=== PATIENT | male | born 1935 | race Caucasian/White ===

== ENCOUNTER 2020-07-21 13:10 | Outpatient (REF) | payer MEDICARE, SELFPAY | END 2020-07-21 13:11 | disposition home or self-care (01) | LOC: HO.HMGCLDS 13:10 | PROVIDERS: Visit Provider Internal Medicine | DX: Z20.828 Contact with and (suspected) exposure to other viral communicable diseases (principal) | CPT/HCPCS: C9803; U0003 ==

== ENCOUNTER 2020-09-04 15:46 | Outpatient (REF) | payer MEDICARE, SELFPAY ==
--- NOTE | 2020-09-04 15:49 | MR_ITS ---
EXAMINATION: MR ANGIOGRAPHY BRAIN WITHOUT CONTRAST CLINICAL INFORMATION: Follow-up cerebral artery aneurysm. COMPARISON: MR angiogram of the head 01/21/2018. TECHNIQUE: A 3-dimensional noncontrast [id number] MR angiogram of the head was performed. MIP reconstructions were generated in multiple orientations at the acquisition workstation. Multiple three-dimensional surface rendered images and maximum intensity projection images were generated on a dedicated 3-D lab workstation. Arterial stenoses are measured in accordance with NASCET criteria or similar method if applicable. FINDINGS: Again there is an anteriorly projecting aneurysm measuring 3.4 mm from base to apex involving the distal M1 segment of the left middle cerebral artery. This finding has not substantially changed when compared to most recent prior examination from 01/21/2018. A much smaller presumed aneurysm involving the anterior margin of the distal M1 segment of the right middle cerebral artery is also unchanged measuring approximately 1.4 mm from base apex. Otherwise no new aneurysm is visualized elsewhere within the intracranial compartment. Intracranial internal carotid arteries are patent. The intradural vertebral artery segments and basilar artery are patent. No high-grade stenosis or proximal occlusion is visualized within the intracranial vessels. MR/MR angio head wo con IMPRESSION: Stable examination. An anteriorly projecting 3.4 mm aneurysm involving the distal M1 segment of the left middle cerebral artery remains unchanged. A much smaller contour abnormality involving the anterior margin of the right middle cerebral artery is also unchanged presumed representing a second tiny aneurysm measuring 1.4 mm.
== END 2020-09-04 15:47 | disposition home or self-care (01) ==
LOC: HO.MRI 15:46
PROVIDERS: Visit Provider Psychiatry & Neurology Neurology
DX: I67.1 Cerebral aneurysm, nonruptured (principal)
CPT/HCPCS: 70544

== ENCOUNTER 2021-10-24 12:15 | Inpatient (IN) | payer MEDICARE, SELFPAY ==
--- NOTE | 2021-10-24 | ECG_ITS ---
Test Reason : CHEST PAIN Blood Pressure : / mmHG Vent. Rate : 068 BPM Atrial Rate : 000 BPM P-R Int : 000 ms QRS Dur : 100 ms QT Int : 432 ms P-R-T Axes : 000 -27 145 degrees QTc Int : 459 ms Normal sinus rhythm Premature atrial complexes Minimal voltage criteria for LVH, may be normal variant ( [place] product ) Anteroseptal infarct (cited on or before 23-JAN-2017) T wave abnormality, consider lateral ischemia Abnormal ECG When compared with ECG of 23-JAN-2017 13:45, No significant changes seen Referred By: Generic ED Physician Electronically Signed By:CARMITA NAQVI
--- NOTE | ~2021-10-24 | CT_ITS ---
EXAMINATION: CT ABDOMEN AND PELVIS WITHOUT CONTRAST CLINICAL INFORMATION: Abdominal distention, nausea and vomiting COMPARISON: Renal ultrasound 08/08/2016, CT abdomen pelvis 07/05/2016 TECHNIQUE: Multidetector volumetric imaging was performed from the superior aspect of the liver through the pubic symphysis. Sagittal and coronal reformatted images were obtained on the technologist's workstation. This CT examination was performed using dose optimization techniques as appropriate, variously including the following: *Automated exposure control *Adjustment of mA and/or kV according to patient size (this includes techniques or standardized protocols for targeted exams where dose is matched to indication/reason for exam; i.e. extremities or head) *Use of iterative reconstruction technique DLP: 390 mGy-cm FINDINGS: LUNG BASES: Chronic emphysematous changes and probable fibrotic changes are seen at the lung bases. Some minimal traction bronchiectasis is present. No significant effusion or lung masses seen LIVER, GALLBLADDER, AND BILIARY TREE: The liver is normal in size, shape, and attenuation. No focal hepatic lesion or biliary ductal dilatation is present. The gallbladder is unremarkable with no evidence of radiopaque gallstones, gallbladder wall thickening, or obvious pericholecystic inflammatory changes. PANCREAS: Unremarkable. SPLEEN: Unremarkable. ADRENAL GLANDS: Unremarkable. KIDNEYS AND URETERS: The kidneys are normal in size, shape, and attenuation. Again seen are scattered calcifications throughout both kidneys which appear to be vascular in nature. Bilateral water density cysts are present, Bosniak class I. No hydronephrosis, hydroureter, or definite intrarenal collecting system calculi seen. Moderate bilateral perinephric stranding. BLADDER: Bladder is grossly abnormal and markedly trabeculated with multiple intramural diverticula. Mucosal masses cannot be excluded. GASTROINTESTINAL TRACT: A small hiatal hernia is present which has increased in size since 2016. Marked colonic diverticular changes are present without evidence of diverticulitis. The left upper quadrant, there are abnormal small bowel loops with dilatation and thickening which are most likely the cause of the portal venous gas. This could be due to enteritis or other inflammatory process. No small bowel obstruction is seen.. The appendix is unremarkable. ABDOMINAL WALL: No significant hernia is appreciated. LYMPH NODES: Normal. VASCULAR: Severe atherosclerotic changes present in the aorta and its branches. Suspect bilateral common iliac disease as well as bilateral renal artery stenoses and possible celiac and SMA stenoses. PELVIC VISCERA: Unremarkable. OSSEOUS STRUCTURES: Degenerative changes are present in the spine with scoliosis convex to the right. There is fusion from L3 through S1. Degenerative changes present in both hips, right greater than left CT/CT abdomen pelvis wo con IMPRESSION: 1. Abnormal small bowel in the left upper quadrant with equalization of other small bowel with associated portal venous gas. These findings may be related to an enteritis or other inflammatory process. 2. Markedly dilated bladder extending well above the umbilicus. Insertion of a Taveras catheter are probably help this patient's abdominal distention. The bladder is grossly abnormal with trabeculations and mucosal abnormalities cannot be excluded. 3. Severe atherosclerotic disease 4. Marked degenerative changes in the spine. Fleischner guidelines were followed.
--- NOTE | ~2021-10-24 | XR_ITS ---
EXAMINATION: XR CHEST CLINICAL INFORMATION: Chest pain COMPARISON: None TECHNIQUE: 2 views of the chest were obtained. FINDINGS: The lungs are well-expanded and clear of acute process. The heart size and pulmonary vascularity is normal. There is valvular stent and surgical jose carlos in the left upper chest from previous intervention. No gross bony abnormality. XR/XR chest 2V IMPRESSION: No acute cardiopulmonary process seen.
[2021-10-24 14:25] VITALS: BP 218/68; PULSE 68; RESP 16; TEMP 36.6; O2SAT 97; BMI 20.5
[2021-10-24 14:51] LABS: MANUAL DIFF FLAG NO
[2021-10-24 14:53] LABS: Basophils Absolute Auto 0.1 X10*3/uL (0.0-0.2); Basophils Percent Auto 0.4 % (0-2); Eosinophils Absolute Auto 0.1 X10*3/uL (0.0-0.4); Eosinophils Percent Auto 0.6 % (0-4); Hematocrit 41.2 % (42.0-52.0); Hemoglobin 12.9 g/dl (14.0-18.0); Imm Gran Abs Auto 0.09 X10*3/uL (0.00-0.03); Imm Gran Pct Auto 0.6 % (0.0-0.4); Lymphocytes Absolute Auto 1.8 X10*3/uL (1.2-4.9); Lymphocytes Percent Auto 11.1 % (20-40); Mean Corpuscular HGB Conc 31.3 g/dl (31.0-36.0); Mean Corpuscular Hemoglobin 29.3 pg (27.0-33.0); Mean Corpuscular Volume 93.6 fL (80.0-98.0); Mean Platelet Volume 9.8 fL (9.4-12.4); Monocytes Absolute Auto 0.9 X10*3/uL (0.1-1.2); Monocytes Percent Auto 5.8 % (2-11); Neutrophils Absolute Auto 13.2 x10*3/uL (2.0-8.3); Neutrophils Percent Auto 81.5 % (45-73); Platelet Count 266 X10*3/uL (160-400); Red Cell Distribution Width 14.3 % (11.0-16.0); White Blood Count 16.2 X10*3/uL (4.8-10.8)
[2021-10-24 15:21] LABS: Alanine Aminotransferase 17 U/L (0-40); Albumin Level 4.4 g/dL (3.5-5.0); Alkaline Phosphatase 74 U/L (39-117); Anion Gap 17 (12-20); Aspartate Amino Transferase 20 U/L (5-37); Bilirubin Direct 0.2 mg/dL (0.0-0.5); Bilirubin Total 0.5 mg/dL (0.0-1.0); Blood Urea Nitrogen 53 mg/dL (9-16); Calcium 10.5 mg/dL (8.4-10.2); Carbon Dioxide 23 mmol/L (22-29); Chloride 106 mmol/L (96-108); Creatinine Clr Calc Pharmacy 16.5; Estimated Glomerular Filt Rate 21; Glucose Random 139 mg/dL (60-115); Potassium 5.7 mmol/L (3.3-5.1); Sodium 140 mmol/L (135-145); Total Protein 7.9 g/dL (6.5-8.0)
[2021-10-24 16:59] LABS: B Type Natriuretic Peptide 634 pg/mL (<100); Troponin-I High Sensitivity 18.3 ng/L (<3.5-35.0)
--- NOTE | 2021-10-24 17:00 | ED.ABDPAIN ---
HPI - Abdominal Pain General Chief Complaint: Abdominal Pain Stated Complaint: N/V/D,weakness Time Seen by Provider: 10/24/21 16:22 Source: patient Mode of arrival: ambulatory History of Present Illness HPI narrative: 85-year-old male with a past medical history of aortic valve replacement, CVA, COPD, CKD, presenting to the ED complaining of upper abdominal pain and chest pain beginning last night with associated nausea and vomiting. Reports abdominal distension. Denies fever, chills, new or worsening cough, diarrhea, constipation, dysuria/hematuria, pedal edema. Last BM this morning MD elicited complaint: abdominal pain Onset (ago): day(s) Related Data Home Medications Medication Instructions Recorded Confirmed aspirin 81 mg tablet,delayed 81 mg PO DAILY 10/24/21 10/24/21 release atorvastatin 10 mg tablet 1 tab PO BEDTIME 10/24/21 10/24/21 calcitriol 0.25 mcg capsule 0.25 mcg PO Q2D 10/24/21 10/24/21 cholecalciferol (vitamin D3) 50 50 mcg PO DAILY 10/24/21 10/24/21 mcg (2,000 unit) tablet (Vitamin D3) cyanocobalamin (vitamin B-12) 1,500 mcg PO DAILY 10/24/21 10/24/21 1,500 mcg tablet,extended release ferrous sulfate 324 mg (65 mg 648 mg PO DAILY 10/24/21 10/24/21 iron) tablet,delayed release hydralazine 10 mg tablet 1 tab PO TID 10/24/21 10/24/21 metoprolol tartrate 25 mg tablet 1 tab PO BID 10/24/21 10/24/21 oxycodone 20 mg tablet 1 tab PO BID PRN 10/24/21 10/24/21 tamsulosin 0.4 mg capsule 1 cap PO DAILY 10/24/21 10/24/21 Allergies Allergy/AdvReac Type Severity Reaction Status Date / Time No Known Allergies Allergy Verified 10/24/21 14:24 [No Known Allergies*] Review of Systems Review of Systems Constitutional: No Fever, No Chills, No Fatigue, No Malaise ENT/Mouth: No Ear Pain, No Nasal Congestion, No sore throat, No Rhinorrhea, No Swallowing Difficulty Eyes: No Eye Pain, No Swelling, No Redness Cardiovascular: + Chest Pain, No SOB, No Dyspnea on Exertion, No Orthopnea, No Edema, No Palpitations Respiratory: No Cough, No Sputum, No Wheezing, No Dyspnea Gastrointestinal: + Nausea, + Vomiting, No Diarrhea, No Constipation, + Abdominal pain Genitourinary: No Dysuria, No Urinary Frequency, No Hematuria, No Urinary Incontinence, No Flank Pain, No Urinary Flow Changes Musculoskeletal: No joint pain, No Myalgias, No Joint Swelling Skin: No Skin Lesions, No rash Neuro: No Weakness, No Numbness, No Loss of Consciousness, No Headache Yes all other systems are reviewed and are negative FOR[facility]LY [facility], [facility] Past Medical History Attestation statement: The following information was validated with the patient. Medical History CVA (cerebral vascular accident) Surgical History H/O aortic valve replacement with porcine valve Social History Social History Advance Directives: No Advance Directives Information Provided: No Physical Exam ED Vital Signs: Vital Signs - 24 hr 10/24/21 14:25 Temperature 98 F Pulse Rate 68 Respiratory Rate 16 Blood Pressure 218/68 H Pulse Oximetry 97 BMI result Body Mass Index 20.5 Const General: cooperative Orientation/consciousness: patient oriented x3 Limitations: no limitations HENMT Head: Yes normal to inspection Ears: hearing grossly normal bilaterally General nose exam: Normal external nose present Face and sinus: Yes normal facial exam Eyes General: appearance normal, both eyes and all related structures EOM: EOMs intact bilaterally Neck Neck: Yes normal visual inspection and Yes no meningeal signs Resp Effort & Inspection: normal respiratory effort Auscultation: wheezes expiratory wheezes and lower bilaterally Cardio Rate: regular rate Heart sounds: S1 normal heart sound present and S2 normal heart sound present GI Inspection: Yes normal to inspection and Yes distended Palpation (GI): Soft to palpation, Tenderness to palpation present (GI) in the epigastrum, in the LUQ and in the RUQ, no guarding and not rigid Skin Rashes: no rashes Wounds: no wounds Neuro General: patient oriented x3 and no meningeal signs Gait exam (Neuro): Normal gait present Extrem General: Yes normal to inspection Course Course Course Narrative: -1700--noted leukocytosis of 16.2 likely reactive from nausea/emesis > empiric IV Zosyn ordered as well as lactic/blood cultures -potassium elevated to 5.7 > p.o. Kayexalate and albuterol ordered. Will repeat. -BUN/creatinine elevated acute on chronically (labs from 2018 creatinine 2.2 which appears to be around pts baseline- no recent priors) -initial troponin 18.3 >will obtain 3 hour repeat. BNP 634 (elevated in the past) XR chest 2V IMPRESSION: No acute cardiopulmonary process seen. -EKG showing AFib, patient with no reported history >[id number] Score recommend anticoagulation, however patient with history of guaiac-positive stool -1800--ED care transferred to [facility] pending remaining labs, lactic, repeat potassium, CT results, and anticipated admission MDM - Abdominal Pain MDM Narrative Medical decision making narrative: 85-year-old male with a past medical history of aortic valve replacement, CVA, COPD, presenting to the ED complaining of upper abdominal pain and chest pain beginning last night with associated nausea and vomiting. On exam hypertensive, appears in pain, abdomen distended with upper abdominal tenderness, no rebound or guarding, lungs with bibasilar expiratory wheeze. Concern for atypical ACS vs pancreatitis vs cholecystitis/lithiasis vs ?SBO. Concern for mild COPD exacerbation. concern for dissection/AAA. Plan: EKG, labs, UA, CXR, CT abdomen/pelvis, symptomatic treatment, re-evaluate Low concern for severe sepsis at this time Differential Diagnosis Differential diagnosis: Likely abdominal pain, acute appendicitis, constipation, diverticulitis, gastroenteritis, gastritis, pancreatitis, peptic ulcer disease and small bowel obstruction Medical Records Attestation: I reviewed the patient's medical records. Lab Data Attestation: I reviewed the patient's lab results. Result diagrams: 10/24/21 14:45 10/24/21 14:45 Labs: Lab Results 10/24/21 10/24/21 10/24/21 Range/Units 14:45 14:45 14:45 WBC 16.2 H (4.8-10.8) X10*3/uL RBC 4.40 L (4.60-5.80) X10*6/uL Hgb 12.9 L (14.0-18.0) g/dl Hct 41.2 L (42.0-52.0) % MCV 93.6 (80.0-98.0) fL MCH 29.3 (27.0-33.0) pg MCHC 31.3 (31.0-36.0) g/dl RDW 14.3 (11.0-16.0) % Plt Count 266 (160-400) X10*3/uL MPV 9.8 (9.4-12.4) fL Immature Gran % (Auto) 0.6 H (0.0-0.4) % Neut % (Auto) 81.5 H (45-73) % Lymph % (Auto) 11.1 L (20-40) % Mckean % (Auto) 5.8 (2-11) % Eos % (Auto) 0.6 (0-4) % Baso % (Auto) 0.4 (0-2) % Lymph # (Auto) 1.8 (1.2-4.9) X10*3/uL Mckean # (Auto) 0.9 (0.1-1.2) X10*3/uL Eos # (Auto) 0.1 (0.0-0.4) X10*3/uL Baso # (Auto) 0.1 (0.0-0.2) X10*3/uL Abs Immat Gran (auto) 0.09 H (0.00-0.03) X10*3/uL Absolute Neuts (auto) 13.2 H (2.0-8.3) x10*3/uL Absolute Nucleated RBC 0.000 (0.0-0.012) X10*3/uL Nucleated RBC % (auto) 0.0 (0.0-0.2) /100WBC Sodium 140 (135-145) mmol/L Potassium 5.7 H (3.3-5.1) mmol/L Chloride 106 (96-108) mmol/L Carbon Dioxide 23 (22-29) mmol/L Anion Gap 17 (12-20) BUN 53 H (9-16) mg/dL Creatinine 2.93 H (0.5-1.4) mg/dL Estim Creat Clear Calc 16.5 Estimated GFR 21 Random Glucose 139 H (60-115) mg/dL Calcium 10.5 H (8.4-10.2) mg/dL Magnesium 2.1 (1.6-2.6) mg/dL Total Bilirubin 0.5 (0.0-1.0) mg/dL Direct Bilirubin 0.2 (0.0-0.5) mg/dL AST 20 (5-37) U/L ALT 17 (0-40) U/L Alkaline Phosphatase 74 (39-117) U/L Troponin I High Sens 18.3 (<3.5-35.0) ng/L B-Natriuretic Peptide 634 H (<100) pg/mL Total Protein 7.9 (6.5-8.0) g/dL Albumin 4.4 (3.5-5.0) g/dL Lipase 35 (8-78) U/L ECG Data Attestation: I personally reviewed and interpreted this ECG as follows: ECG interpretation date: 10/24/21 ECG interpretation time: 14:28 Interpretation: EKG showing AFib at a rate of 68. QTC 459. T-wave abnormality in lateral leads. No STEMI Discharge Plan Discharge Clinical Impression: New onset a-fib, Abdominal pain, Acute hyperkalemia, Acute kidney injury superimposed on CKD Patient Disposition: Still a Patient Prescriptions: No Action hydralazine 10 mg tablet 1 tab PO TID 0RF atorvastatin 10 mg tablet 1 tab PO BEDTIME 0RF tamsulosin 0.4 mg capsule 1 cap PO DAILY 0RF metoprolol tartrate 25 mg tablet 1 tab PO BID 0RF oxycodone 20 mg tablet 1 tab PO BID PRN (Reason: Pain) 0RF aspirin [Aspir-81] 81 mg Tablet,Delayed Release (Dr/Ec) 81 mg PO DAILY 0RF Vitamin B-12 1,500 mcg Tablet Extended Release 1,500 mcg PO DAILY 0RF calcitriol 0.25 mcg Capsule 0.25 mcg PO Q2D 0RF ferrous sulfate 324 mg (65 mg iron) Tablet,Delayed Release (Dr/Ec) 648 mg PO DAILY 0RF cholecalciferol (vitamin D3) [Vitamin D3] 50 mcg (2,000 unit) Tablet 50 mcg PO DAILY 0RF
--- NOTE | 2021-10-24 17:05 | PHA.MEDREC ---
Pharmacy Consult ? Medication Reconciliation Pharmacy has completed the medication reconciliation.
[2021-10-24 17:07] LABS: Lipase 35 U/L (8-78); Magnesium 2.1 mg/dL (1.6-2.6)
[2021-10-24 18:21] VITALS: BP 197/77; PULSE 84; RESP 16; TEMP 37.3; O2SAT 94
[2021-10-24 18:21] LABS: COVID-19 Test Negative (Negative)
[2021-10-24 18:46] LABS: Lactic Acid 1.1 mmol/L (0.5-2.0)
[2021-10-24 18:55] LABS: Anion Gap 17 (12-20); Blood Urea Nitrogen 53 mg/dL (9-16); Calcium 10.1 mg/dL (8.4-10.2); Carbon Dioxide 21 mmol/L (22-29); Chloride 107 mmol/L (96-108); Creatinine Clr Calc Pharmacy 17.6; Estimated Glomerular Filt Rate 22; Glucose Random 114 mg/dL (60-115); Potassium 4.3 mmol/L (3.3-5.1); Sodium 141 mmol/L (135-145); Troponin-I High Sensitivity 24.6 ng/L (<3.5-35.0)
[2021-10-24 18:56] LABS: Appearance Urine CLOUDY; Color Urine YELLOW; Glucose Urine UA 100 MG/DL (NEG); Leukocyte Esterase Urine 3+ (NEG); Nitrite Urine POS (NEG); UACC Culture Trigger YES; Urine Blood 1+ (NEG); Urine Ketones NEG (NEG); Urine Protein 2+ MG/DL (NEG-TRACE)
[2021-10-24] MEDS: Sodium Polystyrene Sulfon/Sorb 15 GM/60 ML ORAL.SUSP 45 GM PO (19:02)
[2021-10-24] MEDS: ondansetron HCL 4 MG/2 ML VIAL IVPUSH (19:03)
[2021-10-24] MEDS: Piperacillin Sodium/Tazobactam 2.25 GM in 0.9 % Sodium Chloride 50 ML IV (19:03)
[2021-10-24] MEDS: 0.9 % Sodium Chloride 500 ML 999 ML IV (19:03)
[2021-10-24 19:10] LABS: Bacteria Urine TRACE /LPF; Renal Epithelial Cells Urine 1+ /LPF; Squamous Epithelial Cell Urine TRACE /LPF; WBC Urine TNTC /HPF (0-4)
[2021-10-24 19:11] LABS: Mucus Urine 3+ /LPF; WBC Clumps Urine NOTED
--- NOTE | 2021-10-24 22:26 | P.HPHOSP_ITS ---
History of Present Illness Date of Service: 10/24/21 Chief Complaint: abd pain this is an 85-year-old male with past medical history of CVA, aortic valve replacement, COPD, CKD who presents to the hospital with complaints of abdominal pain as well as midsternal chest pain. Patient reports that his symptoms star nae the night before, worsened over the day. He has had nausea and 1 episode of vomiting, no fever some chills. Patient reports midsternal chest pain is severe, nonradiating, constant, stabbing pain. He denies having any palpitations. No change in vision, he has history of CVA with chronic weakness on the right upper extremity, no new weakness numbness or tingling. He denies any cough, no shortness of breath. in regards to the abdominal pain, localized to the lower abdomen, nonradiating, 8/10, constant, not associated with any alleviating or exacerbating factors. Patient reports that he has had decreased urinary output for the past 24 hours. He denies any dysuria, urgency, or frequency. No lower extremity edema. On arrival to the ED patient hemodynamically stable with no significant abnormal vitals Labs are significant for WBC count of 16.2, hemoglobin of 12.9, initial pot assium of 5.7 that resolved 4.3 after repeat labs, BUN of 53, creatinine of 2.93 that improved to 2.75 after IV fluids, BNP of 634, UA that is positive for nitrites, leukocyte Estrace and WBC. Abdomen pelvic CT shows abnormal small bowel in the left upper quadrant with equalization of other small bowels with associated portal venous gas, this may be related to enteritis or other inflammatory process. The bladder is grossly abnormal with trabeculation and mucosal abnormalities cannot be excluded. Patient was also found to have urinary retention with Taveras catheter draining more than 700 cc of urine EKG showed Sinus rhythm with PACs and non-specific ST-Twave changes that were present on previous EKGs pt given IV abx, IV fluids and will be admitted for further management Review of Systems Review of Systems: Yes all other systems are reviewed and are negative [facility] Medical History (Updated 10/25/21 @ 06:30 by Cleve Mckeon MD) BPH (benign prostatic hyperplasia) CKD (chronic kidney disease) COPD (chronic obstructive pulmonary disease) CVA (cerebral vascular accident) Hypertension Surgical History (Updated 10/25/21 @ 06:22 by Cleve Mckeon MD) H/O aortic valve replacement with porcine valve S/P AVR (aortic valve replacement) Social History (Updated 10/25/21 @ 06:25 by Cleve Mckeon MD) Alcohol intake: never Tobacco use type: Cigarette Cigarette Packs Per Day: 1 Advance Directives: No Advance Directives Information Provided: No Meds Allergies Allergy/AdvReac Type Severity Reaction Status Date / Time No Known Allergies Allergy Verified 10/24/21 14:24 [No Known Allergies*] Active Medications: Current Medications Acetaminophen (Acetaminophen 325 Mg Tablet) 650 mg PO Q6H PRN PRN Reason: Pain, Mild (Pain Scale 1-3) Docusate Sodium (Docusate Sodium 100 Mg Capsule) 100 mg PO DAILY PRN PRN Reason: Constipation Enoxaparin Sodium (Enoxaparin Sodium 40 Mg/0.4 Ml Syringe) 40 mg SUBCUT Q24H TORY Lactated Ringer's (Lr) 1,000 mls @ 100 mls/hr IVCONT .Q10H TORY Ondansetron HCl (Ondansetron Hcl 4 Mg/2 Ml Vial) 4 mg IVPUSH Q8H PRN PRN Reason: Nausea and Vomiting Pharmacy Consult (Consult Rx Perform Med Rec) 1 each MISCELLANE ONCE PRN PRN Reason: Consult order Pharmacy Consult (Consult Rx Perform Med Rec) 1 each MISCELLANE ONCE PRN PRN Reason: Consult order Sodium Chloride (0.9 % Sodium Chloride Flush 3 Ml Syringe) 3 ml IVFLUSH QSHIFT [facility] Home Medications Medication Instructions Recorded Confirmed Last Taken Type aspirin 81 mg tablet,delayed 81 mg PO DAILY 10/24/21 10/24/21 10/24/21 History release atorvastatin 10 mg tablet 1 tab PO BEDTIME 10/24/21 10/24/21 10/23/21 History calcitriol 0.25 mcg capsule 0.25 mcg PO Q2D 10/24/21 10/24/21 Unknown History cholecalciferol (vitamin D3) 50 50 mcg PO DAILY 10/24/21 10/24/21 10/24/21 History mcg (2,000 unit) tablet (Vitamin D3) cyanocobalamin (vitamin B-12) 1,500 mcg PO DAILY 10/24/21 10/24/21 10/24/21 History 1,500 mcg tablet,extended release ferrous sulfate 324 mg (65 mg 648 mg PO DAILY 10/24/21 10/24/21 10/24/21 History iron) tablet,delayed release hydralazine 10 mg tablet 1 tab PO TID 10/24/21 10/24/21 10/24/21 History metoprolol tartrate 25 mg tablet 1 tab PO BID 10/24/21 10/24/21 10/24/21 History oxycodone 20 mg tablet 1 tab PO BID PRN 10/24/21 10/24/21 10/24/21 History tamsulosin 0.4 mg capsule 1 cap PO DAILY 10/24/21 10/24/21 10/24/21 History Physical Exam Vital Signs and Narrative: Vital Signs: Last Vital Signs Temp 99.2 F 10/24/21 18:21 Pulse 84 10/24/21 18:21 Resp 16 10/24/21 18:21 BP 197/77 H 10/24/21 18:21 Pulse Ox 94 10/24/21 18:21 BMI result Body Mass Index 20.5 Const: General: cooperative and no acute distress Orientation/consciousness: patient oriented x3 Eyes: General: appearance normal, both eyes and all related structures Resp: Effort & Inspection: normal respiratory effort Auscultation: clear to auscultation bilaterally Cardio: Rate: regular rate Rhythm: regular rhythm GI: Other: diffuse tenderness no rebound or guarding Palpation (GI): Soft to palpation Auscultation: normal bowel sounds Skin: General skin exam: no rashes or lesions noted Neuro: Other: has right-sided facial droop, right upper extremity 4/5 strength General: p atient oriented x3 Extrem: General: Yes normal to inspection and Yes no pedal edema Results Labs CBC and Chem 7: 10/24/21 14:45 10/24/21 17:56 Labs: Laboratory Results - last 24 hr 10/24/21 10/24/21 10/24/21 14:45 14:45 14:45 MCV 93.6 MCH 29.3 MCHC 31.3 RDW 14.3 Plt Count 266 MPV 9.8 Immature Gran % (Auto) 0.6 H Neut % (Auto) 81.5 H Lymph % (Auto) 11.1 L Overton % (Auto) 5.8 Eos % (Auto) 0.6 Baso % (Auto) 0.4 Lymph # (Auto) 1.8 Overton # (Auto) 0.9 Eos # (Auto) 0.1 Baso # (Auto) 0.1 Abs Immat Gran (auto) 0.09 H Absolute Neuts (auto) 13.2 H Absolute Nucleated RBC 0.000 Nucleated RBC % (auto) 0.0 Anion Gap 17 Creatinine 2.93 H Estim Creat Clear Calc 16.5 Estimated GFR 21 Random Glucose 139 H Lactic Acid Calcium 10.5 H Magnesium 2.1 Total Bilirubin 0.5 Direct Bilirubin 0.2 AST 20 ALT 17 Alkaline Phosphatase 74 B-Natriuretic Peptide 634 H Total Protein 7.9 Albumin 4.4 Lipase 35 Urine Color Urine Appearance Urine pH Ur Specific Busy Urine Protein Urine Glucose (UA) Urine Ketones Urine Blood Urine Nitrite Ur Leukocyte Esterase Urine RBC Urine WBC Urine WBC Clumps Ur Squamous Epith Cells Ur Renal Epithelial Cell Urine Bacteria Urine Mucus COVID-19 (KARINA) COVID-19 [employer] 10/24/21 10/24/21 10/24/21 17:56 17:56 17:56 MCV MCH MCHC RDW Plt Count MPV Immature Gran % (Auto) Neut % (Auto) Lymph % (Auto) Overton % (Auto) Eos % (Auto) Baso % (Auto) Lymph # (Auto) Overton # (Auto) Eos # (Auto) Baso # (Auto) Abs Immat Gran (auto) Absolute Neuts (auto) Absolute Nucleated RBC Nucleated RBC % (auto) Anion Gap 17 Creatinine 2.75 H Estim Creat Clear Calc 17.6 Estimated GFR 22 Random Glucose 114 Lactic Acid 1.1 Calcium 10.1 Magnesium Total Bilirubin Direct Bilirubin AST ALT Alkaline Phosphatase B-Natriuretic Peptide Total Protein Albumin Lipase Urine Color Urine Appearance Urine pH Ur Specific Busy Urine Protein Urine Glucose (UA) Urine Ketones Urine Blood Urine Nitrite Ur Leukocyte Esterase Urine RBC Urine WBC Urine WBC Clumps Ur Squamous Epith Cells Ur Renal Epithelial Cell Urine Bacteria Urine Mucus COVID-19 (KARINA) Negative COVID-19 [employer] See Note 10/24/21 18:42 MCV MCH MCHC RDW Plt Count MPV Immature Gran % (Auto) Neut % (Auto) Lymph % (Auto) Overton % (Auto) Eos % (Auto) Baso % (Auto) Lymph # (Auto) Overton # (Auto) Eos # (Auto) Baso # (Auto) Abs Immat Gran (auto) Absolute Neuts (auto) Absolute Nucleated RBC Nucleated RBC % (auto) Anion Gap Creatinine Estim Creat Clear Calc Estimated GFR Random Glucose Lactic Acid Calcium Magnesium Total Bilirubin Direct Bilirubin AST ALT Alkaline Phosphatase B-Natriuretic Peptide Total Protein Albumin Lipase Urine Color YELLOW Urine Appearance CLOUDY Urine pH 6.0 Ur Specific Busy 1.020 Urine Protein 2+ H Urine Glucose (UA) 100 H Urine Ketones NEG Urine Blood 1+ H Urine Nitrite POS H Ur Leukocyte Esterase 3+ H Urine RBC 1-4 Urine WBC TNTC H Urine WBC Clumps NOTED Ur Squamous Epith Cells TRACE Ur Renal Epithelial Cell 1+ Urine Bacteria TRACE Urine Mucus 3+ COVID-19 (KARINA) COVID-19 Clin Com Imaging Radiologist's Impressions: Impressions Chest X-Ray 10/24/21 14:58 IMPRESSION: No acute cardiopulmonary process seen. Abdomen/Pelvis CT 10/24/21 17:29 IMPRESSION: 1. Abnormal small bowel in the left upper quadrant with equalization of other small bowel with associated portal venous gas. These findings may be related to an enteritis or other inflammatory process. 2. Markedly dilated bladder extending well above the umbilicus. Insertion of a Taveras catheter are probably help this patient's abdominal distention. The bladder is grossly abnormal with trabeculations and mucosal abnormalities cannot be excluded. 3. Severe atherosclerotic disease 4. Marked degenerative changes in the spine. Fleischner guidelines were followed. Assessment and Plan (1) Enteritis: Status: Acute (2) Acute kidney injury superimposed on CKD: Status: Acute (3) Abnormal CT scan, bladder: Status: Acute (4) Chest pain: Status: Acute (5) UTI (urinary tract infection): Status: Acute (6) Urinary retention: Status: Acute Plan 85-year-old male with past medical history of CVA, COPD, BPH presents the hospital with abdominal pain as well as chest pain. Found to have urinary retention, UTI, as well as enteritis # abdominal pain - acute abdominal pain secondary to enteritis - CT abdomen revealing inflammatory changes as above - will place patient on IV antibiotics, as well as p.o. Flagyl - clear liquid diet # UTI - has leukocytosis, positive UA - complicated by urinary retention - will treat with IV antibiotic - follow cultures # chest pain - noncardiac - troponin negative x2 - EKG reviewed by local announcer shows sinus rhythm with PACs, no evidence of AFib - at this time will monitor # KARLA on CKD - no previous creatinine for comparison but has elevated BUN and creatinine with improvement after fluid resuscitation - will continue fluids - follow BMP - will hold off on nephrotoxic meds # urinary retention - most likely multifactorial secondary to BPH, UTI, as well as abnormality seen on abdominal CT - patient currently has Taveras catheter in, will continue - urology consult # abnormal CT of the bladder - concerning for malignancy - urology consult # COPD - not in exacerbation - continue home inhalers # history of CVA - no new changes - continue aspirin and statin # hypertension - stable - continue home medications DVT ppx: lovenox Quality Stroke Does the patient have a stroke diagnosis?: No VTE Prior VTE?: No VTE Risk Level:: Medical - moderate - high VTE Device Contraindication: Treatment Not Indicated VTE Drug Contraindication: N/A - Med Ordered
[2021-10-24] MEDS: cefTRIAXone sodium 1 GM in 0.9 % Sodium Chloride 50 ML IV (23:15)
[2021-10-24] MEDS: Enoxaparin Sodium 40 MG/0.4 ML SYRINGE SUBCUT (23:15)
[2021-10-25 05:14] VITALS: BP 154/61; PULSE 95; RESP 16; TEMP 36.6; O2SAT 94
[2021-10-25] MEDS: Lactated Ringers 1,000 ML 100 ML IVCONT (06:18)
[2021-10-25 06:46] LABS: Basophils Absolute Auto 0.1 X10*3/uL (0.0-0.2); Basophils Percent Auto 0.3 % (0-2); Eosinophils Percent Auto 0.1 % (0-4); Hematocrit 39.4 % (42.0-52.0); Hemoglobin 12.5 g/dl (14.0-18.0); Imm Gran Abs Auto 0.08 X10*3/uL (0.00-0.03); Imm Gran Pct Auto 0.4 % (0.0-0.4); Lymphocytes Absolute Auto 2.4 X10*3/uL (1.2-4.9); Lymphocytes Percent Auto 12.2 % (20-40); MANUAL DIFF FLAG SCAN; Mean Corpuscular HGB Conc 31.7 g/dl (31.0-36.0); Mean Corpuscular Hemoglobin 29.6 pg (27.0-33.0); Mean Corpuscular Volume 93.4 fL (80.0-98.0); Mean Platelet Volume 10.2 fL (9.4-12.4); Monocytes Absolute Auto 2.4 X10*3/uL (0.1-1.2); Monocytes Percent Auto 12.1 % (2-11); Neutrophils Absolute Auto 14.7 x10*3/uL (2.0-8.3); Neutrophils Percent Auto 74.9 % (45-73); Platelet Count 228 X10*3/uL (160-400); Red Blood Count 4.22 X10*6/uL (4.60-5.80); Red Cell Distribution Width 14.4 % (11.0-16.0); SCAN SMEAR FLAG 1; White Blood Count 19.7 X10*3/uL (4.8-10.8)
[2021-10-25 07:09] LABS: SLIDE REVIEW VERIFIED
[2021-10-25 07:11] LABS: Anion Gap 16 (12-20); Blood Urea Nitrogen 51 mg/dL (9-16); Calcium 8.7 mg/dL (8.4-10.2); Carbon Dioxide 19 mmol/L (22-29); Chloride 112 mmol/L (96-108); Estimated Glomerular Filt Rate 23; Glucose Random 101 mg/dL (60-115); Potassium 3.2 mmol/L (3.3-5.1); Sodium 143 mmol/L (135-145)
--- NOTE | 2021-10-25 07:30 | CA_ITS ---
Transthoracic Echocardiogram Patient (Last, First, Middle): Adam Park F Gender: Male Date of : 1935 Age: 85 Procedure Date: 10/25/2021 Procedure Type: Transthoracic Echocardiogram Location: ER Height: 172.72 cm Weight: 61.24 kg BSA: 1.73 m2 Heart Rate: bpm BP: 154 / 61 mmHg Child And Adolescent Psychiatrist: KYARA Referring MD: Cleve Mckeon MD Symptoms: New onset A fib Study Quality: Fair ECG Rhythm: Sinus Conclusions: - The left ventricular systolic function is normal. The calculated ejection fraction is 63% by biplane method. - A bioprosthetic aortic valve is present. The prosthetic aortic valve appears to be functioning normally. Findings Left Ventricle Normal left ventricular cavity size. There is mildly increased left ventricular wall thickness. The left ventricular systolic function is normal. The calculated ejection fraction is 63% by biplane method. Evidence suggests grade I (mild) diastolic dysfunction. (frequent ectopy). Wall Motion Rest Echo Findings The basal inferior segment is hypokinetic. Right Ventricle Normal right ventricular cavity size and systolic function. Atria The left atrium is moderately dilated. The right atrium was not well visualized. Aortic Valve A bioprosthetic aortic valve is present. The prosthetic aortic valve appears to be functioning normally. No significant regurgitation. Mitral Valve There is mild mitral annular calcification. There is trace mitral valve regurgitation. There is no mitral valve stenosis. Pulmonic Valve The pulmonic valve was not well visualized. Tricuspid Valve Normal tricuspid valve structure. There is trace tricuspid valve regurgitation. The pulmonary artery systolic pressure is normal. Great Vessels The asc aorta is normal in size. Venous The inferior vena cava is normal in size and collapses greater than 50% with inspiration. Pericardium/Pleural There is no evidence of pericardial effusion. Prior Study Comparison Changes noted compared to prior study dated: 01/23/2017. Improved LVEF. Measurements 2D Linear Measurements IVSd: 1.08 0.6-0.9/0.6-1.0 cm LVIDd: 3.76 3.9-5.3/4.2-5.9 cm LVIDd Index: 2.17 2.4-3.2/2.2-3.1 cm/m2 LVIDs: 3.24 2.0-3.6 cm LVPWd: 1.07 0.7-1.1 cm Ao Root: 2.90 2.1-3.5 cm LA Diam: 4.90 2.7-3.8/3.0-4.0 cm LAIDs Index: 2.83 1.5-2.3 cm/m2 LV Mass: 159.40 67-162/88-224 g LV Mass Index: 92.14 43-95/49-115 g/m2 LVOT Diam: 2.10 3.0+(-)1.3 cm 2D Systolic Function EF 4C: 61.00 >55% EF 2C: 64.30 >55% EF BiP: 62.70 >55% Mitral Valve MV Pk E: 1.17 MV PK A: 1.12 MV Decel Time: 268.00 E/A: 1.00 PHT: 78.00 MVA PHT: 2.82 Decel [place]: 4.38 Aortic Valve AoV Pk Adrien: 1.90 AoV Mn Adrien: 1.18 AoV VTI: 0.38 AoV Pk Grad: 14.00 Aov Mn Grad: 6.00 EMPERATRIZ Cont.VTI: 1.61 LVOT LVOT Pk Adrien: 0.75 LVOT Mn Adrien: 0.49 LVOT VTI: 0.18 LVOT Pk Grad: 2.00 LVOT Mn Grad: 1.00 LVOT Diam: 2.10 LVOT Area: 3.46 Diastolic Function MV Pk E: 1.17 MV Pk A: 1.12 E/A: 1.00 Right Ventricle TAPSE (mm): 19.80 TVS' Adrien: 14.30 Tricuspid Valve TR Pk Adrien: 2.51 TR Pk Grad: 25.00 RA Press: 8.00 RVSP: 33.00 Great Vessels Aorta Ao Root-2D: 2.90 2.0-3.7 cm Ao Asc: 3.40 2.1-3.4 cm Updated in Other Vendor System with Status of Final Danial Carmen MD electronically signed on 10/25/2021 4:55:24 PM with status of Final
[2021-10-25] MEDS: metroNIDAZOLE 500 MG TABLET PO ×3 (07:32→23:35)
[2021-10-25 08:29] VITALS: BP 166/80; PULSE 90; RESP 21; O2SAT 95
[2021-10-25] MEDS: Cyanocobalamin (Vitamin B-12) 500 MCG TABLET 1500 MCG PO (08:31)
[2021-10-25] MEDS: Metoprolol Tartrate 25 MG TABLET PO (08:31)
[2021-10-25] MEDS: hydrALAZINE HCl 10 MG TABLET PO ×3 (08:32→21:25)
[2021-10-25] MEDS: Cholecalciferol (Vitamin D3) 25 MCG TABLET 50 MCG PO (08:32)
[2021-10-25] MEDS: Ferrous Sulfate 324 MG TABLET.DR PO ×2 (08:32→21:26)
[2021-10-25] MEDS: Aspirin Enteric Coated 81 MG TABLET.DR PO (08:32)
[2021-10-25] MEDS: Potassium Chloride Packet 20 MEQ PACKET PO (08:33)
[2021-10-25 09:09] LABS: Lactic Acid 2.6 mmol/L (0.5-2.0)
[2021-10-25 09:17] VITALS: BP 167/55; PULSE 71; RESP 12; TEMP 37; O2SAT 98
[2021-10-25 10:43] LABS: Reflex Lactate? Lactic Acid Added
--- NOTE | 2021-10-25 11:02 | P.CONCA_ITS ---
History of Present Illness History of Present Illness Date of Service: 10/25/21 Chief complaint: Uti,Lizandro Narrative: This is a cardiology consultation regarding chest pain. Patient states he used to go to [facility], Dr. Rowe. However, he states that he has not seen him recently. Otherwise, patient has a history of transcatheter aortic valve replacement was placed in 2017. At that time, he also had a cardiac catheterization that showed nonobstructive disease in circumflex and right coronary artery but was otherwise unremarkable. In any case, he states that he was actually doing quite okay but started having abdominal pain as well as chest pain and that led to the hospitalization. Then he started having lot of diarrhea as well. It seems that he also had some nausea and an episode of vomiting. Hence we been asked to assess the chest pain itself. Based on presentation, possibly more GI in nature. Otherwise currently his main issue is diarrhea than anything else. Additionally, he also has a lot of vascular issues including carotid disease status post bilateral carotid endarterectomies, stroke, hypertension, hyperlipidemia, chronic kidney disease and COPD. Review of Systems Review of Systems: Yes all other systems are reviewed and are negative Cardiovascular: Cardiovascular: Reports as per HPI, Reports no additional cardiovascular complaints, Denies acrocyanosis, Denies cool extremities, Reports chest pain, Denies diaphoresis, Denies syncope, Denies claudication, Denies leg edema, Denies lightheadedness, Denies palpitations and Denies dyspnea Respiratory: Respiratory: Denies dyspnea Neurologic: Denies syncope Endocrine: Endocrine: Denies palpitations PMFSH Past Medical History Medical History (Updated 10/25/21 @ 11:13 by Danial Carmen MD) BPH (benign prostatic hyperplasia) CKD (chronic kidney disease) COPD (chronic obstructive pulmonary disease) CVA (cerebral vascular accident) Hypertension Family History Family History (Updated 10/25/21 @ 11:08 by Danial Carmen MD) Mother CHF (congestive heart failure) Surgical History Surgical History (Updated 10/25/21 @ 11:10 by Danial Carmen MD) H/O aortic valve replacement with porcine valve S/P AVR (aortic valve replacement) Social History Social History (Updated 10/25/21 @ 06:25 by Cleve Mckeon MD) Alcohol intake: never Tobacco use type: Cigarette Cigarette Packs Per Day: 1 Advance Directives: No Advance Directives Information Provided: No Meds Allergies Allergy/AdvReac Type Severity Reaction Status Date / Time No Known Allergies Allergy Verified 10/24/21 14:24 [No Known Allergies*] Active Medications: Current Medications Acetaminophen (Acetaminophen 325 Mg Tablet) 650 mg PO Q6H PRN PRN Reason: Pain, Mild (Pain Scale 1-3) Aspirin (Aspirin Enteric Coated 81 Mg Tablet.) 81 mg PO DAILY [facility] Last Admin: 10/25/21 08:32 Dose: 81 mg Documented by: Atorvastatin Calcium (Atorvastatin Calcium 10 Mg Tablet) 10 mg PO BEDTIME [facility] Calcitriol (Calcitriol 0.25 Mcg Capsule) 0.25 mcg PO Q2D [facility] Cyanocobalamin (Cyanocobalamin (Vitamin B-12) 500 Mcg Tablet) 1,500 mcg PO DAILY [facility] Last Admin: 10/25/21 08:31 Dose: 1,500 mcg Documented by: Docusate Sodium (Docusate Sodium 100 Mg Capsule) 100 mg PO DAILY PRN PRN Reason: Constipation Enoxaparin Sodium (Enoxaparin Sodium 40 Mg/0.4 Ml Syringe) 40 mg SUBCUT Q24H [facility] Last Admin: 10/24/21 23:15 Dose: 40 mg Documented by: Ferrous Sulfate (Ferrous Sulfate 324 Mg Tablet.) 324 mg PO BID [facility] Last Admin: 10/25/21 08:32 Dose: 324 mg Documented by: Hydralazine HCl (Hydralazine Hcl 10 Mg Tablet) 10 mg PO TID [facility]; Protocol Last Admin: 10/25/21 08:32 Dose: 10 mg Documented by: Lactated Ringer's (Lr) 1,000 mls @ 125 mls/hr IVCONT .Q8H [facility] Last Infusion: 10/25/21 10:05 Dose: 125 mls/hr Documented by: Ceftriaxone Sodium 1 gm/ (Sodium Chloride) 50 mls @ 100 mls/hr IV Q24H [facility] Last Admin: 10/24/21 23:15 Dose: 100 mls/hr Documented by: Metoprolol Tartrate (Metoprolol Tartrate 25 Mg Tablet) 25 mg PO BID [facility]; Protocol Last Admin: 10/25/21 08:31 Dose: 25 mg Documented by: Metronidazole (Metronidazole 500 Mg Tablet) 500 mg PO Q8H [facility] Last Admin: 10/25/21 07:32 Dose: 500 mg Documented by: Ondansetron HCl (Ondansetron Hcl 4 Mg/2 Ml Vial) 4 mg IVPUSH Q8H PRN PRN Reason: Nausea and Vomiting Oxycodone HCl (Oxycodone Hcl Immed Release 5 Mg Tablet) 20 mg PO BID PRN PRN Reason: Pain, Moderate (Pain Scale 4-6 Pharmacy Consult (Consult Rx Perform Med Rec) 1 each MISCELLANE ONCE PRN PRN Reason: Consult order Pharmacy Consult (Consult Rx Perform Med Rec) 1 each MISCELLANE ONCE PRN PRN Reason: Consult order Sodium Chloride (0.9 % Sodium Chloride Flush 3 Ml Syringe) 3 ml IVFLUSH QSHIFT [facility] Last Admin: 10/25/21 08:33 Dose: Not Given Documented by: Vitamin D (Cholecalciferol (Vitamin D3) 25 Mcg Tablet) 50 mcg PO DAILY [facility] Last Admin: 10/25/21 08:32 Dose: 50 mcg Documented by: Home Medications Medication Instructions Recorded Confirmed Last Taken Type aspirin 81 mg tablet,delayed 81 mg PO DAILY 10/24/21 10/24/21 10/24/21 History release atorvastatin 10 mg tablet 1 tab PO BEDTIME 10/24/21 10/24/21 10/23/21 History calcitriol 0.25 mcg capsule 0.25 mcg PO Q2D 10/24/21 10/24/21 Unknown History cholecalciferol (vitamin D3) 50 50 mcg PO DAILY 10/24/21 10/24/21 10/24/21 History mcg (2,000 unit) tablet (Vitamin D3) cyanocobalamin (vitamin B-12) 1,500 mcg PO DAILY 10/24/21 10/24/21 10/24/21 History 1,500 mcg tablet,extended release ferrous sulfate 324 mg (65 mg 648 mg PO DAILY 10/24/21 10/24/21 10/24/21 History iron) tablet,delayed release hydralazine 10 mg tablet 1 tab PO TID 10/24/21 10/24/21 10/24/21 History metoprolol tartrate 25 mg tablet 1 tab PO BID 10/24/21 10/24/21 10/24/21 History oxycodone 20 mg tablet 1 tab PO BID PRN 10/24/21 10/24/21 10/24/21 History tamsulosin 0.4 mg capsule 1 cap PO DAILY 10/24/21 10/24/21 10/24/21 History Physical Exam Vital Signs: Vital Signs: Last Vital Signs Temp 98.6 F 10/25/21 09:17 Pulse 71 10/25/21 09:17 Resp 12 10/25/21 09:17 BP 167/55 H 10/25/21 09:17 Pulse Ox 98 10/25/21 09:17 BMI result Body Mass Index 20.5 Const: General: comfortable HENMT: Other: Unremarkable Neck: Neck: Yes normal visual inspection Chest: Chest palpation & inspection: normal inspection of the chest Resp: Auscultation: clear to auscultation bilaterally Cardio: Palpation: normal PMI Heart sounds: S1 normal heart sound present, S2 normal heart sound present, no gallops, Murmur heart sound present (2/6 YANG aortic area) and no rubs GI: Palpation (GI): Soft to palpation Back/Spine/Pelvis: Other: unremarkable Skin: Lesions: other Neuro: General: other Extrem: General: Yes other Psych: Mental Status: other Objective Labs and Meds Result diagrams: 10/25/21 06:27 10/25/21 06:27 Lab results: Laboratory Results - last 24 hr 10/24/21 10/24/21 10/24/21 14:45 14:45 14:45 WBC 16.2 H RBC 4.40 L Hgb 12.9 L Hct 41.2 L MCV 93.6 MCH 29.3 MCHC 31.3 RDW 14.3 Plt Count 266 MPV 9.8 Immature Gran % (Auto) 0.6 H Neut % (Auto) 81.5 H Lymph % (Auto) 11.1 L [place] % (Auto) 5.8 Eos % (Auto) 0.6 Baso % (Auto) 0.4 Lymph # (Auto) 1.8 [place] # (Auto) 0.9 Eos # (Auto) 0.1 Baso # (Auto) 0.1 Abs Immat Gran (auto) 0.09 H Absolute Neuts (auto) 13.2 H Absolute Nucleated RBC 0.000 Nucleated RBC % (auto) 0.0 Smear Tech's Comments Sodium 140 Potassium 5.7 H Chloride 106 Carbon Dioxide 23 Anion Gap 17 BUN 53 H Creatinine 2.93 H Estim Creat Clear Calc 16.5 Estimated GFR 21 Random Glucose 139 H Lactic Acid Calcium 10.5 H Magnesium 2.1 Total Bilirubin 0.5 Direct Bilirubin 0.2 AST 20 ALT 17 Alkaline Phosphatase 74 Troponin I High Sens 18.3 B-Natriuretic Peptide 634 H Total Protein 7.9 Albumin 4.4 Lipase 35 Urine Color Urine Appearance Urine pH Ur Specific [place] Urine Protein Urine Glucose (UA) Urine Ketones Urine Blood Urine Nitrite Ur Leukocyte Esterase Urine RBC Urine WBC Urine WBC Clumps Ur Squamous Epith Cells Ur Renal Epithelial Cell Urine Bacteria Urine Mucus COVID-19 (KARINA) COVID-19 Clin Com 10/24/21 10/24/21 10/24/21 17:56 17:56 17:56 WBC RBC Hgb Hct MCV MCH MCHC RDW Plt Count MPV Immature Gran % (Auto) Neut % (Auto) Lymph % (Auto) [place] % (Auto) Eos % (Auto) Baso % (Auto) Lymph # (Auto) [place] # (Auto) Eos # (Auto) Baso # (Auto) Abs Immat Gran (auto) Absolute Neuts (auto) Absolute Nucleated RBC Nucleated RBC % (auto) Smear Tech's Comments Sodium Potassium Chloride Carbon Dioxide Anion Gap BUN Creatinine Estim Creat Clear Calc Estimated GFR Random Glucose Lactic Acid 1.1 Calcium Magnesium Total Bilirubin Direct Bilirubin AST ALT Alkaline Phosphatase Troponin I High Sens 24.6 B-Natriuretic Peptide Total Protein Albumin Lipase Urine Color Urine Appearance Urine pH Ur Specific [place] Urine Protein Urine Glucose (UA) Urine Ketones Urine Blood Urine Nitrite Ur Leukocyte Esterase Urine RBC Urine WBC Urine WBC Clumps Ur Squamous Epith Cells Ur Renal Epithelial Cell Urine Bacteria Urine Mucus COVID-19 (KARINA) Negative COVID-19 Clin Com See Note 10/24/21 10/24/21 10/25/21 17:56 18:42 06:27 WBC 19.7 H RBC 4.22 L Hgb 12.5 L Hct 39.4 L MCV 93.4 MCH 29.6 MCHC 31.7 RDW 14.4 Plt Count 228 MPV 10.2 Immature Gran % (Auto) 0.4 Neut % (Auto) 74.9 H Lymph % (Auto) 12.2 L [place] % (Auto) 12.1 H Eos % (Auto) 0.1 Baso % (Auto) 0.3 Lymph # (Auto) 2.4 [place] # (Auto) 2.4 H Eos # (Auto) 0.0 Baso # (Auto) 0.1 Abs Immat Gran (auto) 0.08 H Absolute Neuts (auto) 14.7 H Absolute Nucleated RBC 0.000 Nucleated RBC % (auto) 0.0 Smear Tech's Comments VERIFIED Sodium 141 Potassium 4.3 D Chloride 107 Carbon Dioxide 21 L Anion Gap 17 BUN 53 H Creatinine 2.75 H Estim Creat Clear Calc 17.6 Estimated GFR 22 Random Glucose 114 Lactic Acid Calcium 10.1 Magnesium Total Bilirubin Direct Bilirubin AST ALT Alkaline Phosphatase Troponin I High Sens B-Natriuretic Peptide Total Protein Albumin Lipase Urine Color YELLOW Urine Appearance CLOUDY Urine pH 6.0 Ur Specific [place] 1.020 Urine Protein 2+ H Urine Glucose (UA) 100 H Urine Ketones NEG Urine Blood 1+ H Urine Nitrite POS H Ur Leukocyte Esterase 3+ H Urine RBC 1-4 Urine WBC TNTC H Urine WBC Clumps NOTED Ur Squamous Epith Cells TRACE Ur Renal Epithelial Cell 1+ Urine Bacteria TRACE Urine Mucus 3+ COVID-19 (KARINA) COVID-19 [employer]play 10/25/21 10/25/21 06:27 08:29 WBC RBC Hgb Hct MCV MCH MCHC RDW Plt Count MPV Immature Gran % (Auto) Neut % (Auto) Lymph % (Auto) [place] % (Auto) Eos % (Auto) Baso % (Auto) Lymph # (Auto) [place] # (Auto) Eos # (Auto) Baso # (Auto) Abs Immat Gran (auto) Absolute Neuts (auto) Absolute Nucleated RBC Nucleated RBC % (auto) Smear Tech's Comments Sodium 143 Potassium 3.2 L D Chloride 112 H Carbon Dioxide 19 L Anion Gap 16 BUN 51 H Creatinine 2.69 H Estim Creat Clear Calc 18.0 Estimated GFR 23 Random Glucose 101 Lactic Acid 2.6 H* Calcium 8.7 D Magnesium Total Bilirubin Direct Bilirubin AST ALT Alkaline Phosphatase Troponin I High Sens B-Natriuretic Peptide Total Protein Albumin Lipase Urine Color Urine Appearance Urine pH Ur Specific [place] Urine Protein Urine Glucose (UA) Urine Ketones Urine Blood Urine Nitrite Ur Leukocyte Esterase Urine RBC Urine WBC Urine WBC Clumps Ur Squamous Epith Cells Ur Renal Epithelial Cell Urine Bacteria Urine Mucus COVID-19 (KARINA) COVID-19 Clin Com ECG Interpretation: EKG shows sinus rhythm with premature atrial complexes; possible old anteroseptal infarct; lateral T inversions. Imaging Radiologist's impression: Impressions Chest X-Ray 10/24/21 14:58 IMPRESSION: No acute cardiopulmonary process seen. Abdomen/Pelvis CT 10/24/21 17:29 IMPRESSION: 1. Abnormal small bowel in the left upper quadrant with equalization of other small bowel with associated portal venous gas. These findings may be related to an enteritis or other inflammatory process. 2. Markedly dilated bladder extending well above the umbilicus. Insertion of a Taveras catheter are probably help this patient's abdominal distention. The bladder is grossly abnormal with trabeculations and mucosal abnormalities cannot be excluded. 3. Severe atherosclerotic disease 4. Marked degenerative changes in the spine. Fleischner guidelines were followed. Assessment and Plan (1) Chest pain: Status: Acute (2) Status post transcatheter aortic valve replacement (TAVR) using bioprosthesis: Status: Acute (3) Atherosclerotic cardiovascular disease: Status: Acute (4) NICM (nonischemic cardiomyopathy): Status: Acute Plan High sensitivity troponins are within range-18.3 and 24.6. EKG has some T inversions but no clear-cut ischemic changes. Cardiac catheterization from 2 017- circumflex and RCA-ostial 50% stenosis but otherwise unremarkable. Subsequently, he underwent#26 Shorty Fung transcatheter aortic valve replacement. Last echocardiogram from [facility] from 2017 shows LVEF of 20 25% with severe hypokinesis globally. Severely dilated left atrium. TAVR itself was functioning normally. Overall, he has lot of cardiac and vascular issues but the current admission seems to be more other GI in nature. Chest pain is also likely from this. Doubt any clear cardiac etiology for the chest pain. Echocardiogram has been requested and we will follow up on this. Will follow with you. Procedures Date of Service Date of Service: 10/25/21
[2021-10-25 12:14] VITALS: BP 176/55; PULSE 63; RESP 18; TEMP 37; O2SAT 99
--- NOTE | 2021-10-25 12:17 | MHC.CM.PN ---
Addendum entered by Kati Castelan 10/26/21 13:10: CM RECEIVED A RETURN CALL FROM PTS SON, EMILY. EMILY REPORTS THE PT LIVES WITH HIM, HIS AND THEIR CHILD HE REPORTS THE PT IS INDEPENDENT AT BASELINE AND USES A CANE 90% OF THE TIME PT ALSO HAS A WALKER AND W/C AT HOME BUT DOES NOT USE THEM PTS PCP IS CHAD ARCOS HE HAS A HCP ON FILE IMM DELIVERED, COPY SENT TO [facility], ORIGINAL AT BEDSIDE PER DISCUSSION CURRENT DC PLAN IS DC OVER THE WEEKEND FAMILY TO TRANSPORT Original Note: CM HAS ATTEMPTED TO SEE PT TWICE, PT SLEEPING. CM ATTEMPTED TO CONTACT PTS SON, EMILY ([phone]), A VM MESSAGE WAS LEFT REQUESTING A RETURN CALL AND INFORMING HIM OF PTS MEDICARE RIGHTS.
[2021-10-25 12:29] LABS: Leukocytes Stool Qualitative FEW: < 2/OIF (NEGATIVE)
--- NOTE | 2021-10-25 12:35 | PM.CNGS ---
History of Present Illness Consult details Consult date: 10/25/21 Narrative: 85-year-old male referred for abdominal pain and an abdominal CT scan. He went to the ER last night because of he describes diffuse abdominal pain which started around 07:00 o'clock in the morning yesterday. He denied any nausea or vomiting. He says that her night, his pain had actually resolved while he had been waiting in the ER. He does state that he has had significant diarrhea overnight until this morning He denies blood with his stools . Currently he actually says that he does not have any pain anymore and he says he feels much better. He does have a CAT scan showing what appears to be an inflamed segment of bowel, with small amounts of portal venous gas. There was no evidence of any free air. Review of Systems Constitutional: Constitutional: Denies chills and Denies fever(s) Cardiovascular: Cardiovascular: Denies chest pain, Denies dyspnea and Denies dyspnea on exertion Respiratory: Respiratory: Denies cough, Denies dyspnea and Denies dyspnea on exertion Gastrointestinal: Gastrointestinal: Denies hematochezia and Denies change in bowel habits Genitourinary: Genitourinary: Denies hematuria and Denies difficulty urinating Musculoskeletal: Musculoskeletal: Denies back pain and Denies limited range of motion Neurologic: Denies focal weakness and Denies convulsions Psychiatric: Psychiatric: Denies depression and Denies mood swings PMFSH Past Medical History Medical History Abnormal CT of the abdomen BPH (benign prostatic hyperplasia) CKD (chronic kidney disease) COPD (chronic obstructive pulmonary disease) CVA (cerebral vascular accident) Hypertension Family History Family History Mother CHF (congestive heart failure) Surgical History Surgical History H/O aortic valve replacement with porcine valve S/P AVR (aortic valve replacement) Social History Social History Household Members: Family Housing: House Alcohol intake: never Patient Tobacco Use Status: Current everyday Tobacco user Tobacco use type: Cigarette Cigarette Packs Per Day: 1 Cigarettes Per Day: 20.0 Advance Directives Date on File: 10/25/21 Current occupational status: retired [employer] Allergies Allergy/AdvReac Type Severity Reaction Status Date / Time No Known Allergies Allergy Verified 10/24/21 14:24 [No Known Allergies*] Active Medications: Current Medications Acetaminophen (Acetaminophen 325 Mg Tablet) 650 mg PO Q6H PRN PRN Reason: Pain, Mild (Pain Scale 1-3) Aspirin (Aspirin Enteric Coated 81 Mg Tablet.) 81 mg PO DAILY [facility] Last Admin: 10/25/21 08:32 Dose: 81 mg Documented by: Atorvastatin Calcium (Atorvastatin Calcium 10 Mg Tablet) 10 mg PO BEDTIME TORY Calcitriol (Calcitriol 0.25 Mcg Capsule) 0.25 mcg PO Q2D [facility] Cyanocobalamin (Cyanocobalamin (Vitamin B-12) 500 Mcg Tablet) 1,500 mcg PO DAILY [facility] Last Admin: 10/25/21 08:31 Dose: 1,500 mcg Documented by: Docusate Sodium (Docusate Sodium 100 Mg Capsule) 100 mg PO DAILY PRN PRN Reason: Constipation Enoxaparin Sodium (Enoxaparin Sodium 40 Mg/0.4 Ml Syringe) 40 mg SUBCUT Q24H [facility] Last Admin: 10/24/21 23:15 Dose: 40 mg Documented by: Ferrous Sulfate (Ferrous Sulfate 324 Mg Tablet.) 324 mg PO BID [facility] Last Admin: 10/25/21 08:32 Dose: 324 mg Documented by: Hydralazine HCl (Hydralazine Hcl 10 Mg Tablet) 10 mg PO TID [facility]; Protocol Last Admin: 10/25/21 08:32 Dose: 10 mg Documented by: Lactated Ringer's (Lr) 1,000 mls @ 125 mls/hr IVCONT .Q8H [facility] Last Infusion: 10/25/21 10:05 Dose: 125 mls/hr Documented by: Ceftriaxone Sodium 1 gm/ (Sodium Chloride) 50 mls @ 100 mls/hr IV Q24H [facility] Last Admin: 10/24/21 23:15 Dose: 100 mls/hr Documented by: Metoprolol Tartrate (Metoprolol Tartrate 25 Mg Tablet) 25 mg PO BID [facility]; Protocol Last Admin: 10/25/21 08:31 Dose: 25 mg Documented by: Metronidazole (Metronidazole 500 Mg Tablet) 500 mg PO Q8H [facility] Last Admin: 10/25/21 07:32 Dose: 500 mg Documented by: Ondansetron HCl (Ondansetron Hcl 4 Mg/2 Ml Vial) 4 mg IVPUSH Q8H PRN PRN Reason: Nausea and Vomiting Oxycodone HCl (Oxycodone Hcl Immed Release 5 Mg Tablet) 20 mg PO BID PRN PRN Reason: Pain, Moderate (Pain Scale 4-6 Pharmacy Consult (Consult Rx Perform Med Rec) 1 each MISCELLANE ONCE PRN PRN Reason: Consult order Pharmacy Consult (Consult Rx Perform Med Rec) 1 each MISCELLANE ONCE PRN PRN Reason: Consult order Sodium Chloride (0.9 % Sodium Chloride Flush 3 Ml Syringe) 3 ml IVFLUSH QSHIFT [facility] Last Admin: 10/25/21 08:33 Dose: Not Given Documented by: Vitamin D (Cholecalciferol (Vitamin D3) 25 Mcg Tablet) 50 mcg PO DAILY [facility] Last Admin: 10/25/21 08:32 Dose: 50 mcg Documented by: Home Medications Medication Instructions Recorded Confirmed Last Taken Type aspirin 81 mg tablet,delayed 81 mg PO DAILY 10/24/21 10/24/21 10/24/21 History release atorvastatin 10 mg tablet 1 tab PO BEDTIME 10/24/21 10/24/21 10/23/21 History calcitriol 0.25 mcg capsule 0.25 mcg PO Q2D 10/24/21 10/24/21 Unknown History cholecalciferol (vitamin D3) 50 50 mcg PO DAILY 10/24/21 10/24/21 10/24/21 History mcg (2,000 unit) tablet (Vitamin D3) cyanocobalamin (vitamin B-12) 1,500 mcg PO DAILY 10/24/21 10/24/21 10/24/21 History 1,500 mcg tablet,extended release ferrous sulfate 324 mg (65 mg 648 mg PO DAILY 10/24/21 10/24/21 10/24/21 History iron) tablet,delayed release hydralazine 10 mg tablet 1 tab PO TID 10/24/21 10/24/21 10/24/21 History metoprolol tartrate 25 mg tablet 1 tab PO BID 10/24/21 10/24/21 10/24/21 History oxycodone 20 mg tablet 1 tab PO BID PRN 10/24/21 10/24/21 10/24/21 History Physical Exam Vital Signs: Vital Signs: Last Vital Signs Temp 98.6 F 10/25/21 12:14 Pulse 63 10/25/21 12:14 Resp 18 10/25/21 12:14 BP 176/55 H 10/25/21 12:14 Pulse Ox 99 10/25/21 12:14 BMI result Body Mass Index 20.5 Const: Other: Looks comfortable General: comfortable and no acute distress Orientation/consciousness: patient oriented x3 Neck: Neck: Yes no lymphadenopathy Resp: Auscultation: clear to auscultation bilaterally Cardio: Rhythm: regular rhythm GI: Inspection: No distended Palpation (GI): Soft to palpation, nontender, no guarding and not rigid Neuro: General: patient oriented x3 Results Labs Result diagrams: 10/28/21 05:49 10/28/21 05:49 Labs: Abnormal lab results 10/24/21 10/24/21 10/24/21 Range/Units 14:45 14:45 14:45 WBC 16.2 H (4.8-10.8) X10*3/uL RBC 4.40 L (4.60-5.80) X10*6/uL Hgb 12.9 L (14.0-18.0) g/dl Hct 41.2 L (42.0-52.0) % Immature Gran % (Auto) 0.6 H (0.0-0.4) % Neut % (Auto) 81.5 H (45-73) % Lymph % (Auto) 11.1 L (20-40) % Ray % (Auto) (2-11) % Ray # (Auto) (0.1-1.2) X10*3/uL Abs Immat Gran (auto) 0.09 H (0.00-0.03) X10*3/uL Absolute Neuts (auto) 13.2 H (2.0-8.3) x10*3/uL Potassium 5.7 H (3.3-5.1) mmol/L Chloride (96-108) mmol/L Carbon Dioxide (22-29) mmol/L BUN 53 H (9-16) mg/dL Creatinine 2.93 H (0.5-1.4) mg/dL Random Glucose 139 H (60-115) mg/dL Lactic Acid (0.5-2.0) mmol/L Calcium 10.5 H (8.4-10.2) mg/dL B-Natriuretic Peptide 634 H (<100) pg/mL Urine Protein (NEG-TRACE) MG/DL Urine Glucose (UA) (NEG) MG/DL Urine Blood (NEG) Urine Nitrite (NEG) Ur Leukocyte Esterase (NEG) Urine WBC (0-4) /HPF 10/24/21 10/24/21 10/25/21 Range/Units 17:56 18:42 06:27 WBC 19.7 H (4.8-10.8) X10*3/uL RBC 4.22 L (4.60-5.80) X10*6/uL Hgb 12.5 L (14.0-18.0) g/dl Hct 39.4 L (42.0-52.0) % Immature Gran % (Auto) (0.0-0.4) % Neut % (Auto) 74.9 H (45-73) % Lymph % (Auto) 12.2 L (20-40) % Ray % (Auto) 12.1 H (2-11) % Ray # (Auto) 2.4 H (0.1-1.2) X10*3/uL Abs Immat Gran (auto) 0.08 H (0.00-0.03) X10*3/uL Absolute Neuts (auto) 14.7 H (2.0-8.3) x10*3/uL Potassium (3.3-5.1) mmol/L Chloride (96-108) mmol/L Carbon Dioxide 21 L (22-29) mmol/L BUN 53 H (9-16) mg/dL Creatinine 2.75 H (0.5-1.4) mg/dL Random Glucose (60-115) mg/dL Lactic Acid (0.5-2.0) mmol/L Calcium (8.4-10.2) mg/dL B-Natriuretic Peptide (<100) pg/mL Urine Protein 2+ H (NEG-TRACE) MG/DL Urine Glucose (UA) 100 H (NEG) MG/DL Urine Blood 1+ H (NEG) Urine Nitrite POS H (NEG) Ur Leukocyte Esterase 3+ H (NEG) Urine WBC TNTC H (0-4) /HPF 10/25/21 10/25/21 Range/Units 06:27 08:29 WBC (4.8-10.8) X10*3/uL RBC (4.60-5.80) X10*6/uL Hgb (14.0-18.0) g/dl Hct (42.0-52.0) % Immature Gran % (Auto) (0.0-0.4) % Neut % (Auto) (45-73) % Lymph % (Auto) (20-40) % Ray % (Auto) (2-11) % Ray # (Auto) (0.1-1.2) X10*3/uL Abs Immat Gran (auto) (0.00-0.03) X10*3/uL Absolute Neuts (auto) (2.0-8.3) x10*3/uL Potassium 3.2 L D (3.3-5.1) mmol/L Chloride 112 H (96-108) mmol/L Carbon Dioxide 19 L (22-29) mmol/L BUN 51 H (9-16) mg/dL Creatinine 2.69 H (0.5-1.4) mg/dL Random Glucose (60-115) mg/dL Lactic Acid 2.6 H* (0.5-2.0) mmol/L Calcium (8.4-10.2) mg/dL B-Natriuretic Peptide (<100) pg/mL Urine Protein (NEG-TRACE) MG/DL Urine Glucose (UA) (NEG) MG/DL Urine Blood (NEG) Urine Nitrite (NEG) Ur Leukocyte Esterase (NEG) Urine WBC (0-4) /HPF Short CBC 10/24/21 10/25/21 Range/Units 14:45 06:27 WBC 16.2 H 19.7 H (4.8-10.8) X10*3/uL Hgb 12.9 L 12.5 L (14.0-18.0) g/dl Hct 41.2 L 39.4 L (42.0-52.0) % Plt Count 266 228 (160-400) X10*3/uL BMP 10/24/21 10/24/21 10/25/21 14:45 17:56 06:27 Sodium 140 141 143 Potassium 5.7 H 4.3 D 3.2 L D Chloride 106 107 112 H Carbon Dioxide 23 21 L 19 L BUN 53 H 53 H 51 H Creatinine 2.93 H 2.75 H 2.69 H Calcium 10.5 H 10.1 8.7 D Liver Function 10/24/21 Range/Units 14:45 Total Bilirubin 0.5 (0.0-1.0) mg/dL Direct Bilirubin 0.2 (0.0-0.5) mg/dL AST 20 (5-37) U/L ALT 17 (0-40) U/L Alkaline Phosphatase 74 (39-117) U/L Albumin 4.4 (3.5-5.0) g/dL Urine 10/24/21 Range/Units 18:42 Urine Color YELLOW Urine Appearance CLOUDY Urine pH 6.0 (5.0-8.0) Ur Specific [place] 1.020 (1.005-1.025) Urine Protein 2+ H (NEG-TRACE) MG/DL Urine Glucose (UA) 100 H (NEG) MG/DL All other labs normal. Assessment and Plan (1) Abnormal CT of the abdomen: Status: Acute He had a CAT scan showing some portal venous gas. This is often associated with ischemic bowel but his exam is very benign. He does not have any pain or tenderness at this time. He does not have any distention or any abdominal complaints except for diarrhea. There is note of what appears to be as short segment of enteritis in the small bowel. The portal venous gas may be related this as the etiology. In view of his very benign exam, it is unlikely that he has significant ischemia of his GI tract. He does have a significant UTI which may explain his leukocytosis. This currently being treated with antibiotics. I urology consult had also been requested by the hospitalist service. I will follow along closely while he is in the hospital. He should keep the kept on clear liquids only for now. Procedures Date of Service Date of Service: 11/22/21
[2021-10-25 12:48] LABS: CDiff Gene PCR POSITIVE (Negative)
--- NOTE | 2021-10-25 14:00 | HO.PM.IMPN ---
Subjective Subjective Date of Service: 10/25/21 Interval History: karla , uti, enteritis Review of Systems still has diarrahe , left upper abd discomfort denies any chest pain or sob or fever or chills or cough Physical Exam Vital Signs: Vital Signs: Last Vital Signs Temp 98.6 F 10/25/21 12:14 Pulse 63 10/25/21 12:14 Resp 18 10/25/21 12:14 BP 176/55 H 10/25/21 12:14 Pulse Ox 99 10/25/21 12:14 BMI result Body Mass Index 20.5 Appearance: Alert.? Oriented X3.? Eyes: Pupils equal, round and reactive to light.? Sclera nonicteric.? ENT: Pharynx normal.? Moist mucous membranes. cvs: rrr, [id number] , no murmur res: clear to auscultation ,no rhonchii or wheezing abd: no rebound or guarding ,left upper abd pain , bs present. ext pulses present , no cyanosis . neuro: axo3 , nonfocal. Objective Data Active Medications Acetaminophen (Acetaminophen 325 Mg Tablet) 650 mg PO Q6H PRN PRN Reason: Pain, Mild (Pain Scale 1-3) Aspirin (Aspirin Enteric Coated 81 Mg Tablet.) 81 mg PO DAILY [facility] Last Admin: 10/25/21 08:32 Dose: 81 mg Documented by: KAL Atorvastatin Calcium (Atorvastatin Calcium 10 Mg Tablet) 10 mg PO BEDTIME [facility] Calcitriol (Calcitriol 0.25 Mcg Capsule) 0.25 mcg PO Q2D [facility] Cyanocobalamin (Cyanocobalamin (Vitamin B-12) 500 Mcg Tablet) 1,500 mcg PO DAILY [facility] Last Admin: 10/25/21 08:31 Dose: 1,500 mcg Documented by: KAL Docusate Sodium (Docusate Sodium 100 Mg Capsule) 100 mg PO DAILY PRN PRN Reason: Constipation Enoxaparin Sodium (Enoxaparin Sodium 40 Mg/0.4 Ml Syringe) 40 mg SUBCUT Q24H [facility] Last Admin: 10/24/21 23:15 Dose: 40 mg Documented by: THANIA Ferrous Sulfate (Ferrous Sulfate 324 Mg Tablet.) 324 mg PO BID [facility] Last Admin: 10/25/21 08:32 Dose: 324 mg Documented by: KAL Hydralazine HCl (Hydralazine Hcl 10 Mg Tablet) 10 mg PO TID [facility]; Protocol Last Admin: 10/25/21 08:32 Dose: 10 mg Documented by: KAL Lactated Ringer's (Lr) 1,000 mls @ 125 mls/hr IVCONT .Q8H [facility] Last Infusion: 10/25/21 10:05 Dose: 125 mls/hr Documented by: KAL Ceftriaxone Sodium 1 gm/ (Sodium Chloride) 50 mls @ 100 mls/hr IV Q24H [facility] Last Admin: 10/24/21 23:15 Dose: 100 mls/hr Documented by: THANIA Metoprolol Tartrate (Metoprolol Tartrate 25 Mg Tablet) 25 mg PO BID [facility]; Protocol Last Admin: 10/25/21 08:31 Dose: 25 mg Documented by: KAL Metronidazole (Metronidazole 500 Mg Tablet) 500 mg PO Q8H [facility] Last Admin: 10/25/21 07:32 Dose: 500 mg Documented by: KAL Ondansetron HCl (Ondansetron Hcl 4 Mg/2 Ml Vial) 4 mg IVPUSH Q8H PRN PRN Reason: Nausea and Vomiting Oxycodone HCl (Oxycodone Hcl Immed Release 5 Mg Tablet) 20 mg PO BID PRN PRN Reason: Pain, Moderate (Pain Scale 4-6 Pharmacy Consult (Consult Rx Perform Med Rec) 1 each MISCELLANE ONCE PRN PRN Reason: Consult order Pharmacy Consult (Consult Rx Perform Med Rec) 1 each MISCELLANE ONCE PRN PRN Reason: Consult order Sodium Chloride (0.9 % Sodium Chloride Flush 3 Ml Syringe) 3 ml IVFLUSH QSHIFT [facility] Last Admin: 10/25/21 08:33 Dose: Not Given Documented by: KAL Non-Admin Reason: IV Running Vitamin D (Cholecalciferol (Vitamin D3) 25 Mcg Tablet) 50 mcg PO DAILY [facility] Last Admin: 10/25/21 08:32 Dose: 50 mcg Documented by: KAL Labs CBC & Chem 7: 10/25/21 06:27 10/25/21 06:27 Labs: Laboratory Results - last 24 hr 10/24/21 10/24/21 10/24/21 14:45 14:45 14:45 MCV 93.6 MCH 29.3 MCHC 31.3 RDW 14.3 Plt Count 266 MPV 9.8 Immature Gran % (Auto) 0.6 H Neut % (Auto) 81.5 H Lymph % (Auto) 11.1 L [place] % (Auto) 5.8 Eos % (Auto) 0.6 Baso % (Auto) 0.4 Lymph # (Auto) 1.8 [place] # (Auto) 0.9 Eos # (Auto) 0.1 Baso # (Auto) 0.1 Abs Immat Gran (auto) 0.09 H Absolute Neuts (auto) 13.2 H Absolute Nucleated RBC 0.000 Nucleated RBC % (auto) 0.0 Smear Tech's Comments Anion Gap 17 Estim Creat Clear Calc 16.5 Estimated GFR 21 Random Glucose 139 H Lactic Acid Calcium 10.5 H Magnesium 2.1 Total Bilirubin 0.5 Direct Bilirubin 0.2 AST 20 ALT 17 Alkaline Phosphatase 74 B-Natriuretic Peptide 634 H Total Protein 7.9 Albumin 4.4 Lipase 35 Urine Color Urine Appearance Urine pH Ur Specific [place] Urine Protein Urine Glucose (UA) Urine Ketones Urine Blood Urine Nitrite Ur Leukocyte Esterase Urine RBC Urine WBC Urine WBC Clumps Ur Squamous Epith Cells Ur Renal Epithelial Cell Urine Bacteria Urine Mucus Stool Leukocytes, Qual C. difficile Tox B Gene COVID-19 (KARINA) [email or web address] 10/24/21 10/24/21 10/24/21 17:56 17:56 17:56 MCV MCH MCHC RDW Plt Count MPV Immature Gran % (Auto) Neut % (Auto) Lymph % (Auto) [place] % (Auto) Eos % (Auto) Baso % (Auto) Lymph # (Auto) [place] # (Auto) Eos # (Auto) Baso # (Auto) Abs Immat Gran (auto) Absolute Neuts (auto) Absolute Nucleated RBC Nucleated RBC % (auto) Smear Tech's Comments Anion Gap 17 Estim Creat Clear Calc 17.6 Estimated GFR 22 Random Glucose 114 Lactic Acid 1.1 Calcium 10.1 Magnesium Total Bilirubin Direct Bilirubin AST ALT Alkaline Phosphatase B-Natriuretic Peptide Total Protein Albumin Lipase Urine Color Urine Appearance Urine pH Ur Specific [place] Urine Protein Urine Glucose (UA) Urine Ketones Urine Blood Urine Nitrite Ur Leukocyte Esterase Urine RBC Urine WBC Urine WBC Clumps Ur Squamous Epith Cells Ur Renal Epithelial Cell Urine Bacteria Urine Mucus Stool Leukocytes, Qual C. difficile Tox B Gene COVID-19 (KARINA) Negative COVIDCignifi Com See Note 10/24/21 10/25/21 10/25/21 18:42 06:27 06:27 MCV 93.4 MCH 29.6 MCHC 31.7 RDW 14.4 Plt Count 228 MPV 10.2 Immature Gran % (Auto) 0.4 Neut % (Auto) 74.9 H Lymph % (Auto) 12.2 L [place] % (Auto) 12.1 H Eos % (Auto) 0.1 Baso % (Auto) 0.3 Lymph # (Auto) 2.4 [place] # (Auto) 2.4 H Eos # (Auto) 0.0 Baso # (Auto) 0.1 Abs Immat Gran (auto) 0.08 H Absolute Neuts (auto) 14.7 H Absolute Nucleated RBC 0.000 Nucleated RBC % (auto) 0.0 Smear Tech's Comments VERIFIED Anion Gap 16 Estim Creat Clear Calc 18.0 Estimated GFR 23 Random Glucose 101 Lactic Acid Calcium 8.7 D Magnesium Total Bilirubin Direct Bilirubin AST ALT Alkaline Phosphatase B-Natriuretic Peptide Total Protein Albumin Lipase Urine Color YELLOW Urine Appearance CLOUDY Urine pH 6.0 Ur Specific [place] 1.020 Urine Protein 2+ H Urine Glucose (UA) 100 H Urine Ketones NEG Urine Blood 1+ H Urine Nitrite POS H Ur Leukocyte Esterase 3+ H Urine RBC 1-4 Urine WBC TNTC H Urine WBC Clumps NOTED Ur Squamous Epith Cells TRACE Ur Renal Epithelial Cell 1+ Urine Bacteria TRACE Urine Mucus 3+ Stool Leukocytes, Qual C. difficile Tox B Gene COVID-19 (KARINA) COVID-19 Clin Com 10/25/21 10/25/21 10/25/21 08:29 10:50 10:50 MCV MCH MCHC RDW Plt Count MPV Immature Gran % (Auto) Neut % (Auto) Lymph % (Auto) [place] % (Auto) Eos % (Auto) Baso % (Auto) Lymph # (Auto) [place] # (Auto) Eos # (Auto) Baso # (Auto) Abs Immat Gran (auto) Absolute Neuts (auto) Absolute Nucleated RBC Nucleated RBC % (auto) Smear Tech's Comments Anion Gap Estim Creat Clear Calc Estimated GFR Random Glucose Lactic Acid 2.6 H* Calcium Magnesium Total Bilirubin Direct Bilirubin AST ALT Alkaline Phosphatase B-Natriuretic Peptide Total Protein Albumin Lipase Urine Color Urine Appearance Urine pH Ur Specific [place] Urine Protein Urine Glucose (UA) Urine Ketones Urine Blood Urine Nitrite Ur Leukocyte Esterase Urine RBC Urine WBC Urine WBC Clumps Ur Squamous Epith Cells Ur Renal Epithelial Cell Urine Bacteria Urine Mucus Stool Leukocytes, Qual FEW: < 2/OIF C. difficile Tox B Gene POSITIVE A* COVID-19 (KARINA) COVID-19 Clin Com Microbiology Microbiology Results: Microbiology 10/24/21 Unknown Urine Culture - Preliminary Urine clean catch - Urine pacheco top Gram negative eloise Assessment and Plan (1) Abnormal CT of the abdomen: Status: Acute (2) UTI (urinary tract infection): Status: Acute (3) Urinary retention: Status: Acute (4) Enteritis: Status: Acute Plan 85-year-old male with past medical history of CVA, COPD, BPH presents the hospital with abdominal pain as well as chest pain.? Found to have urinary retention, UTI, as well as enteritis 1.? abdominal pain:-? acute abdominal pain secondary to enteritis( see ct abd). abd ct -? portal edis gas -seen by surgery: Patient abdomen is benign, portal gas thought to be secondary to possibly enteritis. clear liquid diet, stool studies , continue IV antibiotics, as well as p.o. Flagyl 2.possible sepsis sec UTI/enteritis -? has leukocytosis, positive UA lactic acidsois resolved -? complicated by urinary retention -? will treat with IV antibiotic -? follow cultures 3.chest pain-? troponin negative x2 -? EKG reviewed by seismographer shows sinus rhythm with PACs, no evidence of AFib possible noncardiac, cardiology saw the patient thought to be noncardiac chest pain. Possible GI related pain. Echo pending. 4.? KARLA on CKD-? no previous creatinine for comparison but has elevated BUN and creatinine with improvement after fluid resuscitation Worsening of renal failure possibly out related to bladder obstruction and distended-please see CT abdomen. KARLA possibly related to obstruction rather than sepsis. -? will continue fluids -? follow BMP Patient may need Taveras, avoid nephrotoxic medications, urology consult. 5.? urinary retention -? most likely multifactorial secondary to BPH, UTI, as well as abnormality seen on abdominal CT -? patient currently has Taveras catheter in, will continue -? urology consult 6.? COPD - ? not in exacerbation -? continue home inhalers 7.? history of CVA -? no new changes -? continue aspirin and statin 8.? hypertension -? stable -? continue home medications DVT ppx: lovenox Quality Stroke Does the patient have a stroke diagnosis?: No VTE Prior VTE?: No VTE Risk Level:: Medical - moderate - high VTE Device Contraindication: Treatment Not Indicated VTE Drug Contraindication: N/A - Med Ordered
[2021-10-25 14:27] LABS: ~Lactic Acid-LAB USE ONLY 1.1 mmol/L (0.5-2.0)
[2021-10-25 14:33] LABS: CDIFF Internal ctrl Dots and bkg OK (V); CDiff Toxin Negative (Negative)
[2021-10-25] MEDS: Lactated Ringers 1,000 ML 125 ML IVCONT (15:59)
[2021-10-25 16:01] VITALS: BP 174/68; PULSE 67; RESP 16; TEMP 36.7; O2SAT 99
--- NOTE | 2021-10-25 17:56 | PM.EVENT ---
Event Note Date of Service: 10/25/21 Event Note: seen on ffup abd remains benign, nontender he denies abdominal pain continues to have diarrhea stools positive for C diff treat C diff infection in view of continued benign abdominal exam findings, no surgical intervention planned at this time pt has DNR/DNI in effect
--- NOTE | 2021-10-25 17:56 | PM.UROCN ---
History of Present Illness Consult details Consult date: 10/25/21 Narrative: Adam is a pleasant 85-year-old male Admitted to hospital with chest pain and abdominal pain Found to have urinary tract infection Bladder with urinary retention over 600 cc Acute on chronic renal insufficiency Elevated white count Taveras catheter placed Imaging shows severe trabeculation of bladder describes frequent, small volume voiding prior to admission Recommendation for catheter to remain for 5 days with voiding trial switch tamsulosin to doxazosin 8 mg p.o. q.h.s. and add finasteride 5 mg Review of Systems Constitutional: Constitutional: Reports as per HPI and Reports no additional constitutional complaints Cardiovascular: Cardiovascular: Reports as per HPI and Reports no additional cardiovascular complaints Respiratory: Respiratory: Reports as per HPI and Reports no additional respiratory complaints Gastrointestinal: Gastrointestinal: Reports as per HPI and Reports no additional gastrointestinal complaints Genitourinary: Genitourinary: Reports as per HPI Musculoskeletal: Musculoskeletal: Reports no additional musculoskeletal complaints and Reports as per HPI Neurologic: Reports system reviewed and no additional complaints, except as documented and Reports as per HPI [facility] Past Medical History Medical History (Updated 10/25/21 @ 17:59 by Paulie Maciel MD) Abnormal CT of the abdomen BPH (benign prostatic hyperplasia) CKD (chronic kidney disease) COPD (chronic obstructive pulmonary disease) CVA (cerebral vascular accident) Hypertension Family History Family History Mother CHF (congestive heart failure) Surgical History Surgical History H/O aortic valve replacement with porcine valve S/P AVR (aortic valve replacement) Social History Social History Alcohol intake: never Tobacco use type: Cigarette Cigarette Packs Per Day: 1 Advance Directives: Yes Advance Directives Information Provided: No Advance Directives on File: Yes Advance Directives Date on File: 10/25/21 Meds Allergies Allergy/AdvReac Type Severity Reaction Status Date / Time No Known Allergies Allergy Verified 10/24/21 14:24 [No Known Allergies*] Active Medications: Current Medications Acetaminophen (Acetaminophen 325 Mg Tablet) 650 mg PO Q6H PRN PRN Reason: Pain, Mild (Pain Scale 1-3) Aspirin (Aspirin Enteric Coated 81 Mg Tablet.Dr) 81 mg PO DAILY [facility] Last Admin: 10/25/21 08:32 Dose: 81 mg Documented by: Atorvastatin Calcium (Atorvastatin Calcium 10 Mg Tablet) 10 mg PO BEDTIME [facility] Calcitriol (Calcitriol 0.25 Mcg Capsule) 0.25 mcg PO Q2D [facility] Cyanocobalamin (Cyanocobalamin (Vitamin B-12) 500 Mcg Tablet) 1,500 mcg PO DAILY [facility] Last Admin: 10/25/21 08:31 Dose: 1,500 mcg Documented by: Docusate Sodium (Docusate Sodium 100 Mg Capsule) 100 mg PO DAILY PRN PRN Reason: Constipation Enoxaparin Sodium (Enoxaparin Sodium 40 Mg/0.4 Ml Syringe) 40 mg SUBCUT Q24H [facility] Last Admin: 10/24/21 23:15 Dose: 40 mg Documented by: Ferrous Sulfate (Ferrous Sulfate 324 Mg Tablet.Dr) 324 mg PO BID [facility] Last Admin: 10/25/21 08:32 Dose: 324 mg Documented by: Hydralazine HCl (Hydralazine Hcl 10 Mg Tablet) 10 mg PO TID [facility]; Protocol Last Admin: 10/25/21 16:28 Dose: 10 mg Documented by: Lactated Ringer's (Lr) 1,000 mls @ 100 mls/hr IVCONT .Q10H [facility] Last Admin: 10/25/21 15:59 Dose: 125 mls/hr Documented by: Ceftriaxone Sodium 1 gm/ (Sodium Chloride) 50 mls @ 100 mls/hr IV Q24H [facility] Last Infusion: 10/25/21 16:10 Dose: Infused Documented by: Metoprolol Tartrate (Metoprolol Tartrate 50 Mg Tablet) 50 mg PO BID [facility]; Protocol Metronidazole (Metronidazole 500 Mg Tablet) 500 mg PO Q8H [facility] Last Admin: 10/25/21 16:28 Dose: 500 mg Documented by: Ondansetron HCl (Ondansetron Hcl 4 Mg/2 Ml Vial) 4 mg IVPUSH Q8H PRN PRN Reason: Nausea and Vomiting Oxycodone HCl (Oxycodone Hcl Immed Release 5 Mg Tablet) 20 mg PO BID PRN PRN Reason: Pain, Moderate (Pain Scale 4-6 Pharmacy Consult (Consult Rx Perform Med Rec) 1 each MISCELLANE ONCE PRN PRN Reason: Consult order Pharmacy Consult (Consult Rx Perform Med Rec) 1 each MISCELLANE ONCE PRN PRN Reason: Consult order Sodium Chloride (0.9 % Sodium Chloride Flush 3 Ml Syringe) 3 ml IVFLUSH QSHIFT [facility] Last Admin: 10/25/21 16:10 Dose: Not Given Documented by: Vitamin D (Cholecalciferol (Vitamin D3) 25 Mcg Tablet) 50 mcg PO DAILY [facility] Last Admin: 10/25/21 08:32 Dose: 50 mcg Documented by: Home Medications Medication Instructions Recorded Confirmed Last Taken Type aspirin 81 mg tablet,delayed 81 mg PO DAILY 10/24/21 10/24/21 10/24/21 History release atorvastatin 10 mg tablet 1 tab PO BEDTIME 10/24/21 10/24/21 10/23/21 History calcitriol 0.25 mcg capsule 0.25 mcg PO Q2D 10/24/21 10/24/21 Unknown History cholecalciferol (vitamin D3) 50 50 mcg PO DAILY 10/24/21 10/24/21 10/24/21 History mcg (2,000 unit) tablet (Vitamin D3) cyanocobalamin (vitamin B-12) 1,500 mcg PO DAILY 10/24/21 10/24/21 10/24/21 History 1,500 mcg tablet,extended release ferrous sulfate 324 mg (65 mg 648 mg PO DAILY 10/24/21 10/24/21 10/24/21 History iron) tablet,delayed release hydralazine 10 mg tablet 1 tab PO TID 10/24/21 10/24/21 10/24/21 History metoprolol tartrate 25 mg tablet 1 tab PO BID 10/24/21 10/24/21 10/24/21 History oxycodone 20 mg tablet 1 tab PO BID PRN 10/24/21 10/24/21 10/24/21 History tamsulosin 0.4 mg capsule 1 cap PO DAILY 10/24/21 10/24/21 10/24/21 History Physical Exam Vital Signs: Vital Signs: Last Vital Signs Temp 98.0 F 10/25/21 16:01 Pulse 67 10/25/21 16:01 Resp 16 10/25/21 16:01 BP 174/68 H 10/25/21 16:01 Pulse Ox 99 10/25/21 16:01 BMI result Body Mass Index 20.5 Const: General: cooperative, healthy appearing, comfortable and no acute distress Orientation/consciousness: patient oriented x3 HENMT: Face and sinus: Yes normal facial exam Mouth: moist mucous membranes Neck: Neck: Yes normal visual inspection, Yes full ROM and Yes trachea midline Chest: Chest palpation & inspection: normal inspection of the chest Resp: Effort & Inspection: normal respiratory effort, able to speak in complete sentences and no respiratory distress GI: Inspection: Yes normal to inspection Back/Spine/Pelvis: Cervical Spine: normal cervical lordosis Thoracic/Lumbar Spine: thoracic and lumbar spine normal to inspection Skin: General skin exam: no rashes or lesions noted Neuro: General: patient oriented x3, tone normal and moves all extremities Extrem: General: Yes normal to inspection and Yes capillary refill normal Results Labs Result diagrams: 10/25/21 06:27 10/25/21 06:27 Labs: Abnormal lab results 10/24/21 10/24/21 10/25/21 Range/Units 17:56 18:42 06:27 WBC 19.7 H (4.8-10.8) X10*3/uL RBC 4.22 L (4.60-5.80) X10*6/uL Hgb 12.5 L (14.0-18.0) g/dl Hct 39.4 L (42.0-52.0) % Neut % (Auto) 74.9 H (45-73) % Lymph % (Auto) 12.2 L (20-40) % [place] % (Auto) 12.1 H (2-11) % [place] # (Auto) 2.4 H (0.1-1.2) X10*3/uL Abs Immat Gran (auto) 0.08 H (0.00-0.03) X10*3/uL Absolute Neuts (auto) 14.7 H (2.0-8.3) x10*3/uL Potassium (3.3-5.1) mmol/L Chloride (96-108) mmol/L Carbon Dioxide 21 L (22-29) mmol/L BUN 53 H (9-16) mg/dL Creatinine 2.75 H (0.5-1.4) mg/dL Lactic Acid (0.5-2.0) mmol/L Urine Protein 2+ H (NEG-TRACE) MG/DL Urine Glucose (UA) 100 H (NEG) MG/DL Urine Blood 1+ H (NEG) Urine Nitrite POS H (NEG) Ur Leukocyte Esterase 3+ H (NEG) Urine WBC TNTC H (0-4) /HPF C. difficile Tox B Gene (Negative) 10/25/21 10/25/21 10/25/21 Range/Units 06:27 08:29 10:50 WBC (4.8-10.8) X10*3/uL RBC (4.60-5.80) X10*6/uL Hgb (14.0-18.0) g/dl Hct (42.0-52.0) % Neut % (Auto) (45-73) % Lymph % (Auto) (20-40) % [place] % (Auto) (2-11) % [place] # (Auto) (0.1-1.2) X10*3/uL Abs Immat Gran (auto) (0.00-0.03) X10*3/uL Absolute Neuts (auto) (2.0-8.3) x10*3/uL Potassium 3.2 L D (3.3-5.1) mmol/L Chloride 112 H (96-108) mmol/L Carbon Dioxide 19 L (22-29) mmol/L BUN 51 H (9-16) mg/dL Creatinine 2.69 H (0.5-1.4) mg/dL Lactic Acid 2.6 H* (0.5-2.0) mmol/L Urine Protein (NEG-TRACE) MG/DL Urine Glucose (UA) (NEG) MG/DL Urine Blood (NEG) Urine Nitrite (NEG) Ur Leukocyte Esterase (NEG) Urine WBC (0-4) /HPF C. difficile Tox B Gene POSITIVE A* (Negative) Short CBC 10/25/21 Range/Units 06:27 WBC 19.7 H (4.8-10.8) X10*3/uL Hgb 12.5 L (14.0-18.0) g/dl Hct 39.4 L (42.0-52.0) % Plt Count 228 (160-400) X10*3/uL BMP 10/24/21 10/25/21 17:56 06:27 Sodium 141 143 Potassium 4.3 D 3.2 L D Chloride 107 112 H Carbon Dioxide 21 L 19 L BUN 53 H 51 H Creatinine 2.75 H 2.69 H Calcium 10.1 8.7 D Urine 10/24/21 Range/Units 18:42 Urine Color YELLOW Urine Appearance CLOUDY Urine pH 6.0 (5.0-8.0) Ur Specific [place] 1.020 (1.005-1.025) Urine Protein 2+ H (NEG-TRACE) MG/DL Urine Glucose (UA) 100 H (NEG) MG/DL All other labs normal. Assessment and Plan (1) UTI (urinary tract infection): Status: Acute (2) Urinary retention: Status: Acute (3) BPH (benign prostatic hyperplasia): Status: Acute Plan optimized alpha-deion and finasteride Five day voiding trial Procedures Date of Service Date of Service: 10/25/21
[2021-10-25 18:42] LABS: Magnesium 1.8 mg/dL (1.6-2.6); Potassium 4.4 mmol/L (3.3-5.1)
[2021-10-25] MEDS: Atorvastatin Calcium 10 MG TABLET PO (21:25)
[2021-10-25] MEDS: cefTRIAXone sodium 1 GM in 0.9 % Sodium Chloride 50 ML IV (21:26)
[2021-10-25] MEDS: Metoprolol Tartrate 50 MG TABLET PO (21:26)
[2021-10-25] MEDS: Doxazosin Mesylate 2 MG TABLET 8 MG PO (21:26)
[2021-10-25] MEDS: Enoxaparin Sodium 40 MG/0.4 ML SYRINGE SUBCUT (21:27)
[2021-10-26 00:10] VITALS: BP 152/52; PULSE 63; RESP 22; TEMP 36.7; O2SAT 97
[2021-10-26] MEDS: Lactated Ringers 1,000 ML 125 ML IVCONT (00:57)
--- NOTE | 2021-10-26 03:20 | PC.NURSE ---
Patient alert and oriented x 3. Patient denies any pain. Patient still having liquid stool gets up by himself to commode. New raymond placed patient ripped out raymond split after saline injection port. Patient did not even feel it and their wasn't any trauma. tele: now sinus rhythm but seems to go back and forth between afib and sinus rhythm had 6 & 8 beats of VT and a run of aberrancy, and frequent ventricular ectopy. MD notified lytes drawn Mag-1.8 no intervention. Patient on flagyl po and iv antibiotics for UTI. Will continue to monitor.
--- NOTE | 2021-10-26 06:11 | PC.NURSE ---
TOOK OVER CARE OF THIS PATIENT AT 0400, C DIFF PRECAUTIONS MAINTAINED. NOTED LOOSE LIQUID STOOL TO BEDSIDE COMMODE WITH MIN ASSIST. DOTY CATH WITH YELLOW URINE. PATIENT DENIED PAIN. TELE MONITOR IN USE AND ICU SETUP OPERATOR IS WATCHING AND STATED NSR WITH OCCAS PVC'S. APPROX. 0540 CALL STATED A MOBITZ 1. PT REMAINS PAIN FREE, NO CP, PRESSURE, OFFERS NO COMPLAINTS.
[2021-10-26] MEDS: metroNIDAZOLE 500 MG TABLET PO (07:19)
[2021-10-26 07:43] VITALS: BP 183/58; PULSE 70; RESP 20; O2SAT 97
--- NOTE | 2021-10-26 07:44 | PC.NURSE ---
Addendum entered by Ashly Díaz RN 10/26/21 10:02: Taveras catheter also noted intact and draining Original Note: Pt received from sewage screen operator: Pt AOX2-3 and offers no complaints. Sinus arrythmia noted- Heart block type I. Lungs diminished. Pt abd flat, soft and non-tender. Pt up to bedside commode with 1 person assist. Pt continues to have intermittent diarrhea.
[2021-10-26 08:05] LABS: Anion Gap 14 (12-20); Blood Urea Nitrogen 42 mg/dL (9-16); Calcium 8.5 mg/dL (8.4-10.2); Carbon Dioxide 21 mmol/L (22-29); Chloride 109 mmol/L (96-108); Creatinine Clr Calc Pharmacy 19.4; Estimated Glomerular Filt Rate 25; Glucose Random 144 mg/dL (60-115); Potassium 4.3 mmol/L (3.3-5.1); Sodium 140 mmol/L (135-145)
--- NOTE | 2021-10-26 08:41 | HO.PM.IMPN ---
Subjective Subjective Date of Service: 10/26/21 Interval History: uti/cdiff infection Review of Systems still has diarrae and some left lower abd pain Still nausea Denies any chest pain or shortness of breath or fever chills or cough or phlegm Physical Exam Vital Signs: Vital Signs: Last Vital Signs Temp 98.0 F 10/26/21 00:10 Pulse 70 10/26/21 07:43 Resp 20 10/26/21 07:43 BP 183/58 H 10/26/21 07:43 Pulse Ox 97 10/26/21 07:43 BMI result Body Mass Index 20.5 Appearance: Alert.? Oriented X3.? Eyes: Pupils equal, round and reactive to light.? Sclera nonicteric.? ENT: Pharynx normal.? Moist mucous membranes. cvs: rrr, [id number] , no murmur res: clear to auscultation ,no rhonchii or wheezing abd: no rebound or guarding ,left lower abd pain , bs present. ext pulses present , no cyanosis . neuro: axo3 , nonfocal. Objective Data Active Medications Acetaminophen (Acetaminophen 325 Mg Tablet) 650 mg PO Q6H PRN PRN Reason: Pain, Mild (Pain Scale 1-3) Aspirin (Aspirin Enteric Coated 81 Mg Tablet.) 81 mg PO DAILY [facility] Last Admin: 10/25/21 08:32 Dose: 81 mg Documented by: KAL Atorvastatin Calcium (Atorvastatin Calcium 10 Mg Tablet) 10 mg PO BEDTIME [facility] Last Admin: 10/25/21 21:25 Dose: 10 mg Documented by: THANIA Calcitriol (Calcitriol 0.25 Mcg Capsule) 0.25 mcg PO Q2D [facility] Cyanocobalamin (Cyanocobalamin (Vitamin B-12) 500 Mcg Tablet) 1,500 mcg PO DAILY [facility] Last Admin: 10/25/21 08:31 Dose: 1,500 mcg Documented by: KAL Docusate Sodium (Docusate Sodium 100 Mg Capsule) 100 mg PO DAILY PRN PRN Reason: Constipation Doxazosin Mesylate (Doxazosin Mesylate 2 Mg Tablet) 8 mg PO BEDTIME [facility]; Protocol Last Admin: 10/25/21 21:26 Dose: 8 mg Documented by: THANIA Enoxaparin Sodium (Enoxaparin Sodium 40 Mg/0.4 Ml Syringe) 40 mg SUBCUT Q24H [facility] Last Admin: 10/25/21 21:27 Dose: 40 mg Documented by: THANIA Ferrous Sulfate (Ferrous Sulfate 324 Mg Tablet.Dr) 324 mg PO BID [facility] Last Admin: 10/25/21 21:26 Dose: 324 mg Documented by: THANIA Finasteride (Finasteride 5 Mg Tablet) 5 mg PO DAILY [facility] Hydralazine HCl (Hydralazine Hcl 10 Mg Tablet) 10 mg PO TID [facility]; Protocol Last Admin: 10/25/21 21:25 Dose: 10 mg Documented by: THANIA Metoprolol Tartrate (Metoprolol Tartrate 50 Mg Tablet) 50 mg PO BID [facility]; Protocol Last Admin: 10/25/21 21:26 Dose: 50 mg Documented by: THANIA Metronidazole (Metronidazole 500 Mg Tablet) 500 mg PO Q8H [facility] Last Admin: 10/26/21 07:19 Dose: 500 mg Documented by: JENNA Ondansetron HCl (Ondansetron Hcl 4 Mg/2 Ml Vial) 4 mg IVPUSH Q8H PRN PRN Reason: Nausea and Vomiting Oxycodone HCl (Oxycodone Hcl Immed Release 5 Mg Tablet) 20 mg PO BID PRN PRN Reason: Pain, Moderate (Pain Scale 4-6 Pharmacy Consult (Consult Rx Perform Med Rec) 1 each MISCELLANE ONCE PRN PRN Reason: Consult order Pharmacy Consult (Consult Rx Perform Med Rec) 1 each MISCELLANE ONCE PRN PRN Reason: Consult order Sodium Chloride (0.9 % Sodium Chloride Flush 3 Ml Syringe) [facility] Last Admin: 10/26/21 07:25 Dose: Not Given Documented by: DAYNA Non-Admin Reason: Med Not Available Vancomycin HCl (Vancomycin Hcl 125 Mg Capsule) 125 mg PO Q6H [facility] Vitamin D (Cholecalciferol (Vitamin D3) 25 Mcg Tablet) 50 mcg PO DAILY [facility] Last Admin: 10/25/21 08:32 Dose: 50 mcg Documented by: KAL Labs CBC & Chem 7: 10/25/21 06:27 10/26/21 07:30 Labs: Laboratory Results - last 24 hr 10/24/21 10/24/21 10/25/21 14:45 17:56 06:27 Anion Gap Creatinine 2.93 H 2.75 H 2.69 H Estim Creat Clear Calc Estimated GFR Random Glucose Lactic Acid Lactic Acid F/U @ 2Hr Calcium Magnesium Stool Leukocytes, Qual C. difficile Tox B Gene C. difficile Toxin A&B C. difficile Interpret 10/25/21 10/25/21 10/25/21 08:29 10:50 10:50 Anion Gap Creatinine Estim Creat Clear Calc Estimated GFR Random Glucose Lactic Acid 2.6 H* Lactic Acid F/U @ 2Hr Calcium Magnesium Stool Leukocytes, Qual FEW: < 2/OIF C. difficile Tox B Gene POSITIVE A* C. difficile Toxin A&B Negative C. difficile Interpret SEE NOTE 10/25/21 10/25/21 10/26/21 13:59 18:00 07:30 Anion Gap 14 Creatinine 2.49 H Estim Creat Clear Calc 19.4 Estimated GFR 25 Random Glucose 144 H D Lactic Acid Lactic Acid F/U @ 2Hr 1.1 Calcium 8.5 Magnesium 1.8 Stool Leukocytes, Qual C. difficile Tox B Gene C. difficile Toxin A&B C. difficile Interpret Microbiology Microbiology Results: Microbiology 10/25/21 10:50 Stool Culture - Preliminary Stool Normal so far. 10/24/21 Unknown Urine Culture - Final Urine clean catch - Urine pacheco top Morganella morganii [facility] [place] 10/24/21 17:56 Blood Culture - Preliminary Blood - Venous No growth after 24 hours. 10/24/21 17:56 Blood Culture - Preliminary Blood - Venous No growth after 24 hours. Assessment and Plan (1) Abnormal CT of the abdomen: Status: Acute (2) UTI (urinary tract infection): Status: Acute (3) Urinary retention: Status: Acute (4) Enteritis: Status: Acute Plan 85-year-old male with past medical history of CVA, COPD, BPH presents the hospital with abdominal pain as well as chest pain.? Found to have urinary retention, UTI, as well as enteritis 1.? abdominal pain:-? acute abdominal pain secondary to enteritis( see ct abd). abd ct -? portal edis gas -seen by surgery: Patient abdomen is benign, portal gas thought to be secondary to possibly enteritis. clear liquid diet, stool studies -? c diff continue po vanco as well as p.o. Flagyl 2.possible sepsis sec UTI/enteritis -? has leukocytosis, positive UA lactic acidsois resolved -? complicated by urinary retention -? will treat with IV antibiotic -? follow cultures 3.chest pain-? troponin negative x2 -? EKG reviewed by medical assisting program director shows sinus rhythm with PACs, no evidence of AFib possible noncardiac, cardiology saw the patient thought to be noncardiac chest pain. Possible GI related pain. Echo pending. 4.? KARLA on CKD-? no previous creatinine for comparison but has elevated BUN and creatinine with improvement after fluid resuscitation Worsening of renal failure possibly out related to bladder obstruction and distended-please see CT abdomen. KARLA possibly related to obstruction rather than sepsis. -? will continue fluids -? follow BMP Patient may need Taveras, avoid nephrotoxic medications, urology consult. 5.? urinary retention -? most likely multifactorial secondary to BPH, UTI, as well as abnormality seen on abdominal CT -? patient currently has Taveras catheter in, will continue -? urology consult 6.? COPD - ? not in exacerbation -? continue home inhalers 7.? history of CVA -? no new changes -? continue aspirin and statin 8.? hypertension -? stable -? continue home medications DVT ppx: lovenox Quality Stroke Does the patient have a stroke diagnosis?: No VTE Prior VTE?: No VTE Risk Level:: Medical - moderate - high VTE Device Contraindication: Treatment Not Indicated VTE Drug Contraindication: N/A - Med Ordered
[2021-10-26] MEDS: Magnesium Sulfate/D5W 1 GM/100 ML PIGGYBACK IV (09:42)
[2021-10-26] MEDS: Ferrous Sulfate 324 MG TABLET.DR PO ×2 (09:42→20:04)
[2021-10-26] MEDS: Cholecalciferol (Vitamin D3) 25 MCG TABLET 50 MCG PO (09:42)
[2021-10-26] MEDS: Cyanocobalamin (Vitamin B-12) 500 MCG TABLET 1500 MCG PO (09:42)
[2021-10-26] MEDS: calcitrioL 0.25 MCG CAPSULE PO (09:42)
[2021-10-26] MEDS: Aspirin Enteric Coated 81 MG TABLET.DR PO (09:42)
[2021-10-26] MEDS: Finasteride 5 MG TABLET PO (09:42)
[2021-10-26] MEDS: hydrALAZINE HCl 10 MG TABLET PO ×3 (09:43→20:04)
[2021-10-26] MEDS: Metoprolol Tartrate 50 MG TABLET PO ×2 (09:43→20:04)
[2021-10-26] MEDS: vancomycin HCL 125 MG CAPSULE PO ×3 (09:43→20:04)
--- NOTE | 2021-10-26 10:25 | HE.PHANOTE ---
Lovenox dose decrease to 30 mg due to poor renal function. Patient SCr is 19.4. Approved by Dr. Anibal Weston, PharmD
[2021-10-26 10:27] VITALS: PULSE 70; O2SAT 97
[2021-10-26 10:52] VITALS: BP 157/59; PULSE 51; RESP 17; O2SAT 98
[2021-10-26] MEDS: Enoxaparin Sodium 30 MG/0.3 ML SYRINGE SUBCUT (11:33)
--- NOTE | 2021-10-26 12:22 | P.PNCA_ITS ---
Subjective Subjective Date of Service: 10/26/21 Interval history: No cardiac complaints. Review of Systems Review of Systems Yes all other systems are reviewed and are negative Cardiovascular: Reports as per HPI, Reports no additional cardiovascular complaints, Denies acrocyanosis, Denies cool extremities, Reports chest pain, Denies diaphoresis, Denies syncope, Denies claudication, Denies leg edema, Denies lightheadedness, Denies palpitations and Denies dyspnea Respiratory: Denies dyspnea Denies syncope Endocrine: Denies palpitations Physical Exam Vital Signs: Last Vital Signs Temp 98.0 F 10/26/21 00:10 Pulse 51 10/26/21 10:52 Resp 17 10/26/21 10:52 BP 157/59 H 10/26/21 10:52 Pulse Ox 98 10/26/21 10:52 BMI result Body Mass Index 20.5 Const General: comfortable HENMT Other: Unremarkable Neck Neck: Yes normal visual inspection Chest Chest palpation & inspection: normal inspection of the chest Resp Auscultation: clear to auscultation bilaterally Cardio Palpation: normal PMI Heart sounds: S1 normal heart sound present, S2 normal heart sound present, no gallops, Murmur heart sound present (2/6 YANG aortic area) and no rubs GI Palpation (GI): Soft to palpation Back/Spine/Pelvis Other: unremarkable Skin Lesions: other Neuro General: other Extrem General: Yes other Psych Mental Status: other Objective Labs and Meds Result diagrams: 10/25/21 06:27 10/26/21 07:30 Lab results: Laboratory Results - last 24 hr 10/25/21 10/25/21 10/25/21 10:50 10:50 13:59 Sodium Potassium Chloride Carbon Dioxide Anion Gap BUN Creatinine Estim Creat Clear Calc Estimated GFR Random Glucose Lactic Acid F/U @ 2Hr 1.1 Calcium Magnesium Stool Leukocytes, Qual FEW: < 2/OIF C. difficile Tox B Gene POSITIVE A* C. difficile Toxin A&B Negative C. difficile Interpret SEE NOTE 10/25/21 10/26/21 18:00 07:30 Sodium 140 Potassium 4.4 D 4.3 Chloride 109 H Carbon Dioxide 21 L Anion Gap 14 BUN 42 H Creatinine 2.49 H Estim Creat Clear Calc 19.4 Estimated GFR 25 Random Glucose 144 H D Lactic Acid F/U @ 2Hr Calcium 8.5 Magnesium 1.8 Stool Leukocytes, Qual C. difficile Tox B Gene C. difficile Toxin A&B C. difficile Interpret Progress Note: A&P Assessment and plan (1) Chest pain: Status: Acute (2) Status post transcatheter aortic valve replacement (TAVR) using bioprosthesis: Status: Acute (3) Atherosclerotic cardiovascular disease: Status: Acute (4) NICM (nonischemic cardiomyopathy): Status: Acute Plan High sensitivity troponins are within range-18.3 and 24.6. EKG has some T inversions but no clear-cut ischemic changes. Cardiac catheterization from 2017- circumflex and RCA-ostial 50% stenosis but otherwise unremarkable. Subsequently, he underwent#26 Shorty Fung transcatheter aortic valve replacement. Last echocardiogram from [facility] from 2017 shows LVEF of 20 25% with severe hypokinesis globally. Severely dilated left atrium. TAVR itself was functioning normally. Echocardiogram yesterday, LVEF 63%. Normally functioning bioprosthetic aortic valve. Overall, he has lot of cardiac and vascular issues but the current admission seems to be more other GI in nature. Chest pain is also likely from this. Doubt any clear cardiac etiology for the chest pain. It seems that C diff has been reported positive. That might explain all his GI symptoms. Overall from the cardiac standpoint, no specific management. Will see as needed. Chronic cardiac issues will need to be addressed as an outpatient. Fall Risk Details Current Medications: Current Medications Acetaminophen (Acetaminophen 325 Mg Tablet) 650 mg PO Q6H PRN PRN Reason: Pain, Mild (Pain Scale 1-3) Aspirin (Aspirin Enteric Coated 81 Mg Tablet.) 81 mg PO DAILY [facility] Last Admin: 10/26/21 09:42 Dose: 81 mg Documented by: Atorvastatin Calcium (Atorvastatin Calcium 10 Mg Tablet) 10 mg PO BEDTIME [facility] Last Admin: 10/25/21 21:25 Dose: 10 mg Documented by: Calcitriol (Calcitriol 0.25 Mcg Capsule) 0.25 mcg PO Q2D [facility] Last Admin: 10/26/21 09:42 Dose: 0.25 mcg Documented by: Cyanocobalamin (Cyanocobalamin (Vitamin B-12) 500 Mcg Tablet) 1,500 mcg PO DAILY [facility] Last Admin: 10/26/21 09:42 Dose: 1,500 mcg Documented by: Docusate Sodium (Docusate Sodium 100 Mg Capsule) 100 mg PO DAILY PRN PRN Reason: Constipation Doxazosin Mesylate (Doxazosin Mesylate 2 Mg Tablet) 8 mg PO BEDTIME [facility]; Protocol Last Admin: 10/25/21 21:26 Dose: 8 mg Documented by: Enoxaparin Sodium (Enoxaparin Sodium 30 Mg/0.3 Ml Syringe) 30 mg SUBCUT Q24H [facility] Last Admin: 10/26/21 11:33 Dose: 30 mg Documented by: Ferrous Sulfate (Ferrous Sulfate 324 Mg Tablet.) 324 mg PO BID [facility] Last Admin: 10/26/21 09:42 Dose: 324 mg Documented by: Finasteride (Finasteride 5 Mg Tablet) 5 mg PO DAILY [facility] Last Admin: 10/26/21 09:42 Dose: 5 mg Documented by: Hydralazine HCl (Hydralazine Hcl 10 Mg Tablet) 10 mg PO TID [facility]; Protocol Last Admin: 10/26/21 09:43 Dose: 10 mg Documented by: Ceftriaxone Sodium 1 gm/ (Sodium Chloride) 50 mls @ 100 mls/hr IV Q24H [facility] Magnesium Oxide (Magnesium Oxide 400 Mg Tablet) 400 mg PO BIDPC [facility] Metoprolol Tartrate (Metoprolol Tartrate 50 Mg Tablet) 50 mg PO BID [facility]; Protocol Last Admin: 10/26/21 09:43 Dose: 50 mg Documented by: Metronidazole (Metronidazole 500 Mg Tablet) 500 mg PO Q8H [facility] Last Admin: 10/26/21 07:19 Dose: 500 mg Documented by: Ondansetron HCl (Ondansetron Hcl 4 Mg/2 Ml Vial) 4 mg IVPUSH Q8H PRN PRN Reason: Nausea and Vomiting Oxycodone HCl (Oxycodone Hcl Immed Release 5 Mg Tablet) 20 mg PO BID PRN PRN Reason: Pain, Moderate (Pain Scale 4-6 Pharmacy Consult (Consult Rx Perform Med Rec) 1 each MISCELLANE ONCE PRN PRN Reason: Consult order Pharmacy Consult (Consult Rx Perform Med Rec) 1 each MISCELLANE ONCE PRN PRN Reason: Consult order Sodium Chloride (0.9 % Sodium Chloride Flush 3 Ml Syringe) 3 ml IVFLUSH QSHIFT [facility] Last Admin: 10/26/21 07:25 Dose: Not Given Documented by: Vancomycin HCl (Vancomycin Hcl 125 Mg Capsule) 125 mg PO Q6H [facility] Last Admin: 10/26/21 09:43 Dose: 125 mg Documented by: Vitamin D (Cholecalciferol (Vitamin D3) 25 Mcg Tablet) 50 mcg PO DAILY [facility] Last Admin: 10/26/21 09:42 Dose: 50 mcg Documented by: Time Spent With Patient Time: Total time spent is greater than 50% in coordination of care (as documented) at patient's floor/unit and/or counseling patient: Time with patient: less than 15 minutes Progress Note: Quality Stroke Does the patient have a stroke diagnosis?: No Procedures Date of Service Date of Service: 10/26/21
--- NOTE | 2021-10-26 13:39 | P.PNGS_ITS ---
Subjective Subjective Date of Service: 10/26/21 Interval history: States says he feels much better today minimal abdominal pain diarrhea improved asking if he could go home later on today Physical Exam Vital Signs: Vital Signs: Last Vital Signs Temp 98.0 F 10/26/21 00:10 Pulse 51 10/26/21 10:52 Resp 17 10/26/21 10:52 BP 157/59 H 10/26/21 10:52 Pulse Ox 98 10/26/21 10:52 BMI result Body Mass Index 20.5 Const: Other: oriented x3, appears comfortable General: comfortable and no acute distress Resp: Effort & Inspection: normal respiratory effort Cardio: Rate: regular rate GI: Other: minimal tenderness Palpation (GI): Soft to palpation, not firm and no guarding Objective Data Active Medications Acetaminophen (Acetaminophen 325 Mg Tablet) 650 mg PO Q6H PRN PRN Reason: Pain, Mild (Pain Scale 1-3) Aspirin (Aspirin Enteric Coated 81 Mg Tablet.) 81 mg PO DAILY [facility] Last Admin: 10/26/21 09:42 Dose: 81 mg Documented by: DAYNA Atorvastatin Calcium (Atorvastatin Calcium 10 Mg Tablet) 10 mg PO BEDTIME [facility] Last Admin: 10/25/21 21:25 Dose: 10 mg Documented by: THANIA Calcitriol (Calcitriol 0.25 Mcg Capsule) 0.25 mcg PO Q2D [facility] Last Admin: 10/26/21 09:42 Dose: 0.25 mcg Documented by: DAYNA Cyanocobalamin (Cyanocobalamin (Vitamin B-12) 500 Mcg Tablet) 1,500 mcg PO DAILY [facility] Last Admin: 10/26/21 09:42 Dose: 1,500 mcg Documented by: DAYNA Docusate Sodium (Docusate Sodium 100 Mg Capsule) 100 mg PO DAILY PRN PRN Reason: Constipation Doxazosin Mesylate (Doxazosin Mesylate 2 Mg Tablet) 8 mg PO BEDTIME [facility]; Protocol Last Admin: 10/25/21 21:26 Dose: 8 mg Documented by: THANIA Enoxaparin Sodium (Enoxaparin Sodium 30 Mg/0.3 Ml Syringe) 30 mg SUBCUT Q24H [facility] Last Admin: 10/26/21 11:33 Dose: 30 mg Documented by: DAYNA Ferrous Sulfate (Ferrous Sulfate 324 Mg Tablet.) 324 mg PO BID [facility] Last Admin: 10/26/21 09:42 Dose: 324 mg Documented by: DAYNA Finasteride (Finasteride 5 Mg Tablet) 5 mg PO DAILY [facility] Last Admin: 10/26/21 09:42 Dose: 5 mg Documented by: DAYNA Hydralazine HCl (Hydralazine Hcl 10 Mg Tablet) 10 mg PO TID [facility]; Protocol Last Admin: 10/26/21 09:43 Dose: 10 mg Documented by: DAYNA Ceftriaxone Sodium 1 gm/ (Sodium Chloride) 50 mls @ 100 mls/hr IV Q24H [facility] ([facility] 400 [facility] Metoprolol Tartrate (Metoprolol Tartrate 50 Mg Tablet) 50 mg PO BID [facility]; Protocol Last Admin: 10/26/21 09:43 Dose: 50 mg Documented by: DAYNA Metronidazole (Metronidazole 500 Mg Tablet) 500 mg PO Q8H [facility] Last Admin: 10/26/21 07:19 Dose: 500 mg Documented by: JENNA Ondansetron HCl (Ondansetron Hcl 4 Mg/2 Ml Vial) 4 mg IVPUSH Q8H PRN PRN Reason: Nausea and Vomiting Oxycodone HCl (Oxycodone Hcl Immed Release 5 Mg Tablet) 20 mg PO BID PRN PRN Reason: Pain, Moderate (Pain Scale 4-6 Pharmacy Consult (Consult Rx Perform Med Rec) 1 each MISCELLANE ONCE PRN PRN Reason: Consult order Pharmacy Consult (Consult Rx Perform Med Rec) 1 each MISCELLANE ONCE PRN PRN Reason: Consult order Sodium Chloride (0.9 % Sodium Chloride Flush 3 Ml Syringe) 3 ml IVFLUSH QSHIFT [facility] Last Admin: 10/26/21 07:25 Dose: Not Given Documented by: DAYNA Non-Admin Reason: Med Not Available Vancomycin HCl (Vancomycin Hcl 125 Mg Capsule) 125 mg PO Q6H [facility] Last Admin: 10/26/21 09:43 Dose: 125 mg Documented by: DAYNA Vitamin D (Cholecalciferol (Vitamin D3) 25 Mcg Tablet) 50 mcg PO DAILY [facility] Last Admin: 10/26/21 09:42 Dose: 50 mcg Documented by: HO.N-MALIR Labs CBC & Chem 7: 10/25/21 06:27 10/26/21 07:30 Labs: Laboratory Results - last 24 hr 10/25/21 10/25/21 10/25/21 10:50 13:59 18:00 Anion Gap Estim Creat Clear Calc Estimated GFR Random Glucose Lactic Acid F/U @ 2Hr 1.1 Calcium Magnesium 1.8 C. difficile Toxin A&B Negative C. difficile Interpret SEE NOTE 10/26/21 07:30 Anion Gap 14 Estim Creat Clear Calc 19.4 Estimated GFR 25 Random Glucose 144 H D Lactic Acid F/U @ 2Hr Calcium 8.5 Magnesium C. difficile Toxin A&B C. difficile Interpret Microbiology Microbiology Results: Microbiology 10/25/21 10:50 Stool Culture - Preliminary Stool Normal so far. 10/24/21 Unknown Urine Culture - Final Urine clean catch - Urine pacheco top Morganella morganii [facility] [place] 10/24/21 17:56 Blood Culture - Preliminary Blood - Venous No growth after 24 hours. 10/24/21 17:56 Blood Culture - Preliminary Blood - Venous No growth after 24 hours. Procedures Date of Service Date of Service: 10/26/21 Progress Note: A&P Assessment and plan (1) Abnormal CT of the abdomen: Status: Acute Assessment and Plan: had venous gas with a very benign exam of the abdomen repeat lactate normal; elevated initial lactate likely secondary to volume depletion patient appears well, nontoxic looking abdomen soft, no guarding no rebound stable vital signs has UTI and C diff positive clinically does not need any surgical intervention at this time for abdomen overall doing quite well Fall Risk Details Current Medications: Current Medications Acetaminophen (Acetaminophen 325 Mg Tablet) 650 mg PO Q6H PRN PRN Reason: Pain, Mild (Pain Scale 1-3) Aspirin (Aspirin Enteric Coated 81 Mg Tablet.) 81 mg PO DAILY [facility] Last Admin: 10/26/21 09:42 Dose: 81 mg Documented by: Atorvastatin Calcium (Atorvastatin Calcium 10 Mg Tablet) 10 mg PO BEDTIME [facility] Last Admin: 10/25/21 21:25 Dose: 10 mg Documented by: Calcitriol (Calcitriol 0.25 Mcg Capsule) 0.25 mcg PO Q2D [facility] Last Admin: 10/26/21 09:42 Dose: 0.25 mcg Documented by: Cyanocobalamin (Cyanocobalamin (Vitamin B-12) 500 Mcg Tablet) 1,500 mcg PO DAILY [facility] Last Admin: 10/26/21 09:42 Dose: 1,500 mcg Documented by: Docusate Sodium (Docusate Sodium 100 Mg Capsule) 100 mg PO DAILY PRN PRN Reason: Constipation Doxazosin Mesylate (Doxazosin Mesylate 2 Mg Tablet) 8 mg PO BEDTIME [facility]; Protocol Last Admin: 10/25/21 21:26 Dose: 8 mg Documented by: Enoxaparin Sodium (Enoxaparin Sodium 30 Mg/0.3 Ml Syringe) 30 mg SUBCUT Q24H [facility] Last Admin: 10/26/21 11:33 Dose: 30 mg Documented by: Ferrous Sulfate (Ferrous Sulfate 324 Mg Tablet.) 324 mg PO BID [facility] Last Admin: 10/26/21 09:42 Dose: 324 mg Documented by: Finasteride (Finasteride 5 Mg Tablet) 5 mg PO DAILY [facility] Last Admin: 10/26/21 09:42 Dose: 5 mg Documented by: Hydralazine HCl (Hydralazine Hcl 10 Mg Tablet) 10 mg PO TID [facility]; Protocol Last Admin: 10/26/21 09:43 Dose: 10 mg Documented by: Ceftriaxone Sodium 1 gm/ (Sodium Chloride) 50 mls @ 100 mls/hr IV Q24H [facility] Magnesium Oxide (Magnesium Oxide 400 Mg Tablet) 400 mg PO BIDPC [facility] Metoprolol Tartrate (Metoprolol Tartrate 50 Mg Tablet) 50 mg PO BID [facility]; Protocol Last Admin: 10/26/21 09:43 Dose: 50 mg Documented by: Metronidazole (Metronidazole 500 Mg Tablet) 500 mg PO Q8H [facility] Last Admin: 10/26/21 07:19 Dose: 500 mg Documented by: Ondansetron HCl (Ondansetron Hcl 4 Mg/2 Ml Vial) 4 mg IVPUSH Q8H PRN PRN Reason: Nausea and Vomiting Oxycodone HCl (Oxycodone Hcl Immed Release 5 Mg Tablet) 20 mg PO BID PRN PRN Reason: Pain, Moderate (Pain Scale 4-6 Pharmacy Consult (Consult Rx Perform Med Rec) 1 each MISCELLANE ONCE PRN PRN Reason: Consult order Pharmacy Consult (Consult Rx Perform Med Rec) 1 each MISCELLANE ONCE PRN PRN Reason: Consult order Sodium Chloride (0.9 % Sodium Chloride Flush 3 Ml Syringe) 3 ml IVFLUSH QSHIFT [facility] Last Admin: 10/26/21 07:25 Dose: Not Given Documented by: Vancomycin HCl (Vancomycin Hcl 125 Mg Capsule) 125 mg PO Q6H [facility] Last Admin: 10/26/21 09:43 Dose: 125 mg Documented by: Vitamin D (Cholecalciferol (Vitamin D3) 25 Mcg Tablet) 50 mcg PO DAILY [facility] Last Admin: 10/26/21 09:42 Dose: 50 mcg Documented by: Time Spent With Patient Time: Total time spent is greater than 50% in coordination of care (as documented) at patient's floor/unit and/or counseling patient: Time with patient: 15 - 24 minutes Quality Stroke Does the patient have a stroke diagnosis?: No VTE Prior VTE?: No VTE Risk Level:: Medical - moderate - high VTE Device Contraindication: Treatment Not Indicated VTE Drug Contraindication: N/A - Med Ordered
--- NOTE | 2021-10-26 15:32 | W.PM.IDCN ---
History of Present Illness Data of Consult Service Date: 10/26/21 Requesting physician: Nayan Barnett Primary Care Provider: Renetta Hahn MD HPI Reason for consult: UTI,cdiff He presents with watery diarrhea for 2-3 days. He has also purulent looking urine from [place] bag. He has chronic catheter changed monthly His urine shows Morganella. Review of Systems Review of Systems: Yes all other systems are reviewed and are negative PMFSH Past Medical History Medical History Abnormal CT of the abdomen BPH (benign prostatic hyperplasia) CKD (chronic kidney disease) COPD (chronic obstructive pulmonary disease) CVA (cerebral vascular accident) Hypertension Family History Family History Mother CHF (congestive heart failure) Family history: reviewed and not pertinent Surgical History Surgical History H/O aortic valve replacement with porcine valve S/P AVR (aortic valve replacement) Social History Social History Household Members: Family Housing: House Alcohol intake: never Patient Tobacco Use Status: Current everyday Tobacco user Tobacco use type: Cigarette Cigarette Packs Per Day: 1 Cigarettes Per Day: 20.0 Advance Directives Date on File: 10/25/21 Current occupational status: retired Meds Allergies Allergy/AdvReac Type Severity Reaction Status Date / Time No Known Allergies Allergy Verified 10/24/21 14:24 [No Known Allergies*] Active Medications: Current Medications Acetaminophen (Acetaminophen 325 Mg Tablet) 650 mg PO Q6H PRN PRN Reason: Pain, Mild (Pain Scale 1-3) Aspirin (Aspirin Enteric Coated 81 Mg Tablet.) 81 mg PO DAILY [facility] Last Admin: 10/26/21 09:42 Dose: 81 mg Documented by: Atorvastatin Calcium (Atorvastatin Calcium 10 Mg Tablet) 10 mg PO BEDTIME [facility] Last Admin: 10/25/21 21:25 Dose: 10 mg Documented by: Calcitriol (Calcitriol 0.25 Mcg Capsule) 0.25 mcg PO Q2D [facility] Last Admin: 10/26/21 09:42 Dose: 0.25 mcg Documented by: Cyanocobalamin (Cyanocobalamin (Vitamin B-12) 500 Mcg Tablet) 1,500 mcg PO DAILY [facility] Last Admin: 10/26/21 09:42 Dose: 1,500 mcg Documented by: Docusate Sodium (Docusate Sodium 100 Mg Capsule) 100 mg PO DAILY PRN PRN Reason: Constipation Doxazosin Mesylate (Doxazosin Mesylate 2 Mg Tablet) 8 mg PO BEDTIME [facility]; Protocol Last Admin: 10/25/21 21:26 Dose: 8 mg Documented by: Enoxaparin Sodium (Enoxaparin Sodium 30 Mg/0.3 Ml Syringe) 30 mg SUBCUT Q24H [facility] Last Admin: 10/26/21 11:33 Dose: 30 mg Documented by: Ferrous Sulfate (Ferrous Sulfate 324 Mg Tablet.) 324 mg PO BID [facility] Last Admin: 10/26/21 09:42 Dose: 324 mg Documented by: Finasteride (Finasteride 5 Mg Tablet) 5 mg PO DAILY [facility] Last Admin: 10/26/21 09:42 Dose: 5 mg Documented by: Hydralazine HCl (Hydralazine Hcl 10 Mg Tablet) 10 mg PO TID [facility]; Protocol Last Admin: 10/26/21 09:43 Dose: 10 mg Documented by: Ceftriaxone Sodium 1 gm/ (Sodium Chloride) 50 mls @ 100 mls/hr IV Q24H [facility] Magnesium Oxide (Magnesium Oxide 400 Mg Tablet) 400 mg PO BIDPC [facility] Metoprolol Tartrate (Metoprolol Tartrate 50 Mg Tablet) 50 mg PO BID [facility]; Protocol Last Admin: 10/26/21 09:43 Dose: 50 mg Documented by: Metronidazole (Metronidazole 500 Mg Tablet) 500 mg PO Q8H [facility] Last Admin: 10/26/21 07:19 Dose: 500 mg Documented by: Ondansetron HCl (Ondansetron Hcl 4 Mg/2 Ml Vial) 4 mg IVPUSH Q8H PRN PRN Reason: Nausea and Vomiting Oxycodone HCl (Oxycodone Hcl Immed Release 5 Mg Tablet) 20 mg PO BID PRN PRN Reason: Pain, Moderate (Pain Scale 4-6 Pharmacy Consult (Consult Rx Perform Med Rec) 1 each MISCELLANE ONCE PRN PRN Reason: Consult order Pharmacy Consult (Consult Rx Perform Med Rec) 1 each MISCELLANE ONCE PRN PRN Reason: Consult order Sodium Chloride (0.9 % Sodium Chloride Flush 3 Ml Syringe) 3 ml IVFLUSH QSHIFT [facility] Last Admin: 10/26/21 07:25 Dose: Not Given Documented by: Vancomycin HCl (Vancomycin Hcl 125 Mg Capsule) 125 mg PO Q6H [facility] Last Admin: 10/26/21 09:43 Dose: 125 mg Documented by: Vitamin D (Cholecalciferol (Vitamin D3) 25 Mcg Tablet) 50 mcg PO DAILY [facility] Last Admin: 10/26/21 09:42 Dose: 50 mcg Documented by: Home Medications Medication Instructions Recorded Confirmed Last Taken Type aspirin 81 mg tablet,delayed 81 mg PO DAILY 10/24/21 10/24/21 10/24/21 History release atorvastatin 10 mg tablet 1 tab PO BEDTIME 10/24/21 10/24/21 10/23/21 History calcitriol 0.25 mcg capsule 0.25 mcg PO Q2D 10/24/21 10/24/21 Unknown History cholecalciferol (vitamin D3) 50 50 mcg PO DAILY 10/24/21 10/24/21 10/24/21 History mcg (2,000 unit) tablet (Vitamin D3) cyanocobalamin (vitamin B-12) 1,500 mcg PO DAILY 10/24/21 10/24/21 10/24/21 History 1,500 mcg tablet,extended release ferrous sulfate 324 mg (65 mg 648 mg PO DAILY 10/24/21 10/24/21 10/24/21 History iron) tablet,delayed release hydralazine 10 mg tablet 1 tab PO TID 10/24/21 10/24/21 10/24/21 History metoprolol tartrate 25 mg tablet 1 tab PO BID 10/24/21 10/24/21 10/24/21 History oxycodone 20 mg tablet 1 tab PO BID PRN 10/24/21 10/24/21 10/24/21 History Physical Exam Vital Signs: Vital Signs: Last Vital Signs Temp 98.0 F 10/26/21 00:10 Pulse 51 10/26/21 10:52 Resp 17 10/26/21 10:52 BP 157/59 H 10/26/21 10:52 Pulse Ox 98 10/26/21 10:52 BMI result Body Mass Index 20.5 Const: General: cooperative Eyes: General: appearance normal, both eyes and all related structures Resp: Effort & Inspection: normal respiratory effort Cardio: Rate: regular rate Rhythm: regular rhythm GI: Palpation (GI): Soft to palpation and nontender Extrem: General: Yes normal to inspection Results Labs CBC & Chem 7: 10/28/21 05:49 10/28/21 05:49 Labs: BMP 10/25/21 10/26/21 18:00 07:30 Sodium 140 Potassium 4.4 D 4.3 Chloride 109 H Carbon Dioxide 21 L BUN 42 H Creatinine 2.49 H Calcium 8.5 Microbiology Microbiology Results: Microbiology 10/25/21 10:50 Stool Stool Culture - Preliminary Normal so far. 10/24/21 Unknown Urine clean catch - Urine pacheco top Urine Culture - Final Morganella morganii [facility] [place] 10/24/21 17:56 Blood - Venous Blood Culture - Preliminary No growth after 24 hours. 10/24/21 17:56 Blood - Venous Blood Culture - Preliminary No growth after 24 hours. Assessment and Plan (1) BPH (benign prostatic hyperplasia): Status: Acute (2) UTI (urinary tract infection): Status: Acute Morganella He has some UTI likely Levaquin for 14 days. (3) Enteritis: Status: Acute Cdiff po Vancomycin 125 qid for 10 days likely
[2021-10-26] MEDS: Magnesium Oxide 400 MG TABLET PO (17:09)
[2021-10-26] MEDS: levoFLOXacin/D5W 250 MG/50 ML PIGGYBACK 50 MG IV (17:09)
[2021-10-26 17:10] VITALS: BP 147/61; PULSE 61; RESP 18; O2SAT 97
--- NOTE | 2021-10-26 19:41 | PC.NURSE ---
Addendum entered by Tyler Rodney RN 10/26/21 20:13: R arm has bruising on the forarm and the elbow. Original Note: pt is alert and oriented x4. Pt resp are even and unlabored. pt pupils are perrl, speech is appropriate. Pt states nochest pain, no edema noted. Abd is soft with mild tenderness in the lower center quadrant. pt endorses frequent diarrhea. pt has raymond in place. skin is pwd.
[2021-10-26 19:51] VITALS: BP 143/56; PULSE 60; RESP 24; TEMP 37; O2SAT 96
[2021-10-26] MEDS: Doxazosin Mesylate 2 MG TABLET 8 MG PO (20:04)
[2021-10-26] MEDS: Atorvastatin Calcium 10 MG TABLET PO (20:07)
[2021-10-26] MEDS: 0.9 % Sodium Chloride Flush 3 ML SYRINGE IVFLUSH (23:45)
[2021-10-27] VITALS (7 sets, daily range): BP systolic 143–176; BP diastolic 54–72; PULSE 53–81; RESP 16–20; TEMP 36.6–37; O2SAT 94–96; BMI 20.5
[2021-10-27] MEDS: vancomycin HCL 125 MG CAPSULE PO ×2 (03:44→08:40)
--- NOTE | 2021-10-27 03:55 | PC.NURSE ---
PATIENT TRANSFERRED TO ROOM [address] [place] [address] UNIT VIA HIS BED AND TELE MONITOR. TRANSPORTED BY INDEPENDENT CROP CONSULTANT AND ALUMINUM CAN COLLECTOR, REPORT GIVEN TO [place] [address] RN. PATIENT ON C DIFF PRECAUTIONS, NO COMPLAINTS OF PAIN, DOTY PATENT AND EMPTIED FOR 800ML LYUBOV URINE, NOTED LIQUID LOOSE STOOLS TO BEDSIDE COMMODE, PO VANCOMYCIN ORDERED.
[2021-10-27 06:56] LABS: Anion Gap 13 (12-20); Blood Urea Nitrogen 35 mg/dL (9-16); Calcium 8.2 mg/dL (8.4-10.2); Carbon Dioxide 21 mmol/L (22-29); Chloride 105 mmol/L (96-108); Creatinine Clr Calc Pharmacy 19.7; Estimated Glomerular Filt Rate 25; Glucose Random 92 mg/dL (60-115); Sodium 135 mmol/L (135-145)
[2021-10-27] MEDS: 0.9 % Sodium Chloride Flush 3 ML SYRINGE IVFLUSH ×3 (07:46→20:47)
[2021-10-27] MEDS: Cholecalciferol (Vitamin D3) 25 MCG TABLET 50 MCG PO (08:39)
[2021-10-27] MEDS: Ferrous Sulfate 324 MG TABLET.DR PO ×2 (08:40→20:47)
[2021-10-27] MEDS: hydrALAZINE HCl 10 MG TABLET PO ×3 (08:40→20:47)
[2021-10-27] MEDS: Finasteride 5 MG TABLET PO (08:40)
[2021-10-27] MEDS: Aspirin Enteric Coated 81 MG TABLET.DR PO (08:40)
[2021-10-27] MEDS: Cyanocobalamin (Vitamin B-12) 500 MCG TABLET 1500 MCG PO (08:40)
[2021-10-27] MEDS: Magnesium Oxide 400 MG TABLET PO ×2 (08:40→18:28)
[2021-10-27] MEDS: Enoxaparin Sodium 30 MG/0.3 ML SYRINGE SUBCUT (09:38)
--- NOTE | 2021-10-27 12:04 | HO.PM.IMPN ---
Subjective Subjective Date of Service: 10/27/21 Interval History: uti/cdiff infection Review of Systems Diarrhea is slightly better but still having diarrhea, still has abdominal pain Denies any chest pain or shortness of breath or fever or chills. Physical Exam Vital Signs: Vital Signs: Last Vital Signs Temp 98.3 F 10/27/21 11:55 Pulse 77 10/27/21 11:55 Resp 20 10/27/21 11:55 BP 144/67 H 10/27/21 11:55 Pulse Ox 95 10/27/21 11:55 BMI result Body Mass Index 20.5 Appearance: Alert.? Oriented X3.? Eyes: Pupils equal, round and reactive to light.? Sclera nonicteric.? ENT: Pharynx normal.? Moist mucous membranes. cvs: rrr, [id number] , no murmur res: clear to auscultation ,no rhonchii or wheezing abd: no rebound or guarding ,left lower? abd pain still present , bs present. ext pulses present , no cyanosis . neuro: axo3 , nonfocal. Objective Data Active Medications Acetaminophen (Acetaminophen 325 Mg Tablet) 650 mg PO Q6H PRN PRN Reason: Pain, Mild (Pain Scale 1-3) Aspirin (Aspirin Enteric Coated 81 Mg Tablet.) 81 mg PO DAILY [facility] Last Admin: 10/27/21 08:40 Dose: 81 mg Documented by: MNUIR Atorvastatin Calcium (Atorvastatin Calcium 10 Mg Tablet) 10 mg PO BEDTIME [facility] Last Admin: 10/26/21 20:07 Dose: 10 mg Documented by: VICTOR M Calcitriol (Calcitriol 0.25 Mcg Capsule) 0.25 mcg PO Q2D [facility] Last Admin: 10/26/21 09:42 Dose: 0.25 mcg Documented by: CANELO-[place] Cyanocobalamin (Cyanocobalamin (Vitamin B-12) 500 Mcg Tablet) 1,500 mcg PO DAILY [facility] Last Admin: 10/27/21 08:40 Dose: 1,500 mcg Documented by: MUNIR Docusate Sodium (Docusate Sodium 100 Mg Capsule) 100 mg PO DAILY PRN PRN Reason: Constipation Doxazosin Mesylate (Doxazosin Mesylate 2 Mg Tablet) 8 mg PO BEDTIME [facility]; Protocol Last Admin: 10/26/21 20:04 Dose: 8 mg Documented by: VICTOR M Enoxaparin Sodium (Enoxaparin Sodium 30 Mg/0.3 Ml Syringe) 30 mg SUBCUT Q24H [facility] Last Admin: 10/27/21 09:38 Dose: 30 mg Documented by: MUNIR Ferrous Sulfate (Ferrous Sulfate 324 Mg Tablet.Dr) 324 mg PO BID [facility] Last Admin: 10/27/21 08:40 Dose: 324 mg Documented by: MUNIR Finasteride (Finasteride 5 Mg Tablet) 5 mg PO DAILY [facility] Last Admin: 10/27/21 08:40 Dose: 5 mg Documented by: MUNIR Hydralazine HCl (Hydralazine Hcl 10 Mg Tablet) 10 mg PO TID [facility]; Protocol Last Admin: 10/27/21 08:40 Dose: 10 mg Documented by: MUNIR Levofloxacin (Levaquin) 250 mg in 50 mls @ 50 mls/hr IV Q24H [facility] Last Infusion: 10/26/21 18:02 Dose: 0 mls/hr Documented by: CANELO-MALIR Magnesium Oxide (Magnesium Oxide 400 Mg Tablet) 400 mg PO BIDPC [facility] Last Admin: 10/27/21 08:40 Dose: 400 mg Documented by: MUNIR Metoprolol Tartrate (Metoprolol Tartrate 50 Mg Tablet) 50 mg PO BID [facility]; Protocol Last Admin: 10/27/21 08:44 Dose: Not Given Documented by: MUNIR Non-Admin Reason: Decreased Heart Rate Ondansetron HCl (Ondansetron Hcl 4 Mg/2 Ml Vial) 4 mg IVPUSH Q8H PRN PRN Reason: Nausea and Vomiting Oxycodone HCl (Oxycodone Hcl Immed Release 5 Mg Tablet) 20 mg PO BID PRN PRN Reason: Pain, Moderate (Pain Scale 4-6 Pharmacy Consult (Consult Rx Perform Med Rec) 1 each MISCELLANE ONCE PRN PRN Reason: Consult order Pharmacy Consult (Consult Rx Perform Med Rec) 1 each MISCELLANE ONCE PRN PRN Reason: Consult order Sodium Chloride (0.9 % Sodium Chloride Flush 3 Ml Syringe) 3 ml IVFLUSH QSHIFT [facility] Last Admin: 10/27/21 07:46 Dose: 3 ml Documented by: MUNIR Vancomycin HCl (Vancomycin Hcl 125 Mg Capsule) 125 mg PO Q6H [facility] Last Admin: 10/27/21 08:40 Dose: 125 mg Documented by: MUNIR Vitamin D (Cholecalciferol (Vitamin D3) 25 Mcg Tablet) 50 mcg PO DAILY [facility] Last Admin: 10/27/21 08:39 Dose: 50 mcg Documented by: MUNIR Labs CBC & Chem 7: 10/25/21 06:27 10/27/21 05:37 Labs: Laboratory Results - last 24 hr 10/24/21 10/24/21 10/27/21 14:45 14:45 05:37 Anion Gap 13 Estim Creat Clear Calc 19.7 Estimated GFR 25 Random Glucose 92 D Calcium 8.2 L Magnesium 2.1 B-Natriuretic Peptide 634 H Lipase 35 Microbiology Microbiology Results: Microbiology 10/25/21 10:50 Stool Culture - Preliminary Stool Normal so far. 10/24/21 Unknown Urine Culture - Final Urine clean catch - Urine pacheco top Morganella morganii [facility] [place] 10/24/21 17:56 Blood Culture - Preliminary Blood - Venous No growth after 48 hours. 10/24/21 17:56 Blood Culture - Preliminary Blood - Venous No growth after 48 hours. Assessment and Plan (1) Abnormal CT of the abdomen: Status: Acute (2) UTI (urinary tract infection): Status: Acute (3) Urinary retention: Status: Acute (4) Enteritis: Status: Acute Plan 85-year-old male with past medical history of CVA, COPD, BPH presents the hospital with abdominal pain as well as chest pain.? Found to have urinary retention, UTI, as well as enteritis 1.? abdominal pain:-? acute abdominal pain secondary to enteritis( see ct abd). abd ct -? portal edis gas -seen by surgery: Patient abdomen is benign, portal gas thought to be secondary to possibly enteritis. clear liquid diet, stool studies -possible c diff dirrhae and abd pain somewhat improving continue po vanco as well as p.o. Flagyl 2.possible sepsis sec UTI/enteritis -? has leukocytosis, positive UA lactic acidsois resolved -? complicated by urinary retention -? will treat with IV antibiotic -? follow cultures 3.chest pain-? troponin negative x2 -? EKG reviewed by toll gate tender shows sinus rhythm with PACs, no evidence of AFib possible noncardiac, cardiology saw the patient thought to be noncardiac chest pain. Possible GI related pain. Echo pending. 4.? KARLA on CKD-? no previous creatinine for comparison but has elevated BUN and creatinine with improvement after fluid resuscitation Worsening of renal failure possibly out related to bladder obstruction and distended-please see CT abdomen. KARLA possibly related to obstruction rather than sepsis. -? will continue fluids -? follow BMP Patient may need Raymond, avoid nephrotoxic medications, urology consult. 5.? urinary retention -? most likely multifactorial secondary to BPH, UTI, as well as abnormality seen on abdominal CT -? patient currently has Raymond catheter in, will continue -? urology consult-S/P raymond for 5 day and then voiding trial urology following 6.? COPD - ? not in exacerbation -? continue home inhalers 7.? history of CVA -? no new changes -? continue aspirin and statin 8.? hypertension -? stable -? continue home medications DVT ppx: lovenox Quality Stroke Does the patient have a stroke diagnosis?: No VTE Prior VTE?: No VTE Risk Level:: Medical - moderate - high VTE Device Contraindication: Treatment Not Indicated VTE Drug Contraindication: N/A - Med Ordered
--- NOTE | 2021-10-27 13:41 | PM.PNGS ---
Subjective Subjective Date of Service: 10/27/21 Interval history: feeling well, no abdo pain less diarrhea, tolerating diet well Physical Exam Vital Signs: Vital Signs: Last Vital Signs Temp 98.3 F 10/27/21 11:55 Pulse 77 10/27/21 11:55 Resp 20 10/27/21 11:55 BP 144/67 H 10/27/21 11:55 Pulse Ox 95 10/27/21 11:55 BMI result Body Mass Index 20.5 GI: Other: abdo soft mild distension no pain Objective Data Active Medications Acetaminophen (Acetaminophen 325 Mg Tablet) 650 mg PO Q6H PRN PRN Reason: Pain, Mild (Pain Scale 1-3) Aspirin (Aspirin Enteric Coated 81 Mg Tablet.) 81 mg PO DAILY [facility] Last Admin: 10/27/21 08:40 Dose: 81 mg Documented by: MUNIR Atorvastatin Calcium (Atorvastatin Calcium 10 Mg Tablet) 10 mg PO BEDTIME [facility] Last Admin: 10/26/21 20:07 Dose: 10 mg Documented by: VICTOR M Calcitriol (Calcitriol 0.25 Mcg Capsule) 0.25 mcg PO Q2D [facility] Last Admin: 10/26/21 09:42 Dose: 0.25 mcg Documented by: CANELO-[place] Cyanocobalamin (Cyanocobalamin (Vitamin B-12) 500 Mcg Tablet) 1,500 mcg PO DAILY [facility] Last Admin: 10/27/21 08:40 Dose: 1,500 mcg Documented by: MUNIR Docusate Sodium (Docusate Sodium 100 Mg Capsule) 100 mg PO DAILY PRN PRN Reason: Constipation Doxazosin Mesylate (Doxazosin Mesylate 2 Mg Tablet) 8 mg PO BEDTIME [facility]; Protocol Last Admin: 10/26/21 20:04 Dose: 8 mg Documented by: VICTOR M Enoxaparin Sodium (Enoxaparin Sodium 30 Mg/0.3 Ml Syringe) 30 mg SUBCUT Q24H [facility] Last Admin: 10/27/21 09:38 Dose: 30 mg Documented by: MUNIR Ferrous Sulfate (Ferrous Sulfate 324 Mg Tablet.) 324 mg PO BID [facility] Last Admin: 10/27/21 08:40 Dose: 324 mg Documented by: MUNIR Finasteride (Finasteride 5 Mg Tablet) 5 mg PO DAILY [facility] Last Admin: 10/27/21 08:40 Dose: 5 mg Documented by: MUNIR Hydralazine HCl (Hydralazine Hcl 10 Mg Tablet) 10 mg PO TID [facility]; Protocol Last Admin: 10/27/21 08:40 Dose: 10 mg Documented by: MUNIR Levofloxacin (Levaquin) 250 mg in 50 mls @ 50 mls/hr IV Q24H [facility] Last Infusion: 10/26/21 18:02 Dose: 0 mls/hr Documented by: CANELO-[place] Magnesium Oxide (Magnesium Oxide 400 Mg Tablet) 400 mg PO BIDPC [facility] Last Admin: 10/27/21 08:40 Dose: 400 mg Documented by: MUNIR Metoprolol Tartrate (Metoprolol Tartrate 50 Mg Tablet) 50 mg PO BID [facility]; Protocol Last Admin: 10/27/21 08:44 Dose: Not Given Documented by: MUNIR Non-Admin Reason: Decreased Heart Rate Ondansetron HCl (Ondansetron Hcl 4 Mg/2 Ml Vial) 4 mg IVPUSH Q8H PRN PRN Reason: Nausea and Vomiting Oxycodone HCl (Oxycodone Hcl Immed Release 5 Mg Tablet) 20 mg PO BID PRN PRN Reason: Pain, Moderate (Pain Scale 4-6 Pharmacy Consult (Consult Rx Perform Med Rec) 1 each MISCELLANE ONCE PRN PRN Reason: Consult order Pharmacy Consult (Consult Rx Perform Med Rec) 1 each MISCELLANE ONCE PRN PRN Reason: Consult order Sodium Chloride (0.9 % Sodium Chloride Flush 3 Ml Syringe) 3 ml IVFLUSH QSHIFT [facility] Last Admin: 10/27/21 07:46 Dose: 3 ml Documented by: MUNIR Vancomycin HCl (Vancomycin Hcl 125 Mg Capsule) 125 mg PO Q6H [facility] Last Admin: 10/27/21 08:40 Dose: 125 mg Documented by: MUNIR Vitamin D (Cholecalciferol (Vitamin D3) 25 Mcg Tablet) 50 mcg PO DAILY [facility] Last Admin: 10/27/21 08:39 Dose: 50 mcg Documented by: MUNIR Labs CBC & Chem 7: 10/25/21 06:27 10/27/21 05:37 Labs: Laboratory Results - last 24 hr 10/24/21 10/24/21 10/27/21 14:45 14:45 05:37 Anion Gap 13 Estim Creat Clear Calc 19.7 Estimated GFR 25 Random Glucose 92 D Calcium 8.2 L Magnesium 2.1 B-Natriuretic Peptide 634 H Lipase 35 Microbiology Microbiology Results: Microbiology 10/25/21 10:50 Stool Culture - Preliminary Stool Normal so far. 10/24/21 Unknown Urine Culture - Final Urine clean catch - Urine pacheco top Morganella morganii [facility] [place] 10/24/21 17:56 Blood Culture - Preliminary Blood - Venous No growth after 48 hours. 10/24/21 17:56 Blood Culture - Preliminary Blood - Venous No growth after 48 hours. Procedures Date of Service Date of Service: 10/27/21 Progress Note: A&P Assessment and plan (1) Abnormal CT of the abdomen: Status: Acute Assessment and Plan: pt with abdo changes on ct - enteritis ? c diff - cx negative on po vanco and flagyl and doing well. benign exam and good clinical status - no need for surgery and agree with dc home tomorrow with course of po antibx. fu with surgery as needed (2) Enteritis: Status: Acute Fall Risk Details Current Medications: Current Medications Acetaminophen (Acetaminophen 325 Mg Tablet) 650 mg PO Q6H PRN PRN Reason: Pain, Mild (Pain Scale 1-3) Aspirin (Aspirin Enteric Coated 81 Mg Tablet.) 81 mg PO DAILY [facility] Last Admin: 10/27/21 08:40 Dose: 81 mg Documented by: Atorvastatin Calcium (Atorvastatin Calcium 10 Mg Tablet) 10 mg PO BEDTIME [facility] Last Admin: 10/26/21 20:07 Dose: 10 mg Documented by: Calcitriol (Calcitriol 0.25 Mcg Capsule) 0.25 mcg PO Q2D [facility] Last Admin: 10/26/21 09:42 Dose: 0.25 mcg Documented by: Cyanocobalamin (Cyanocobalamin (Vitamin B-12) 500 Mcg Tablet) 1,500 mcg PO DAILY [facility] Last Admin: 10/27/21 08:40 Dose: 1,500 mcg Documented by: Docusate Sodium (Docusate Sodium 100 Mg Capsule) 100 mg PO DAILY PRN PRN Reason: Constipation Doxazosin Mesylate (Doxazosin Mesylate 2 Mg Tablet) 8 mg PO BEDTIME [facility]; Protocol Last Admin: 10/26/21 20:04 Dose: 8 mg Documented by: Enoxaparin Sodium (Enoxaparin Sodium 30 Mg/0.3 Ml Syringe) 30 mg SUBCUT Q24H [facility] Last Admin: 10/27/21 09:38 Dose: 30 mg Documented by: Ferrous Sulfate (Ferrous Sulfate 324 Mg Tablet.) 324 mg PO BID [facility] Last Admin: 10/27/21 08:40 Dose: 324 mg Documented by: Finasteride (Finasteride 5 Mg Tablet) 5 mg PO DAILY [facility] Last Admin: 10/27/21 08:40 Dose: 5 mg Documented by: Hydralazine HCl (Hydralazine Hcl 10 Mg Tablet) 10 mg PO TID [facility]; Protocol Last Admin: 10/27/21 08:40 Dose: 10 mg Documented by: Levofloxacin (Levaquin) 250 mg in 50 mls @ 50 mls/hr IV Q24H [facility] Last Infusion: 10/26/21 18:02 Dose: Infused Documented by: Magnesium Oxide (Magnesium Oxide 400 Mg Tablet) 400 mg PO BIDPC [facility] Last Admin: 10/27/21 08:40 Dose: 400 mg Documented by: Metoprolol Tartrate (Metoprolol Tartrate 50 Mg Tablet) 50 mg PO BID [facility]; Protocol Last Admin: 10/27/21 08:44 Dose: Not Given Documented by: Ondansetron HCl (Ondansetron Hcl 4 Mg/2 Ml Vial) 4 mg IVPUSH Q8H PRN PRN Reason: Nausea and Vomiting Oxycodone HCl (Oxycodone Hcl Immed Release 5 Mg Tablet) 20 mg PO BID PRN PRN Reason: Pain, Moderate (Pain Scale 4-6 Pharmacy Consult (Consult Rx Perform Med Rec) 1 each MISCELLANE ONCE PRN PRN Reason: Consult order Pharmacy Consult (Consult Rx Perform Med Rec) 1 each MISCELLANE ONCE PRN PRN Reason: Consult order Sodium Chloride (0.9 % Sodium Chloride Flush 3 Ml Syringe) 3 ml IVFLUSH QSHIFT [facility] Last Admin: 10/27/21 07:46 Dose: 3 ml Documented by: Vancomycin HCl (Vancomycin Hcl 125 Mg Capsule) 125 mg PO Q6H [facility] Last Admin: 10/27/21 08:40 Dose: 125 mg Documented by: Vitamin D (Cholecalciferol (Vitamin D3) 25 Mcg Tablet) 50 mcg PO DAILY [facility] Last Admin: 10/27/21 08:39 Dose: 50 mcg Documented by: Time Spent With Patient Time: Total time spent is greater than 50% in coordination of care (as documented) at patient's floor/unit and/or counseling patient: Time with patient: less than 15 minutes Quality Stroke Does the patient have a stroke diagnosis?: No VTE Prior VTE?: No VTE Risk Level:: Medical - moderate - high VTE Device Contraindication: Treatment Not Indicated VTE Drug Contraindication: N/A - Med Ordered
[2021-10-27] MEDS: levoFLOXacin/D5W 250 MG/50 ML PIGGYBACK 50 MG IV (15:30)
[2021-10-27] MEDS: vancomycin HCL Oral Solution 125 MG/5 ML SOLN.RECON PO ×2 (15:30→20:47)
[2021-10-27] MEDS: Doxazosin Mesylate 2 MG TABLET 8 MG PO (20:47)
[2021-10-27] MEDS: Metoprolol Tartrate 50 MG TABLET PO (20:47)
[2021-10-27] MEDS: Atorvastatin Calcium 10 MG TABLET PO (20:47)
--- NOTE | 2021-10-28 | ECG_ITS ---
Test Reason : irregukar tele Blood Pressure : / mmHG Vent. Rate : 060 BPM Atrial Rate : 060 BPM P-R Int : 294 ms QRS Dur : 098 ms QT Int : 470 ms P-R-T Axes : 069 005 077 degrees QTc Int : 470 ms Sinus rhythm with marked sinus arrhythmia with 1st degree A-V block Blocked PAC Premature ventricular complexes vs aberrantly conducted beat Septal infarct (cited on or before 23-JAN-2017) Abnormal ECG When compared with ECG of 24-OCT-2021 14:28, [place] interval has increased Questionable change in initial forces of Anteroseptal leads - could be due to lead placement Referred By: Cleve Mckeon Electronically Signed By:CARMITA NAQVI
--- NOTE | 2021-10-28 00:55 | MHC.PIE ---
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 i; dr deal notified. new order ekg now e; will cont to monitor
[2021-10-28 04:00] VITALS: BP 154/65; PULSE 60; RESP 16; TEMP 36.7; O2SAT 94
[2021-10-28] MEDS: vancomycin HCL Oral Solution 125 MG/5 ML SOLN.RECON PO ×4 (04:24→19:54)
[2021-10-28 05:59] LABS: Hematocrit 36.1 % (42.0-52.0); Hemoglobin 11.4 g/dl (14.0-18.0); Mean Corpuscular HGB Conc 31.6 g/dl (31.0-36.0); Mean Corpuscular Hemoglobin 29.4 pg (27.0-33.0); Platelet Count 197 X10*3/uL (160-400); Red Blood Count 3.88 X10*6/uL (4.60-5.80); White Blood Count 10.8 X10*3/uL (4.8-10.8)
[2021-10-28 06:15] LABS: Anion Gap 12 (12-20); Blood Urea Nitrogen 29 mg/dL (9-16); Calcium 8.5 mg/dL (8.4-10.2); Carbon Dioxide 22 mmol/L (22-29); Chloride 107 mmol/L (96-108); Creatinine Clr Calc Pharmacy 18.5; Estimated Glomerular Filt Rate 24; Glucose Random 95 mg/dL (60-115); Potassium 4.5 mmol/L (3.3-5.1); Sodium 136 mmol/L (135-145)
[2021-10-28 07:55] VITALS: BP 133/62; PULSE 69; RESP 18; TEMP 36.7; O2SAT 95
[2021-10-28 08:42] LABS: Alanine Aminotransferase 21 U/L (0-40); Albumin Level 3.3 g/dL (3.5-5.0); Alkaline Phosphatase 54 U/L (39-117); Aspartate Amino Transferase 21 U/L (5-37); Bilirubin Direct < 0.2 mg/dL (0.0-0.5); Bilirubin Total 0.3 mg/dL (0.0-1.0); Magnesium 2.2 mg/dL (1.6-2.6); Total Protein 5.7 g/dL (6.5-8.0)
[2021-10-28] MEDS: Cholecalciferol (Vitamin D3) 25 MCG TABLET 50 MCG PO (08:51)
[2021-10-28] MEDS: Finasteride 5 MG TABLET PO (08:52)
[2021-10-28] MEDS: 0.9 % Sodium Chloride Flush 3 ML SYRINGE IVFLUSH ×3 (08:52→19:54)
[2021-10-28] MEDS: Metoprolol Tartrate 50 MG TABLET PO (08:52)
[2021-10-28] MEDS: Ferrous Sulfate 324 MG TABLET.DR PO ×2 (08:52→19:53)
[2021-10-28] MEDS: Cyanocobalamin (Vitamin B-12) 500 MCG TABLET 1500 MCG PO (08:52)
[2021-10-28] MEDS: Aspirin Enteric Coated 81 MG TABLET.DR PO (08:52)
[2021-10-28] MEDS: Magnesium Oxide 400 MG TABLET PO ×2 (08:52→17:10)
[2021-10-28] MEDS: hydrALAZINE HCl 10 MG TABLET PO ×3 (08:52→19:53)
--- NOTE | 2021-10-28 09:55 | HO.PM.IMPN ---
Subjective Subjective Date of Service: 10/29/21 Interval History: nsvt, cdiff , uti Review of Systems still has diarrahe and abd pain, no fevers Physical Exam Vital Signs: Vital Signs: Last Vital Signs Temp 98.1 F 10/28/21 07:55 Pulse 69 10/28/21 07:55 Resp 18 10/28/21 07:55 BP 133/62 10/28/21 07:55 Pulse Ox 95 10/28/21 07:55 BMI result Body Mass Index 20.5 Appearance: Alert.? Oriented X3.? Eyes: Pupils equal, round and reactive to light.? Sclera nonicteric.? ENT: Pharynx normal.? Moist mucous membranes. cvs: rrr, [id number] , no murmur res: clear to auscultation ,no rhonchii or wheezing abd: no rebound or guarding ,left lower? abd pain , bs present. ext pulses present , no cyanosis . neuro: axo3 , nonfocal. Objective Data Active Medications Acetaminophen (Acetaminophen 325 Mg Tablet) 650 mg PO Q6H PRN PRN Reason: Pain, Mild (Pain Scale 1-3) Aspirin (Aspirin Enteric Coated 81 Mg Tablet.) 81 mg PO DAILY [facility] Last Admin: 10/28/21 08:52 Dose: 81 mg Documented by: MUNIR Atorvastatin Calcium (Atorvastatin Calcium 10 Mg Tablet) 10 mg PO BEDTIME [facility] Last Admin: 10/27/21 20:47 Dose: 10 mg Documented by: JOSE Calcitriol (Calcitriol 0.25 Mcg Capsule) 0.25 mcg PO Q2D [facility] Last Admin: 10/26/21 09:42 Dose: 0.25 mcg Documented by: DAYNA Cyanocobalamin (Cyanocobalamin (Vitamin B-12) 500 Mcg Tablet) 1,500 mcg PO DAILY [facility] Last Admin: 10/28/21 08:52 Dose: 1,500 mcg Documented by: MUNIR Docusate Sodium (Docusate Sodium 100 Mg Capsule) 100 mg PO DAILY PRN PRN Reason: Constipation Doxazosin Mesylate (Doxazosin Mesylate 2 Mg Tablet) 8 mg PO BEDTIME [facility]; Protocol Last Admin: 10/27/21 20:47 Dose: 8 mg Documented by: JOSE Enoxaparin Sodium (Enoxaparin Sodium 30 Mg/0.3 Ml Syringe) 30 mg SUBCUT Q24H [facility] Last Admin: 10/27/21 09:38 Dose: 30 mg Documented by: MUNIR Ferrous Sulfate (Ferrous Sulfate 324 Mg Tablet.Dr) 324 mg PO BID [facility] Last Admin: 10/28/21 08:52 Dose: 324 mg Documented by: MUNIR Finasteride (Finasteride 5 Mg Tablet) 5 mg PO DAILY [facility] Last Admin: 10/28/21 08:52 Dose: 5 mg Documented by: MUNIR Hydralazine HCl (Hydralazine Hcl 10 Mg Tablet) 10 mg PO TID [facility]; Protocol Last Admin: 10/28/21 08:52 Dose: 10 mg Documented by: MUNIR Levofloxacin (Levaquin) 250 mg in 50 mls @ 50 mls/hr IV Q24H [facility] Last Infusion: 10/27/21 16:38 Dose: 0 mls/hr Documented by: MUNIR [facility] ([facility]ide 400 Mg [facility]t) [facility] Last Admin: 10/28/21 08:52 Dose: 400 mg Documented by: MUNIR Metoprolol Tartrate (Metoprolol Tartrate 50 Mg Tablet) 50 mg PO BID [facility]; Protocol Last Admin: 10/28/21 08:52 Dose: 50 mg Documented by: MUNIR Ondansetron HCl (Ondansetron Hcl 4 Mg/2 Ml Vial) 4 mg IVPUSH Q8H PRN PRN Reason: Nausea and Vomiting Oxycodone HCl (Oxycodone Hcl Immed Release 5 Mg Tablet) 20 mg PO BID PRN PRN Reason: Pain, Moderate (Pain Scale 4-6 Pharmacy Consult (Consult Rx Perform Med Rec) 1 each MISCELLANE ONCE PRN PRN Reason: Consult order Pharmacy Consult (Consult Rx Perform Med Rec) 1 each MISCELLANE ONCE PRN PRN Reason: Consult order Sodium Chloride (0.9 % Sodium Chloride Flush 3 Ml Syringe) 3 ml IVFLUSH QSHIFT [facility] Last Admin: 10/28/21 08:52 Dose: 3 ml Documented by: MUNIR Vancomycin HCl (Vancomycin Hcl Oral Solution 125 Mg/5 Ml Soln.Recon) 125 mg PO Q6H [facility] Last Admin: 10/28/21 08:53 Dose: 125 mg Documented by: MUNIR Vitamin D (Cholecalciferol (Vitamin D3) 25 Mcg Tablet) 50 mcg PO DAILY [facility] Last Admin: 10/28/21 08:51 Dose: 50 mcg Documented by: MUNIR Labs CBC & Chem 7: 10/28/21 05:49 10/28/21 05:49 Labs: Laboratory Results - last 24 hr 10/28/21 10/28/21 05:49 05:49 MCV 93.0 MCH 29.4 MCHC 31.6 RDW 14.0 Plt Count 197 MPV 10.0 Absolute Nucleated RBC 0.000 Nucleated RBC % (auto) 0.0 Anion Gap 12 Estim Creat Clear Calc 18.5 Estimated GFR 24 Random Glucose 95 Calcium 8.5 Magnesium 2.2 Total Bilirubin 0.3 Direct Bilirubin < 0.2 AST 21 ALT 21 Alkaline Phosphatase 54 D Total Protein 5.7 L D Albumin 3.3 L D Microbiology Microbiology Results: Microbiology 10/25/21 10:50 Stool Culture - Final Stool 10/24/21 Unknown Urine Culture - Final Urine clean catch - Urine pacheco top Morganella morganii [facility] [place] Assessment and Plan (1) Abnormal CT of the abdomen: Status: Acute (2) UTI (urinary tract infection): Status: Acute (3) Urinary retention: Status: Acute (4) Enteritis: Status: Acute Plan 85-year-old male with past medical history of CVA, COPD, BPH presents the hospital with abdominal pain as well as chest pain.? Found to have urinary retention, UTI, as well as enteritis 1.? abdominal pain:-? acute abdominal pain secondary to enteritis( see ct abd). abd ct -? portal edis gas -seen by surgery: Patient abdomen is benign, portal gas thought to be secondary to possibly enteritis. low sodium diet, stool studies -possible c diff dirrhae and abd pain somewhat improving continue po vanco as well as p.o. Flagyl 2.possible sepsis sec UTI/enteritis -? has leukocytosis, positive UA lactic acidsois resolved -? complicated by urinary retention -? will treat with IV antibiotic -? follow cultures 3.chest pain-? troponin negative x2 -? EKG reviewed by transit mix operator shows sinus rhythm with PACs, no evidence of AFib possible noncardiac, cardiology saw the patient thought to be noncardiac chest pain. Possible GI related pain. Echo pending. 4.? KARLA on CKD-? no previous creatinine for comparison but has elevated BUN and creatinine with improvement after fluid resuscitation Worsening of renal failure possibly out related to bladder obstruction and distended-please see CT abdomen. KARLA possibly related to obstruction rather than sepsis. -? will continue fluids -? follow BMP Patient may need Raymond, avoid nephrotoxic medications, urology consult. 5.? urinary retention -? most likely multifactorial secondary to BPH, UTI, as well as abnormality seen on abdominal CT -? patient currently has Raymond catheter in, will continue -? urology consult-S/P raymond for 5 day and then voiding trial urology following 6.? COPD - ? not in exacerbation -? continue home inhalers 7.? history of CVA -? no new changes -? continue aspirin and statin 8.? hypertension -? stable -? continue home medications DVT ppx: lovenox Quality Stroke Does the patient have a stroke diagnosis?: No VTE Prior VTE?: No VTE Risk Level:: Medical - moderate - high VTE Device Contraindication: Treatment Not Indicated VTE Drug Contraindication: N/A - Med Ordered
[2021-10-28] MEDS: Enoxaparin Sodium 30 MG/0.3 ML SYRINGE SUBCUT (10:29)
[2021-10-28] MEDS: calcitrioL 0.25 MCG CAPSULE PO (10:29)
--- NOTE | 2021-10-28 11:06 | PM.PNCARD ---
Subjective Subjective Date of Service: 10/28/21 Interval history: He states that he feels much better. No specific complaints. From the cardiac standpoint, denies all cardiac symptoms. Review of Systems Review of Systems Yes all other systems are reviewed and are negative Cardiovascular: Reports as per HPI, Reports no additional cardiovascular complaints, Denies acrocyanosis, Denies cool extremities, Denies chest pain, Denies diaphoresis, Denies syncope, Denies claudication, Denies leg edema, Denies lightheadedness, Denies palpitations and Denies dyspnea Respiratory: Denies dyspnea Denies syncope Endocrine: Denies palpitations Physical Exam Vital Signs: Last Vital Signs Temp 98.1 F 10/28/21 07:55 Pulse 69 10/28/21 07:55 Resp 18 10/28/21 07:55 BP 133/62 10/28/21 07:55 Pulse Ox 95 10/28/21 07:55 BMI result Body Mass Index 20.5 Const General: comfortable HENMT Other: Unremarkable Neck Neck: Yes normal visual inspection Chest Chest palpation & inspection: normal inspection of the chest Resp Auscultation: clear to auscultation bilaterally Cardio Palpation: normal PMI Heart sounds: S1 normal heart sound present, S2 normal heart sound present, no gallops, Murmur heart sound present (2/6 YANG aortic area) and no rubs GI Palpation (GI): Soft to palpation Back/Spine/Pelvis Other: unremarkable Skin Lesions: other Neuro General: other Extrem General: Yes other Psych Mental Status: other Objective Labs and Meds Result diagrams: 10/28/21 05:49 10/28/21 05:49 Lab results: Laboratory Results - last 24 hr 10/28/21 10/28/21 05:49 05:49 WBC 10.8 RBC 3.88 L Hgb 11.4 L Hct 36.1 L MCV 93.0 MCH 29.4 MCHC 31.6 RDW 14.0 Plt Count 197 MPV 10.0 Absolute Nucleated RBC 0.000 Nucleated RBC % (auto) 0.0 Sodium 136 Potassium 4.5 Chloride 107 Carbon Dioxide 22 Anion Gap 12 BUN 29 H Creatinine 2.61 H Estim Creat Clear Calc 18.5 Estimated GFR 24 Random Glucose 95 Calcium 8.5 Magnesium 2.2 Total Bilirubin 0.3 Direct Bilirubin < 0.2 AST 21 ALT 21 Alkaline Phosphatase 54 D Total Protein 5.7 L D Albumin 3.3 L D Progress Note: A&P Assessment and plan (1) Status post transcatheter aortic valve replacement (TAVR) using bioprosthesis: Status: Acute (2) Atherosclerotic cardiovascular disease: Status: Acute (3) NICM (nonischemic cardiomyopathy): Status: Acute (4) NSVT (nonsustained ventricular tachycardia): Status: Acute Plan High sensitivity troponins are within range-18.3 and 24.6. EKG has some T inversions but no clear-cut ischemic changes. Cardiac catheterization from 2017- circumflex and RCA-ostial 50% stenosis but otherwise unremarkable. Subsequently, he underwent#26 Shorty Fung transcatheter aortic valve replacement. Last echocardiogram from [facility] from 2017 shows LVEF of 20-25% with severe hypokinesis globally. Severely dilated left atrium. TAVR itself was functioning normally. Echocardiogram this admission, LVEF 63%. Normally functioning bioprosthetic aortic valve. Overall, he has lot of cardiac and vascular issues but the current admission seems to be more other GI in nature. Chest pain is also likely from this. Doubt any clear cardiac etiology for the chest pain. It seems that C diff has been reported positive. That might explain all his GI symptoms. With regard to PVCs/NSVT, no specific management as well as he has normal LVEF. He is already on beta-blockers and that can be continued- QTc on EKG 470ms. There is also [place] prolongation at 294ms, and hence use low dose. Chronic cardiac issues to be followed up through his own brine tank operator from [facility]. Fall Risk Details Current Medications: Current Medications Acetaminophen (Acetaminophen 325 Mg Tablet) 650 mg PO Q6H PRN PRN Reason: Pain, Mild (Pain Scale 1-3) Aspirin (Aspirin Enteric Coated 81 Mg Tablet.) 81 mg PO DAILY [facility] Last Admin: 10/28/21 08:52 Dose: 81 mg Documented by: Atorvastatin Calcium (Atorvastatin Calcium 10 Mg Tablet) 10 mg PO BEDTIME [facility] Last Admin: 10/27/21 20:47 Dose: 10 mg Documented by: Calcitriol (Calcitriol 0.25 Mcg Capsule) 0.25 mcg PO Q2D [facility] Last Admin: 10/28/21 10:29 Dose: 0.25 mcg Documented by: Cyanocobalamin (Cyanocobalamin (Vitamin B-12) 500 Mcg Tablet) 1,500 mcg PO DAILY [facility] Last Admin: 10/28/21 08:52 Dose: 1,500 mcg Documented by: Docusate Sodium (Docusate Sodium 100 Mg Capsule) 100 mg PO DAILY PRN PRN Reason: Constipation Doxazosin Mesylate (Doxazosin Mesylate 2 Mg Tablet) 8 mg PO BEDTIME [facility]; Protocol Last Admin: 10/27/21 20:47 Dose: 8 mg Documented by: Enoxaparin Sodium (Enoxaparin Sodium 30 Mg/0.3 Ml Syringe) 30 mg SUBCUT Q24H [facility] Last Admin: 10/28/21 10:29 Dose: 30 mg Documented by: Ferrous Sulfate (Ferrous Sulfate 324 Mg Tablet.Dr) 324 mg PO BID [facility] Last Admin: 10/28/21 08:52 Dose: 324 mg Documented by: Finasteride (Finasteride 5 Mg Tablet) 5 mg PO DAILY [facility] Last Admin: 10/28/21 08:52 Dose: 5 mg Documented by: Hydralazine HCl (Hydralazine Hcl 10 Mg Tablet) 10 mg PO TID [facility]; Protocol Last Admin: 10/28/21 08:52 Dose: 10 mg Documented by: Levofloxacin (Levaquin) 250 mg in 50 mls @ 50 mls/hr IV Q24H [facility] Last Infusion: 10/27/21 16:38 Dose: Infused Documented by: Magnesium Oxide (Magnesium Oxide 400 Mg Tablet) 400 mg PO BIDPC [facility] Last Admin: 10/28/21 08:52 Dose: 400 mg Documented by: Metoprolol Tartrate (Metoprolol Tartrate 50 Mg Tablet) 50 mg PO BID [facility]; Protocol Last Admin: 10/28/21 08:52 Dose: 50 mg Documented by: Ondansetron HCl (Ondansetron Hcl 4 Mg/2 Ml Vial) 4 mg IVPUSH Q8H PRN PRN Reason: Nausea and Vomiting Oxycodone HCl (Oxycodone Hcl Immed Release 5 Mg Tablet) 20 mg PO BID PRN PRN Reason: Pain, Moderate (Pain Scale 4-6 Pharmacy Consult (Consult Rx Perform Med Rec) 1 each MISCELLANE ONCE PRN PRN Reason: Consult order Pharmacy Consult (Consult Rx Perform Med Rec) 1 each MISCELLANE ONCE PRN PRN Reason: Consult order Sodium Chloride (0.9 % Sodium Chloride Flush 3 Ml Syringe) 3 ml IVFLUSH QSHIFT [facility] Last Admin: 10/28/21 08:52 Dose: 3 ml Documented by: Vancomycin HCl (Vancomycin Hcl Oral Solution 125 Mg/5 Ml Soln.[facility]) 125 mg PO Q6H [facility] Last Admin: 10/28/21 08:53 Dose: 125 mg Documented by: Vitamin D (Cholecalciferol (Vitamin D3) 25 Mcg Tablet) 50 mcg PO DAILY [facility] Last Admin: 10/28/21 08:51 Dose: 50 mcg Documented by: Time Spent With Patient Time: Total time spent is greater than 50% in coordination of care (as documented) at patient's floor/unit and/or counseling patient: Time with patient: less than 15 minutes Progress Note: Quality Stroke Does the patient have a stroke diagnosis?: No Procedures Date of Service Date of Service: 10/28/21
[2021-10-28 11:39] VITALS: BP 135/60; PULSE 58; RESP 18; TEMP 36.6; O2SAT 96
--- NOTE | 2021-10-28 14:51 | MHC.CM.PN ---
Addendum entered by Guerda Pablo 10/29/21 14:14: patient and doctor now wanting vna for nrusinjg with new raymond cath sent referrals to [facility] staff[facility] , [facility], [facility] no insurance contract . this was explained to patient and his son , rafa reported that after teaching from the bedside nurse they felt more comforatlkbel , informed the staff nurse and hospitlsit . Original Note: PT WILL BE DISCHARGED HOME TODAY CM CALLED PTS SON, EMILY [phone] AND INFORMED HIM OF PENDING DC. HE WILL TRANSPORT PT ONCE HE IS READY CM MET WITH PT TO DISCUSS DC PLAN PT REPORTS HE IS NOT INTERESTED IN VNA HIS SON AND [id number] ARE IN THE HOME WITH HIM. HE WILL DC HOME WITH NO SERVICES
[2021-10-28 15:17] VITALS: BP 155/71; PULSE 58; RESP 17; TEMP 37.2; O2SAT 97
[2021-10-28] MEDS: levoFLOXacin/D5W 250 MG/50 ML PIGGYBACK 50 MG IV (15:23)
--- NOTE | 2021-10-28 15:24 | P.DS_ITS ---
DS: Providers Provider Date of Service: 10/28/21 Date of admission: 10/24/21 22:18 Primary care physician: Renetta Hahn MD Consults: 10/24/21 22:18 Consult to Cardiology Routine Consulting Provider: Danial Carmen Reason for consultation: New onset A fib Has provider been notified: No 10/25/21 06:13 Consult to Urology Routine Consulting Provider: Paulie Maciel Reason for consultation: abnormal bladded on CT Has provider been notified: No 10/25/21 07:49 Consult to General Surgery Routine Consulting Provider: [facility] Reason for consultation: Enteritis/ct abd-Abnormal small bowel abnormal/portal gas Has provider been notified: No 10/25/21 08:04 Consult to Infectious Diseases Routine Consulting Provider: Rebeca Montague Reason for consultation: Enteritis/uti Has provider been notified: No DS: Diagnosis Discharge Diagnosis (1) Abnormal CT of the abdomen: Status: Acute (2) UTI (urinary tract infection): Status: Acute (3) Urinary retention: Status: Acute (4) Enteritis: Status: Acute DS: Summary Hospital Course Hospital Course: HPI:85-year-old male with past medical history of CVA,? aortic valve replacement, COPD, CKD who presents to the hospital with complaints of abdominal pain as well as midsternal chest pain.? Patient reports that his symptoms started the night before, worsened over the day.? He has had nausea and 1 episode of vomiting, no fever some chills.? Patient reports midsternal chest pain is severe, nonradiating, constant, stabbing pain.? He denies having any palpitations.? No change in vision, he has history of CVA with chronic weakness on the right upper extremity, no new weakness numbness or tingling.? He denies any cough, no shortness of breath. ?in regards to the abdominal pain, localized to the lower abdomen, nonradiating, 8/10, constant, not associated with any alleviating or exacerbating factors.? Patient reports that he has had decreased urinary output for the past 24 hours.? He denies any dysuria, urgency, or frequency. ? No lower extremity edema. ? On arrival to the ED patient hemodynamically stable with no significant abnormal vitals Labs are significant for? WBC count of 16.2, hemoglobin of 12.9, initial potassium of 5.7 that resolved 4.3 after repeat labs, BUN of 53, creatinine of 2.93 that improved to 2.75 after IV fluids, BNP of 634, UA that is positive for nitrites, leukocyte Estrace and WBC. ? Abdomen pelvic CT shows abnormal small bowel in the left upper quadrant with equalization of other small bowels with associated portal venous gas, this may be related to enteritis or other inflammatory process.? The bladder is grossly abnormal with trabeculation and mucosal abnormalities cannot be excluded. ? Patient was also found to have urinary retention with? Raymond catheter draining more than 700 cc of urine EKG showed Sinus rhythm with PACs and non-specific ST-Twave changes that were present on previous EKGs pt given IV abx, IV fluids and will be admitted for further management Hospital course: Patient was admitted because of diarrhea: Found to have bowel infection: Started on antibiotics seems to be improving will go home with by mouth antibiotic. Urinary infection: Patient started on antibiotics seems to be improving will go home on antibiotics for urinary infection also. Patient also had urinary retention/bladder trabeculations: Voiding trial was given yesterday patient failed voiding trial, urology recommended to place Raymond and voiding trial in 2 weeks out patiently. Discussed with patient to empty urinary catheter every 4 hours. and no urinary retention will able to go home, in addition added doxazosin and finasteride. Patient needs to follow-up with Urology out patiently. Chest pain jackman seen by Cardiology recommended further workup outpatient with his own blender laborer Dr. Rowe. Above was discussed with patient in detail he understand and in agreement with plan. Chest pain jackman seen by Cardiology recommended further workup outpatient with his own blender laborer Dr. Rowe. With regard to PVCs/NSVT, no specific m anagement as well as he has normal LVEF.? He is already on beta-blockers and that can be continued- QTc on EKG 470ms. There is also [place] prolongation at 294ms, and hence use low dose metoprolol(adjusted upon dischrage). Patient was seen by PT but patient refuses for PT at home. Above management discussed with the patient in detail length he understand and in agreement with the above plan, time spent 50 minutes and 50% time spent on counseling. Significant findings: As above. Procedures performed: None. Treatment and response: As above. Complications: None. Time Spent with Patient Time attestation: Total time spent providing and/or coordinating discharge services: Discharge coordination time: Greater than 30 minutes Quality: Stroke Does the patient have a stroke diagnosis?: No Physical Exam 2 Vital Signs: Vital Signs: Last Vital Signs Temp 99.0 F 10/28/21 15:17 Pulse 58 10/28/21 15:17 Resp 17 10/28/21 15:17 BP 155/71 H 10/28/21 15:17 Pulse Ox 97 10/28/21 15:17 BMI result Body Mass Index 20.5 Appearance: Alert.? Oriented X3.? Eyes: Pupils equal, round and reactive to light.? Sclera nonicteric.? ENT: Pharynx normal.? Moist mucous membranes. cvs: rrr, [id number] , no murmur res: clear to auscultation ,no rhonchii or wheezing abd: no rebound or guarding ,nt , bs present. Gu: has raymond ext pulses present , no cyanosis . neuro: axo3 , nonfocal. DS: Data Data Completed and Pending Labs on day of discharge: Laboratory Results - last 24 hr 10/28/21 10/28/21 05:49 05:49 WBC 10.8 RBC 3.88 L Hgb 11.4 L Hct 36.1 L MCV 93.0 MCH 29.4 MCHC 31.6 RDW 14.0 Plt Count 197 MPV 10.0 Absolute Nucleated RBC 0.000 Nucleated RBC % (auto) 0.0 Sodium 136 Potassium 4.5 Chloride 107 Carbon Dioxide 22 Anion Gap 12 BUN 29 H Creatinine 2.61 H Estim Creat Clear Calc 18.5 Estimated GFR 24 Random Glucose 95 Calcium 8.5 Magnesium 2.2 Total Bilirubin 0.3 Direct Bilirubin < 0.2 AST 21 ALT 21 Alkaline Phosphatase 54 D Total Protein 5.7 L D Albumin 3.3 L D Preliminary micro results at discharge 10/24/21 17:56 Blood Culture - Preliminary Blood - Venous No growth after 48 hours. 10/24/21 17:56 Blood Culture - Preliminary Blood - Venous No growth after 48 hours. Discharge Plan Discharge Patient Disposition: Home Health Service Discharge Diagnosis: C diff colitis , chest pain , uti. Referrals: Renetta Hahn MD [Primary Care Provider] - 1 Week Discharge Medications: New doxazosin 2 mg Tablet 8 mg PO BEDTIME Qty: 30 0RF Protocol: Hold for SBP< HOLD for SBP < : 90 finasteride [Proscar] 5 mg Tablet 5 mg PO DAILY Qty: 30 0RF levofloxacin 250 mg tablet 250 mg PO DAILY Qty: 12 0RF magnesium oxide 400 mg (241.3 mg magnesium) Tablet 400 mg PO BIDPC Qty: 14 0RF Firvanq 25 mg/mL Recon Soln 125 mg PO Q6H 9 Days Qty: 180 0RF Continued hydralazine 10 mg tablet 1 tab PO TID 0RF atorvastatin 10 mg tablet 1 tab PO BEDTIME 0RF metoprolol tartrate 25 mg tablet 1 tab PO BID 0RF oxycodone 20 mg tablet 1 tab PO BID PRN (Reason: Pain) 0RF aspirin [Aspir-81] 81 mg Tablet,Delayed Release (Dr/Ec) 81 mg PO DAILY 0RF Vitamin B-12 1,500 mcg Tablet Extended Release 1,500 mcg PO DAILY 0RF calcitriol 0.25 mcg Capsule 0.25 mcg PO Q2D 0RF ferrous sulfate 324 mg (65 mg iron) Tablet,Delayed Release (Dr/Ec) 648 mg PO DAILY 0RF cholecalciferol (vitamin D3) [Vitamin D3] 50 mcg (2,000 unit) Tablet 50 mcg PO DAILY 0RF Discontinued tamsulosin 0.4 mg capsule 1 cap PO DAILY 0RF Discharge Orders: Discharge Order (Routine); Ordered 10/29/21 Ordered By: Nayan Barnett Diet: advance to usual diet Activity on Discharge: As tolerated Stand Alone Forms: Patient Portal Discharge page Care Plan Goals: Patient was admitted because of diarrhea: Found to have bowel infection: Started on antibiotics seems to be improving will go home with by mouth antibiotic. Urinary infection: Patient started on antibiotics seems to be improving will go home on antibiotics for urinary infection also. Patient also had urinary retention/bladder trabeculations: Voiding trial was given yesterday patient failed voiding trial, urology recommended to place Raymond and voiding trial in 2 weeks out patiently. Discussed with patient to empty urinary catheter every 4 hours. and no urinary retention will able to go home, in addition added doxazosin and finasteride. Patient needs to follow-up with Urology out patiently. Chest pain jackman seen by Cardiology recommended further workup outpatient with his own blender laborer Dr. Rowe. Above was discussed with patient in detail he understand and in agreement with plan. Health Concerns: As above. Plan of Treatment: As above. Assessment: As above.
--- NOTE | 2021-10-28 17:53 | PC.NURSE ---
Taveras removed at 1220. Pt has not voided yet. Pt does not feel full or have the urge to void at this time. Pt has had approximately 600ml po intake. will monitor
[2021-10-28 19:36] VITALS: BP 149/65; PULSE 66; RESP 18; TEMP 36.8; O2SAT 100
[2021-10-28] MEDS: Doxazosin Mesylate 2 MG TABLET 8 MG PO (19:52)
[2021-10-28] MEDS: Metoprolol Tartrate 25 MG TABLET PO (19:53)
[2021-10-28] MEDS: Atorvastatin Calcium 10 MG TABLET PO (19:53)
[2021-10-29] VITALS: BP 156/67; RESP 17; TEMP 36.5; O2SAT 97
[2021-10-29] MEDS: vancomycin HCL Oral Solution 125 MG/5 ML SOLN.RECON PO ×2 (03:25→08:23)
[2021-10-29 03:59] VITALS: BP 154/64; PULSE 65; RESP 17; TEMP 36.6; O2SAT 95
[2021-10-29 06:59] VITALS: BP 172/70; PULSE 75; RESP 18; TEMP 36.9; O2SAT 98
[2021-10-29] MEDS: Cyanocobalamin (Vitamin B-12) 500 MCG TABLET 1500 MCG PO (08:22)
[2021-10-29] MEDS: Aspirin Enteric Coated 81 MG TABLET.DR PO (08:23)
[2021-10-29] MEDS: Ferrous Sulfate 324 MG TABLET.DR PO (08:23)
[2021-10-29] MEDS: Cholecalciferol (Vitamin D3) 25 MCG TABLET 50 MCG PO (08:23)
[2021-10-29] MEDS: Magnesium Oxide 400 MG TABLET PO (08:24)
[2021-10-29] MEDS: hydrALAZINE HCl 10 MG TABLET 20 MG PO (08:24)
[2021-10-29] MEDS: Metoprolol Tartrate 25 MG TABLET PO (08:25)
[2021-10-29] MEDS: Finasteride 5 MG TABLET PO (08:25)
[2021-10-29] MEDS: 0.9 % Sodium Chloride Flush 3 ML SYRINGE IVFLUSH (08:26)
--- NOTE | 2021-10-29 11:34 | P.F2F_ITS ---
Service Date Service Date: 10/29/21 Encounter Date of encounter: 10/29/21 Encounter: Diarrhea, urinary retention Reasons for Services Signs and symptoms assessed: C diff colitis, UTI, urinary retention. Overseeing Care: Renetta Hahn Homebound: Leaving the home is medically contraindicated at this time without the asist of a device and/or another person due th the listed conditions above and below. Reason homebound: weakness related to hospital stay Homebound supporting statement: Patient has multiple comorbidities including C diff, UTI, urinary retention and also generalized weak post hospitalization, also need help to go to appointments Certification: Based on the above findings, I certify that this patient is confined to the home and needs intermittent intermediate care, physical therapy and/or speech therapy, or continues to need occupational therapy. The patient is under my care, and I have initiated the establishment of the plan of care. The patient will be followed by a physician who will periodically review the plan of care.
--- NOTE | 2021-10-29 14:45 | PC.NURSE ---
Pt instructed on clamping raymond, emptying raymond every 4 hours, and given raymond care discharge instructions. Verbalizes understanding as well as able to demonstrate how to clamp and attach to nighttime catheter bag. Son at bedside and verbalized understanding. Instructed to make followup appointments with Urology, cardiology and primary care.
== END 2021-10-29 14:52 | disposition home health service (06) | DRG 372 ==
LOC: HO.ED 18:05 → HO.EDOVER 22:37 → HO.S3 10-27 01:42
PROVIDERS: Physician Assistant; Admitting Provider Internal Medicine; Emergency Provider Emergency Medicine; PCP Internal Medicine; Visit Provider Internal Medicine
DX: A04.72 Enterocolitis due to Clostridium difficile, not specified as recurrent (principal); N39.0 Urinary tract infection, site not specified; N17.9 Acute kidney failure, unspecified; I42.8 Other cardiomyopathies; I47.1 Supraventricular tachycardia; I48.91 Unspecified atrial fibrillation; E87.5 Hyperkalemia; N18.9 Chronic kidney disease, unspecified; I12.9 Hypertensive chronic kidney disease with stage 1 through stage 4 chronic kidney disease, or unspecified chronic kidney disease; I25.10 Atherosclerotic heart disease of native coronary artery without angina pectoris; N40.1 Benign prostatic hyperplasia with lower urinary tract symptoms; R33.8 Other retention of urine; F17.210 Nicotine dependence, cigarettes, uncomplicated; Z71.6 Tobacco abuse counseling; Z86.73 Personal history of transient ischemic attack (TIA), and cerebral infarction without residual deficits; Z95.2 Presence of prosthetic heart valve; Z20.822 Contact with and (suspected) exposure to COVID-19; Z79.82 Long term (current) use of aspirin; Z79.899 Other long term (current) drug therapy; Z66 Do not resuscitate
CPT/HCPCS: 36415; 71046; 74176; 80048; 80076; 81001; 81003; 83605; 83690; 83735; 83880; 84132; 84484; 85025; 85027; 87040; 87045; 87046; 87086; 87088; 87186; 87324; 87493; 87635; 89055; 93005; 93306; 96365; 96375; 97162; 99285; C1758; J0696; J1650; J1956; J2405; J2543; J3475

== ENCOUNTER 2021-11-14 15:53 | Outpatient (REF) | payer MEDICARE, SELFPAY ==
[2021-11-14 16:43] LABS: Blood Urea Nitrogen 47 mg/dL (9-16); Estimated Glomerular Filt Rate 18
== END 2021-11-14 15:54 | disposition home or self-care (01) ==
LOC: HO.LAB 15:53
PROVIDERS: PCP Internal Medicine; Visit Provider Urology
DX: R33.9 Retention of urine, unspecified (principal)
CPT/HCPCS: 36415; 82565; 84520

== ENCOUNTER → 2021-11-21 09:41 | Outpatient (BNVA) | payer MEDICARE, SELFPAY | PROVIDERS: PCP Internal Medicine; Visit Provider Urology | DX: N40.1 Benign prostatic hyperplasia with lower urinary tract symptoms (principal); R33.9 Retention of urine, unspecified | CPT/HCPCS: 51700; 51702 ==

== ENCOUNTER → 2021-12-20 10:41 | Outpatient (BNVA) | payer MEDICARE, SELFPAY | PROVIDERS: PCP Internal Medicine; Visit Provider Urology | DX: N40.1 Benign prostatic hyperplasia with lower urinary tract symptoms (principal); R33.9 Retention of urine, unspecified | CPT/HCPCS: 51702; 52000; 99212 ==

== ENCOUNTER → 2022-02-05 08:35 | Outpatient (BNVA) | payer MEDICARE, SELFPAY | PROVIDERS: PCP Internal Medicine; Visit Provider Urology | DX: R33.9 Retention of urine, unspecified (principal) | CPT/HCPCS: Q3014 ==

== ENCOUNTER 2022-02-11 10:38 | Day surgery (SDC) | payer MEDICARE, SELFPAY ==
[2022-02-04 18:34] VITALS: BMI 20.3
--- NOTE | 2022-02-08 12:18 | P.CONAN_ITS ---
Documented by User: Linda Obrien NP 02/08/22 12:22 HPI - Anesthesia Eval Consult details Narrative: 86yo M for Insertion Suprapubic Tube Optimized per cardiology [facility] Active Problems Active Problems: All Active Problems (Updated 02/07/22 @ 15:18 by Paulie Maciel MD) Urinary retention with incomplete bladder emptying (Acute) New onset a-fib (Acute) Abdominal pain (Acute) Acute hyperkalemia (Acute) Acute kidney injury superimposed on CKD (Acute) Enteritis (Acute) Abnormal CT scan, bladder (Acute) Urinary retention (Acute) UTI (urinary tract infection) (Acute) Chest pain (Acute) Status post transcatheter aortic valve replacement (TAVR) using bioprosthesis (Acute) Atherosclerotic cardiovascular disease (Acute) NICM (nonischemic cardiomyopathy) (Acute) NSVT (nonsustained ventricular tachycardia) (Acute) BPH (benign prostatic hyperplasia) (Acute) Abnormal CT of the abdomen (Acute) Past Medical History Medical History Afib Anemia CAD (coronary artery disease) CKD (chronic kidney disease) COPD (chronic obstructive pulmonary disease) CVA (cerebral vascular accident) Hyperlipidemia Hyperparathyroidism Hypertension NSTEMI (non-ST elevated myocardial infarction) Smoker Urinary retention Family History Family History Mother CHF (congestive heart failure) Surgical History Surgical History H/O aortic valve replacement with porcine valve History of right-sided carotid endarterectomy S/P AVR (aortic valve replacement) Social History Social History Household Members: Family Housing: House Alcohol intake: never Patient Tobacco Use Status: Current everyday Tobacco user Tobacco use type: Cigarette Cigarette Packs Per Day: 1 Cigarettes Per Day: 20.0 Years Smoked: 65 Advance Directives Date on File: 10/25/21 Current occupational status: retired Meds Allergies Allergy/AdvReac Type Severity Reaction Status Date / Time No Known Allergies Allergy Verified 02/05/22 10:52 [No Known Allergies*] Home Medications Medication Instructions Recorded Confirmed Last Taken Type aspirin 81 mg tablet,delayed 81 mg PO DAILY 10/24/21 02/11/22 02/04/22 History release atorvastatin 10 mg tablet 1 tab PO BEDTIME 10/24/21 02/04/22 10/23/21 History calcitriol 0.25 mcg capsule 0.25 mcg PO Q2D 10/24/21 02/04/22 Unknown History cholecalciferol (vitamin D3) 50 50 mcg PO DAILY 10/24/21 02/04/22 10/24/21 History mcg (2,000 unit) tablet (Vitamin D3) cyanocobalamin (vitamin B-12) 1,500 mcg PO DAILY 10/24/21 02/04/22 10/24/21 History 1,500 mcg tablet,extended release ferrous sulfate 324 mg (65 mg 648 mg PO DAILY 10/24/21 02/04/22 10/24/21 History iron) tablet,delayed release hydralazine 10 mg tablet 1 tab PO TID 10/24/21 02/11/22 02/11/22 History metoprolol tartrate 25 mg tablet 1 tab PO BID 10/24/21 02/11/22 02/11/22 History oxycodone 20 mg tablet 1 tab PO BID PRN Pain 10/24/21 02/04/22 10/24/21 History tamsulosin 0.4 mg capsule 0.4 mg PO DAILY 12/20/21 02/04/22 Unknown History Exam Exam Date and Time: February 08, 2022 1218 Height,Weight and Vital Signs: Height 5 ft 8 in Weight 60.781 kg Pertinent Lab Results Pertinent Lab Results: Laboratory Tests 10/28/21 10/28/21 11/14/21 05:49 05:49 16:02 WBC 10.8 Hgb 11.4 L Hct 36.1 L Plt Count 197 Sodium 136 Potassium 4.5 Chloride 107 Carbon Dioxide 22 BUN 47 H D Creatinine 3.31 H Narrative Narrative: EKG 10/2021 Vent. Rate : 060 BPM ? ? Atrial Rate : 060 BPM ?? P-R Int : 294 ms? QRS Dur : 098 ms ? ? QT Int : 470 ms ? ? ? P-R-T Axes : 069 005 077 degrees ?? QTc Int : 470 ms ? Sinus rhythm with marked sinus arrhythmia with 1st degree A-V block Blocked PAC Premature ventricular complexes vs aberrantly conducted beat Septal infarct (cited on or before 23-JAN-2017) Abnormal ECG When compared with ECG of 24-OCT-2021 14:28, MT interval has increased Questionable change in initial forces of Anteroseptal leads - could be due to lead placement ECHO 10/2021 Conclusions: - The left ventricular systolic function is normal.? The ? calculated ejection fraction is 63% by biplane method. ? - A bioprosthetic aortic valve is present.? The prosthetic aortic valve appears to be functioning normally.? Findings Left Ventricle Normal left ventricular cavity size.? There is mildly increased left ventricular wall thickness.? The left ventricular systolic function is normal.? The calculated ejection fraction is 63% by biplane method.? Evidence suggests grade I (mild) diastolic dysfunction.? (frequent ectopy). Assessment and Plan Assessment Anesthesia Assessment: Chart Reviewed Documented by User: Mannie Carlos MD 02/11/22 16:42 HPI - Anesthesia Eval Consult details Narrative: 86yo M for Insertion Suprapubic Tube TAVR Optimized per cardiology, BP medications being adjusted by PCP . Patient's Blood pressure was high in pre -op , discussed the case with the surgeon , this is urgent procedure as per him . We will proceed with the procedure . Patient denied any symptoms at all and acknowledged that his blood pressure has been higher recently . I counselled him to contact the PCP at the earliest and let him know that BP has been still high as he may need further adjustment of the anti-hypertensives . CvA , right sided weakness PMFSH Past Medical History Medical History Afib Anemia CAD (coronary artery disease) CKD (chronic kidney disease) COPD (chronic obstructive pulmonary disease) CVA (cerebral vascular accident) Hyperlipidemia Hyperparathyroidism Hypertension NSTEMI (non-ST elevated myocardial infarction) Smoker Urinary retention Family History Family History Mother CHF (congestive heart failure) Family history of problems with anesthesia: No Surgical History Surgical History H/O aortic valve replacement with porcine valve History of right-sided carotid endarterectomy S/P AVR (aortic valve replacement) History of Problems with Anesthesia: No Social History Social History Household Members: Family Housing: House Alcohol intake: never Patient Tobacco Use Status: Current everyday Tobacco user Tobacco use type: Cigarette Cigarette Packs Per Day: 1 Cigarettes Per Day: 20.0 Years Smoked: 65 Advance Directives Date on File: 10/25/21 Current occupational status: retired [employer] Allergies Allergy/AdvReac Type Severity Reaction Status Date / Time No Known Allergies Allergy Verified 02/05/22 10:52 [No Known Allergies*] Home Medications Medication Instructions Recorded Confirmed Last Taken Type aspirin 81 mg tablet,delayed 81 mg PO DAILY 10/24/21 02/11/22 02/04/22 History release atorvastatin 10 mg tablet 1 tab PO BEDTIME 10/24/21 02/04/22 10/23/21 History calcitriol 0.25 mcg capsule 0.25 mcg PO Q2D 10/24/21 02/04/22 Unknown History cholecalciferol (vitamin D3) 50 50 mcg PO DAILY 10/24/21 02/04/22 10/24/21 History mcg (2,000 unit) tablet (Vitamin D3) cyanocobalamin (vitamin B-12) 1,500 mcg PO DAILY 10/24/21 02/04/22 10/24/21 History 1,500 mcg tablet,extended release ferrous sulfate 324 mg (65 mg 648 mg PO DAILY 10/24/21 02/04/22 10/24/21 History iron) tablet,delayed release hydralazine 10 mg tablet 1 tab PO TID 10/24/21 02/11/22 02/11/22 History metoprolol tartrate 25 mg tablet 1 tab PO BID 10/24/21 02/11/22 02/11/22 History oxycodone 20 mg tablet 1 tab PO BID PRN Pain 10/24/21 02/04/22 10/24/21 History tamsulosin 0.4 mg capsule 0.4 mg PO DAILY 12/20/21 02/04/22 Unknown History Exam Airway Mallampati Class: III TM Dist: >3cm Neck ROM: Full Denture: Upper and Lower Loose/Missing/Broken Teeth: Yes Heart: S1,S2 Lungs: b/l breath sounds Assessment and Plan Assessment Anesthesia Assessment: Anesthesia Plan Discussed Final Anesthetic Review Family History of Problems with Anesthesia: No History of Problems with Anesthesia: No NPO: Yes ASA Class: III Final Preanesthetic Review: Meds/Allgs Chart Reviewed, Consent Obtained/Reviewed and Anes Risks/Benef Reviewed Patient Risk: High Procedure Risk: Intermediate Anesthetic Plan Anesthetic Plan: MAC: Disposition: Standard PACU
[2022-02-11 11:07] VITALS: BP 198/66; PULSE 55; RESP 19; TEMP 36.6; O2SAT 98
[2022-02-11] MEDS: Lactated Ringers 1,000 ML 21 ML IVCONT (11:46)
--- NOTE | 2022-02-11 11:53 | MHC.SHP ---
Pre-Procedural Eval Section A Date of Service: 02/11/22 The patient is an INPATIENT: No Changes since office visit: No Cold of Flu in the past 2 weeks, No New Medical Problems, No Changes in Medication and No Patient answered all questions The History & Physical has been completed within 30 days and I have reviewed it.: Yes Section B Chief Complaint: Retention of urine, unspecified Details of Present Illness: plan for cystoscopy and suprapubic tube placement Allergies: Allergies Allergy/AdvReac Type Severity Reaction Status Date / Time No Known Allergies Allergy Verified 02/05/22 10:52 [No Known Allergies*] Review of Systems Sugical H&P ROS: Negative: Constitution, Cardiovascular, Respiratory, Neurological, Psychiatric, Hem-Onc, Allergic/Immunologic, Gastrointestinal, Genitourinary, Musculoskeletal, Integumentary, Endocrine and Eyes/Ears/Nose/Throat Exam Surgical H&P Exam: Normal: HEENT, Normal: Heart, Normal: Lungs, Normal: Extremities, Normal: Abdomen, Normal: Skin and Normal: Neurological Plan Diagnosis/Plan: Unchanged I have reviewed the history and physical and performed a pertinent physical examination on my patient. No changes have occurred unless specified.
--- NOTE | 2022-02-11 12:26 | W.PM.OPN ---
Operative Note Operative Note Date of Service: 02/11/22 Narrative: PreOperative Diagnosis:?neurogenic bladder Post Operative Diagnosis:?neurogenic bladder Procedure:? 1. Cystoscopy 2. Suprapubic tube placement Surgeon: Dr Paulie Maciel Anesthesia:?Sedation plus local Indications for procedure: On CIC for many years - no longer able to continue Procedure: After informed consent was verified the patient was brought to the operating room and placed in a supine position.? Anesthesia was administered per protocol. The patient was placed in a modified dorsal lithotomy position and prepped and draped in a sterile fashion. A safety pause was performed confirming patient identity, procedure and antibiotics. A 22 Mauritian cystoscope was inserted per urethra. Bladder was examined in its entirety. No abnormalities seen. Air bubble was located at the dome of the bladder. A finder needle was inserted 2 fingerbreaths above the symphysis pubis on the abdomen into the bladder.? The needle was visualized in the bladder via cystoscopy. Local anesthetic was infiltrated subcutaneously around the needle introduction site. A small, 1cm horizontal incision was made.? A trocar introducer was advanced through the abdominal wall into the bladder under visualization. The obturator was removed and a 16 Fr raymond catheter placed. 7cc was used to inflate the balloon. The external portion of the trocar was removed. Dressing was placed, the bladder was emptied, and a drainage bag was attached. The patient tolerated the procedure and was transferred in stable condition to the recovery area. Suprapubic tube will be changed in 1 month with a follow-up office visit.
[2022-02-11 12:34] VITALS: BP 149/61; PULSE 59; RESP 18; TEMP 36.9; O2SAT 97
[2022-02-11 12:49] VITALS: BP 184/67; PULSE 63; RESP 18; O2SAT 95
[2022-02-11 13:04] VITALS: BP 180/69; PULSE 61; RESP 18; O2SAT 95
[2022-02-11 13:19] VITALS: BP 173/78; PULSE 60; RESP 18; TEMP 36.9; O2SAT 95
== END 2022-02-11 13:47 | disposition home or self-care (01) ==
PROVIDERS: PCP Internal Medicine; Visit Provider Urology
PROC: (CPT 51102; principal; 2022-02-11 12:30)
DX: N40.1 Benign prostatic hyperplasia with lower urinary tract symptoms (principal); R33.8 Other retention of urine; N31.9 Neuromuscular dysfunction of bladder, unspecified; I12.9 Hypertensive chronic kidney disease with stage 1 through stage 4 chronic kidney disease, or unspecified chronic kidney disease; N18.30 Chronic kidney disease, stage 3 unspecified; I48.91 Unspecified atrial fibrillation; D64.9 Anemia, unspecified; I25.10 Atherosclerotic heart disease of native coronary artery without angina pectoris; I25.2 Old myocardial infarction; Z95.3 Presence of xenogenic heart valve; E78.5 Hyperlipidemia, unspecified; J44.9 Chronic obstructive pulmonary disease, unspecified; Z86.73 Personal history of transient ischemic attack (TIA), and cerebral infarction without residual deficits; Z79.01 Long term (current) use of anticoagulants; Z79.82 Long term (current) use of aspirin; Z79.899 Other long term (current) drug therapy; F17.210 Nicotine dependence, cigarettes, uncomplicated
CPT/HCPCS: 51102; J1956; J3010

== ENCOUNTER → 2022-03-13 10:17 | Outpatient (BNVA) | payer MEDICARE, SELFPAY | PROVIDERS: PCP Internal Medicine; Visit Provider Urology | DX: R33.9 Retention of urine, unspecified (principal) | CPT/HCPCS: 51701; 51705; 99212 ==

== ENCOUNTER 2022-04-17 08:16 | Day surgery (SDC) | payer MEDICARE, SELFPAY ==
[2022-04-11 10:35] VITALS: BMI 22.7
--- NOTE | 2022-04-11 14:47 | P.CONAN_ITS ---
Documented by User: Linda Obrien NP 04/11/22 14:48 HPI - Anesthesia Eval Consult details Narrative: 86yo M for Insertion Suprapubic Tube s/p same 03/2022 with TIVA. Optimized per cardiology prior [facility] Active Problems Active Problems: All Active Problems (Updated 04/11/22 @ 10:27 by Kristine Bob, RN) New onset a-fib (Acute) Abdominal pain (Acute) Acute hyperkalemia (Acute) Acute kidney injury superimposed on CKD (Acute) Enteritis (Acute) Abnormal CT scan, bladder (Acute) Urinary retention (Acute) UTI (urinary tract infection) (Acute) Chest pain (Acute) Status post transcatheter aortic valve replacement (TAVR) using bioprosthesis (Acute) Atherosclerotic cardiovascular disease (Acute) NICM (nonischemic cardiomyopathy) (Acute) NSVT (nonsustained ventricular tachycardia) (Acute) Urinary retention with incomplete bladder emptying (Acute) BPH (benign prostatic hyperplasia) (Acute) Abnormal CT of the abdomen (Acute) Past Medical History Medical History (Updated 04/11/22 @ 10:27 by Kristine Bob, MAI) Abnormal CT of the abdomen Afib Anemia BPH (benign prostatic hyperplasia) CAD (coronary artery disease) CKD (chronic kidney disease) COPD (chronic obstructive pulmonary disease) CVA (cerebral vascular accident) Taveras catheter in place [place] (hard of hearing) Hyperlipidemia Hyperparathyroidism Hypertension NSTEMI (non-ST elevated myocardial infarction) Smoker Spinal stenosis Urinary retention Family History Family History Mother CHF (congestive heart failure) Family history of problems with anesthesia: No Surgical History Surgical History (Updated 04/11/22 @ 10:24 by Kristine Bob RN) H/O aortic valve replacement with porcine valve History of right-sided carotid endarterectomy History of suprapubic catheter S/P AVR (aortic valve replacement) History of Problems with Anesthesia: No Social History Social History Household Members: Family Housing: House Are you a primary personal care attendant to a significant other at home: No Do you presently have visiting nurse or other home services: No Alcohol intake: never Patient Tobacco Use Status: Current everyday Tobacco user Tobacco use type: Cigarette Cigarette Packs Per Day: 1 Cigarettes Per Day: 20.0 Years Smoked: 65+ Smoked in Last 30 Days: Yes Use of substances other than those prescribed or required for medical reasons: No Have you been hit, kicked, punched, or otherwise hurt by someone within the past year? If so, by whom?: No Are you DNR?: No Advance Directives: Yes Advance Directives Information Provided: No Advance Directives on File: Yes Advance Directives Date on File: 10/25/21 Current occupational status: retired [employer] Allergies Allergy/AdvReac Type Severity Reaction Status Date / Time No Known Allergies Allergy Verified 03/13/22 10:21 [No Known Allergies*] Home Medications Medication Instructions Recorded Confirmed Last Taken Type aspirin 81 mg tablet,delayed 81 mg PO DAILY 10/24/21 04/11/22 02/04/22 History release atorvastatin 10 mg tablet 1 tab PO BEDTIME 10/24/21 04/11/22 10/23/21 History calcitriol 0.25 mcg capsule 0.25 mcg PO Q2D 10/24/21 04/11/22 Unknown History cholecalciferol (vitamin D3) 50 50 mcg PO DAILY 10/24/21 04/11/22 10/24/21 History mcg (2,000 unit) tablet (Vitamin D3) cyanocobalamin (vitamin B-12) 1,500 mcg PO DAILY 10/24/21 04/11/22 10/24/21 History 1,500 mcg tablet,extended release ferrous sulfate 324 mg (65 mg 648 mg PO DAILY 10/24/21 04/11/22 10/24/21 History iron) tablet,delayed release metoprolol tartrate 25 mg tablet 1 tab PO BID 10/24/21 04/11/22 02/11/22 History hydralazine 25 mg tablet 25 mg PO TID 03/13/22 04/11/22 Unknown History sodium bicarbonate 650 mg tablet 650 mg PO TID 03/13/22 04/11/22 Unknown History finasteride 5 mg tablet 1 tab PO DAILY 04/11/22 04/11/22 Unknown History oxycodone 20 mg tablet 1 tab PO QID PRN Pain 04/11/22 04/11/22 Unknown History Exam Exam Date and Time: April 11, 2022 1447 Height,Weight and Vital Signs: Height 5 ft 8 in Weight 67.78 kg Pertinent Lab Results Pertinent Lab Results: Laboratory Tests 10/28/21 10/28/21 11/14/21 05:49 05:49 16:02 WBC 10.8 Hgb 11.4 L Hct 36.1 L Plt Count 197 Sodium 136 Potassium 4.5 Chloride 107 Carbon Dioxide 22 BUN 47 H D Creatinine 3.31 H Narrative Narrative: EKG 10/2021 Vent. Rate : 060 BPM ? ? Atrial Rate : 060 BPM ?? P-R Int : 294 ms? QRS Dur : 098 ms ? ? QT Int : 470 ms ? ? ? P-R-T Axes : 069 005 077 degrees ?? QTc Int : 470 ms ? Sinus rhythm with marked sinus arrhythmia with 1st degree A-V block Blocked PAC Premature ventricular complexes vs aberrantly conducted beat Septal infarct (cited on or before 23-JAN-2017) Abnormal ECG When compared with ECG of 24-OCT-2021 14:28, [place] interval has increased Questionable change in initial forces of Anteroseptal leads - could be due to lead placement ECHO 10/2021 Conclusions: - The left ventricular systolic function is normal.? The ? calculated ejection fraction is 63% by biplane method. ? - A bioprosthetic aortic valve is present.? The prosthetic aortic valve appears to be functioning normally.? Findings Left Ventricle Normal left ventricular cavity size.? There is mildly increased left ventricular wall thickness.? The left ventricular systolic function is normal.? The calculated ejection fraction is 63% by biplane method.? Evidence suggests grade I (mild) diastolic dysfunction.? (frequent ectopy). Assessment and Plan Assessment Anesthesia Assessment: Chart Reviewed Final Anesthetic Review Family History of Problems with Anesthesia: No History of Problems with Anesthesia: No Documented by User: Kayleen Paz MD 04/17/22 10:27 [facility] Past Medical History Medical History (Updated 04/11/22 @ 10:27 by Kristine Bob RN) Abnormal CT of the abdomen Afib Anemia BPH (benign prostatic hyperplasia) CAD (coronary artery disease) CKD (chronic kidney disease) COPD (chronic obstructive pulmonary disease) CVA (cerebral vascular accident) Taveras catheter in place [place] (hard of hearing) Hyperlipidemia Hyperparathyroidism Hypertension NSTEMI (non-ST elevated myocardial infarction) Smoker Spinal stenosis Urinary retention Family History Family History Mother CHF (congestive heart failure) Surgical History Surgical History (Updated 04/11/22 @ 10:24 by Kristine Bob RN) H/O aortic valve replacement with porcine valve History of right-sided carotid endarterectomy History of suprapubic catheter S/P AVR (aortic valve replacement) Social History Social History Household Members: Family Housing: House Are you a primary personal care attendant to a significant other at home: No Do you presently have visiting nurse or other home services: No Alcohol intake: never Patient Tobacco Use Status: Current everyday Tobacco user Tobacco use type: Cigarette Cigarette Packs Per Day: 1 Cigarettes Per Day: 20.0 Years Smoked: 65+ Smoked in Last 30 Days: Yes Use of substances other than those prescribed or required for medical reasons: No Have you been hit, kicked, punched, or otherwise hurt by someone within the past year? If so, by whom?: No Are you DNR?: No Advance Directives: Yes Advance Directives Information Provided: No Advance Directives on File: Yes Advance Directives Date on File: 10/25/21 Current occupational status: retired Meds Allergies Allergy/AdvReac Type Severity Reaction Status Date / Time No Known Allergies Allergy Verified 03/13/22 10:21 [No Known Allergies*] Home Medications Medication Instructions Recorded Confirmed Last Taken Type aspirin 81 mg tablet,delayed 81 mg PO DAILY 10/24/21 04/11/22 02/04/22 History release atorvastatin 10 mg tablet 1 tab PO BEDTIME 10/24/21 04/11/22 10/23/21 History calcitriol 0.25 mcg capsule 0.25 mcg PO Q2D 10/24/21 04/11/22 Unknown History cholecalciferol (vitamin D3) 50 50 mcg PO DAILY 10/24/21 04/11/22 10/24/21 History mcg (2,000 unit) tablet (Vitamin D3) cyanocobalamin (vitamin B-12) 1,500 mcg PO DAILY 10/24/21 04/11/22 10/24/21 History 1,500 mcg tablet,extended release ferrous sulfate 324 mg (65 mg 648 mg PO DAILY 10/24/21 04/11/22 10/24/21 History iron) tablet,delayed release metoprolol tartrate 25 mg tablet 1 tab PO BID 10/24/21 04/11/22 02/11/22 History hydralazine 25 mg tablet 25 mg PO TID 03/13/22 04/11/22 Unknown History sodium bicarbonate 650 mg tablet 650 mg PO TID 03/13/22 04/11/22 Unknown History finasteride 5 mg tablet 1 tab PO DAILY 04/11/22 04/11/22 Unknown History oxycodone 20 mg tablet 1 tab PO QID PRN Pain 04/11/22 04/11/22 Unknown History Exam Airway Mallampati Class: III TM Dist: >3cm Neck ROM: Full Denture: Upper and Lower Assessment and Plan Final Anesthetic Review NPO: Yes ASA Class: III Final Preanesthetic Review: No Changes in Pt Med Stat, Meds/Allgs Chart Reviewed, Consent Obtained/Reviewed and Anes Risks/Benef Reviewed Patient Risk: Intermediate Procedure Risk: Low Anesthetic Plan Anesthetic Plan: MAC: Disposition: Standard PACU
[2022-04-17 09:22] VITALS: BP 187/66; PULSE 59; RESP 16; TEMP 36.2; O2SAT 96
[2022-04-17] MEDS: Lactated Ringers 1,000 ML 50 ML IVCONT (09:45)
--- NOTE | 2022-04-17 10:19 | MHC.SHP ---
Pre-Procedural Eval Section A Date of Service: 04/17/22 The patient is an INPATIENT: No Changes since office visit: No Cold of Flu in the past 2 weeks, No New Medical Problems, No Changes in Medication and No Patient answered all questions The History & Physical has been completed within 30 days and I have reviewed it.: Yes Section B Chief Complaint: Retention of urine, unspecified Details of Present Illness: retention Relevant Family History (Specify if Yes): No Relevant Social History: None Present Medications: see Short Stay Collaborative assessment Medical History: Significant History History of Previous Operations: Relevant previous surgery/procedure and date(s) Allergies: Allergies Allergy/AdvReac Type Severity Reaction Status Date / Time No Known Allergies Allergy Verified 03/13/22 10:21 [No Known Allergies*] Review of Systems Sugical H&P ROS: Negative: Constitution, Cardiovascular, Respiratory, Neurological, Psychiatric, Hem-Onc, Allergic/Immunologic, Gastrointestinal, Genitourinary, Musculoskeletal, Integumentary, Endocrine and Eyes/Ears/Nose/Throat Exam Surgical H&P Exam: Normal: HEENT, Normal: Heart, Normal: Lungs, Normal: Extremities, Normal: Abdomen, Normal: Skin and Normal: Neurological Plan Diagnosis/Plan: Unchanged (cystoscopy, suprapubic tube placement) I have reviewed the history and physical and performed a pertinent physical examination on my patient. No changes have occurred unless specified.
--- NOTE | 2022-04-17 11:18 | P.OP_ITS ---
Operative Note Operative Note Date of Service: 04/17/22 Narrative: PreOperative Diagnosis:?neurogenic bladder Post Operative Diagnosis:?neurogenic bladder Procedure:? 1. Cystoscopy 2. Suprapubic tube placement Surgeon: Dr Paulie Maciel Anesthesia:?Sedation plus local Indications for procedure: retention Procedure: After informed consent was verified the patient was brought to the operating room and placed in a supine position.? Anesthesia was administered per protocol. The patient was placed in a modified dorsal lithotomy position and prepped and draped in a sterile fashion. A safety pause was performed confirming patient identity, procedure and antibiotics. A 22 Vincentian cystoscope was inserted per urethra. Bladder was examined in its en tirety. No abnormalities seen. Air bubble was located at the dome of the bladder. A finder needle was inserted 2 fingerbreaths above the symphysis pubis on the abdomen into the bladder.? The needle was visualized in the bladder via cystoscopy. Local anesthetic was infiltrated subcutaneously around the needle introduction site. A small, 1cm horizontal incision was made.? A trocar introducer was a dvanced through the abdominal wall into the bladder under visualization. The obturator was removed and a 16 Fr raymond catheter placed. 7cc was used to inflate the balloon. The external portion of the trocar was removed. Dressing was placed, the bladder was emptied, and a drainage bag was attached. The patient tolerated the procedure and was transferred in stable condition to the recovery area. Suprapubic tube will be changed in 1 month with a follow-up office visit.
[2022-04-17 11:33] VITALS: BP 175/58; PULSE 55; RESP 18; TEMP 36.1; O2SAT 96
[2022-04-17 11:45] VITALS: BP 189/56; PULSE 55; RESP 20; TEMP 36.1; O2SAT 96
[2022-04-17 12:00] VITALS: BP 187/61; PULSE 54; RESP 20; O2SAT 96
[2022-04-17 12:15] VITALS: BP 181/61; PULSE 61; RESP 20; O2SAT 96
[2022-04-17 12:30] VITALS: BP 173/63; PULSE 58; RESP 20; TEMP 36.1; O2SAT 96
--- NOTE | 2022-04-17 12:44 | PC.NURSE ---
per dr. downs discharge patient with plug to suprapubic catheter to drain at home as previous. see md in 5 weeks
== END 2022-04-17 13:46 | disposition home or self-care (01) ==
PROVIDERS: PCP Internal Medicine; Visit Provider Urology
PROC: (CPT 51102; principal; 2022-04-17 09:20)
DX: N31.9 Neuromuscular dysfunction of bladder, unspecified (principal); N40.1 Benign prostatic hyperplasia with lower urinary tract symptoms; R33.8 Other retention of urine; R39.14 Feeling of incomplete bladder emptying; I12.9 Hypertensive chronic kidney disease with stage 1 through stage 4 chronic kidney disease, or unspecified chronic kidney disease; N18.30 Chronic kidney disease, stage 3 unspecified; I48.91 Unspecified atrial fibrillation; D64.9 Anemia, unspecified; I25.10 Atherosclerotic heart disease of native coronary artery without angina pectoris; I25.2 Old myocardial infarction; Z95.3 Presence of xenogenic heart valve; E78.5 Hyperlipidemia, unspecified; J44.9 Chronic obstructive pulmonary disease, unspecified; Z86.73 Personal history of transient ischemic attack (TIA), and cerebral infarction without residual deficits; Z79.01 Long term (current) use of anticoagulants; Z79.82 Long term (current) use of aspirin; Z79.899 Other long term (current) drug therapy; F17.210 Nicotine dependence, cigarettes, uncomplicated
CPT/HCPCS: 51102; J1956; J2795

== ENCOUNTER → 2022-05-24 10:31 | Outpatient (BNVA) | payer MEDICARE, SELFPAY | PROVIDERS: PCP Internal Medicine; Visit Provider Urology | DX: N40.0 Benign prostatic hyperplasia without lower urinary tract symptoms (principal); N39.0 Urinary tract infection, site not specified; R33.9 Retention of urine, unspecified | CPT/HCPCS: 51705; 99212 ==

== ENCOUNTER → 2022-06-21 10:25 | Outpatient (BNVA) | payer MEDICARE, SELFPAY | PROVIDERS: PCP Internal Medicine; Visit Provider Urology | DX: R33.9 Retention of urine, unspecified (principal) | CPT/HCPCS: 51705 ==

== ENCOUNTER → 2022-07-19 12:57 | Outpatient (BNVA) | payer MEDICARE, SELFPAY | PROVIDERS: PCP Internal Medicine; Visit Provider Urology | DX: R33.9 Retention of urine, unspecified (principal) | CPT/HCPCS: 51705 ==

== ENCOUNTER → 2022-08-16 13:19 | Outpatient (BNVA) | payer MEDICARE, SELFPAY | PROVIDERS: PCP Internal Medicine; Visit Provider Urology | DX: Z13.9 Encounter for screening, unspecified (principal) | CPT/HCPCS: 51705 ==

== ENCOUNTER 2022-08-29 13:04 | Inpatient (IN) | payer MEDICARE, SELFPAY ==
--- NOTE | 2022-08-29 | ECG_ITS ---
Test Reason : REPEAT Blood Pressure : / mmHG Vent. Rate : 075 BPM Atrial Rate : 000 BPM P-R Int : 000 ms QRS Dur : 094 ms QT Int : 422 ms P-R-T Axes : 000 -20 110 degrees QTc Int : 471 ms Normal sinus rhythm with premature ventricular or aberrantly conducted complexes with frequent Premature atrial complexes Anteroseptal infarct (cited on or before 23-JAN-2017) Abnormal ECG When compared with ECG of 29-AUG-2022 16:47, Atrial fibrillation has replaced Sinus rhythm Referred By: Cleve Mckeon Electronically Signed By:ALLEN CORNEJO MD
--- NOTE | ~2022-08-29 | CT_ITS ---
EXAMINATION: CT ABDOMEN AND PELVIS WITHOUT CONTRAST CLINICAL INFORMATION: Severe diarrhea COMPARISON: CT abdomen and pelvis 10/24/2021 TECHNIQUE: Multidetector volumetric imaging was performed from the superior aspect of the liver through the pubic symphysis. Sagittal and coronal reformatted images were obtained on the technologist's workstation. This CT examination was performed using dose optimization techniques as appropriate, variously including the following: *Automated exposure control *Adjustment of mA and/or kV according to patient size (this includes techniques or standardized protocols for targeted exams where dose is matched to indication/reason for exam; i.e. extremities or head) *Use of iterative reconstruction technique DLP: 297 mGy-cm FINDINGS: LUNG BASES: Status post TAVR. Right coronary artery vascular calcifications. Emphysematous changes in the visualized lungs. Mild left basilar atelectasis. LIVER, GALLBLADDER, AND BILIARY TREE: The liver is normal in size, shape, and attenuation. No focal hepatic lesion or biliary ductal dilatation is present. The gallbladder is unremarkable with no evidence of radiopaque gallstones, gallbladder wall thickening, or obvious pericholecystic inflammatory changes. PANCREAS: Unremarkable. SPLEEN: Unremarkable. ADRENAL GLANDS: 1 cm right adrenal nodule with attenuation values of -2 Hounsfield units consistent with a lipid rich adenoma. Unremarkable left adrenal gland. KIDNEYS AND URETERS: Small low-density apparent/simple appearing bilateral renal cysts, similar to prior. No follow-up imaging recommended. Possible punctate 1-2 mm nonobstructing right lower pole renal calculus. No hydronephrosis. Symmetric perirenal fascial stranding/edema, unchanged and nonspecific. BLADDER: Diffusely thick-walled with multiple diverticuli. Suprapubic tube in place. GASTROINTESTINAL TRACT: Extensive descending and sigmoid diverticulosis. Somewhat thick-walled appearance of the sigmoid colon without pericolonic inflammatory fat stranding, similar to the prior exam. No additional bowel wall thickening. No dilated bowel loops. Normal appendix. No free air or ascites. No pneumatosis or portal venous gas on the current exam. ABDOMINAL WALL: No significant hernia is appreciated. LYMPH NODES: No lymphadenopathy identified. VASCULAR: Extensive vascular calcifications. No abdominal aortic aneurysm. PELVIC VISCERA: Normal-sized prostate gland. Calcifications of the vas deferens noted, and can be seen in the setting of underlying diabetes. Correlate clinically. OSSEOUS STRUCTURES: No acute fracture or suspicious osseous lesion. Ankylosis of L2-S1. Mild levoconvex curvature the lumbar spine. Advanced degenerative disc disease in the lower thoracic spine and at L1-L2. Bilateral hip joint osteoarthritis. CT/CT abdomen pelvis wo IV con IMPRESSION: 1. Extensive descending and sigmoid diverticulosis. Somewhat thick-walled appearance of the sigmoid colon without pericolonic inflammatory fat stranding, similar to prior. Findings could be due to chronic diverticular disease or possibly mild colitis. 2. No evidence of bowel obstruction or other acute intra-abdominal process. 3. Additional prominent findings, as described.
[2022-08-29 13:41] VITALS: BP 135/51; PULSE 67; RESP 18; O2SAT 97; BMI 19.0
--- NOTE | 2022-08-29 13:47 | ED_ITS ---
HPI - Abdominal Pain General Chief Complaint: Nausea/Vomiting/Diarrhea <Tamiko Chilel NP - Last Filed: 08/29/22 13:51> Stated Complaint: chronic diarrhea <Tamiko Chilel NP - Last Filed: 08/29/22 13:51> Time Seen by Provider: 08/29/22 16:07 <Tamiko Chilel NP - Last Filed: 08/29/22 13:51> Source: patient <ZURDO Jones - Last Filed: 08/29/22 18:38> Mode of arrival: ambulatory <ZURDO Jones - Last Filed: 08/29/22 18:38> Limitations: no limitations <UZRDO Jones - Last Filed: 08/29/22 18:38> History of Present Illness HPI narrative: This is an 86 year old male hx of chronic suprapubic catheter,chronic back pain, spinal stenosis, hypertension, hyperlipidemia, nonischhemic cardiomyopathy, aortic valve replacement sp TAVR, AFib on baby aspirin presents with acute on chronic diarrhea, abd pain X a few months however worsening since Latanya now with generalized weakness and decreased PO intake. Patient reports around 10 episodes of completely liquid brown diarrhea daily, he tells me he has been eating and drinking however less than usual. He reports he has been on multiple antibiotics within the past few months. He denies recent sick contacts, known around him with similar symptoms, denies travel. Has history of C diff (last time 10/25/21). Also reporting that his suprapubic catheter is leaking. Denies chest shortness breath nausea, vomiting, abdominal pain, fever, chills headache, vision changes, dizziness <ZURDO Jones - Last Filed: 08/29/22 18:38> Related Data Home Medications: Home Medications Medication Instructions Recorded Confirmed aspirin 81 mg tablet,delayed 81 mg PO DAILY 10/24/21 08/29/22 release atorvastatin 10 mg tablet 1 tab PO BEDTIME 10/24/21 08/29/22 cholecalciferol (vitamin D3) 50 50 mcg PO DAILY 10/24/21 08/29/22 mcg (2,000 unit) tablet (Vitamin D3) cyanocobalamin (vitamin B-12) 1,500 mcg PO DAILY 10/24/21 08/29/22 1,500 mcg tablet,extended release ferrous sulfate 324 mg (65 mg 324 mg PO DAILY 10/24/21 08/29/22 iron) tablet,delayed release metoprolol tartrate 25 mg tablet 2 tab PO DAILY 10/24/21 08/29/22 sodium bicarbonate 650 mg tablet 650 mg PO TID 03/13/22 08/29/22 oxycodone 20 mg tablet 1 tab PO QID PRN Pain 04/11/22 08/29/22 finasteride 5 mg tablet 1 tab PO DAILY 08/29/22 08/29/22 gabapentin 100 mg capsule 1 cap PO BEDTIME 08/29/22 08/29/22 hydralazine 10 mg tablet 1 tab PO TID 08/29/22 08/29/22 methenamine hippurate 1 gram tablet 1 g PO DAILY 08/29/22 08/29/22 metoprolol tartrate 25 mg tablet 25 mg PO BEDTIME 08/29/22 08/29/22 terazosin 5 mg capsule 1 cap PO BEDTIME 08/29/22 08/29/22 <Tamiko Chilel NP - Last Filed: 08/29/22 13:51> Allergies/Adverse Reactions: Allergies Allergy/AdvReac Type Severity Reaction Status Date / Time No Known Allergies Allergy Verified 05/23/22 16:00 [No Known Allergies*] <Tamiko Chilel NP - Last Filed: 08/29/22 13:51> Review of Systems Review of Systems Constitutional : No Weight loss, No Fever, No Chills, No Fatigue, No Malaise ENT/Mouth : No sore throat, No Rhinorrhea Eyes: No Eye Pain, No Swelling, No Redness Cardiovascular : No Chest Pain, No SOB, No Dyspnea on Exertion, No Orthopnea, No Edema, No Palpitations Respiratory : No Cough, No Sputum, No Wheezing Gastrointestinal : No Nausea, No Vomiting, + Diarrhea, No Constipation, No abdominal Pain, No Hematochezia, No Melena Genitourinary : No Dysuria, No Urinary Frequency, No Hematuria, Musculoskeletal : No joint pain, No Myalgias, No Joint Swelling Skin : No Skin Lesions, No rash Neuro : + Weakness, No Numbness, No Dizziness, No Headache Psych : No Anxiety/Panic, No Depression All other systems reviewed and are negative <ZURDO Jones - Last Filed: 08/29/22 18:38> Yes all other systems are reviewed and are negative <ZURDO Jones - Last Filed: 08/29/22 18:38> [facility] Past Medical History Attestation statement: The following information was validated with the patient. <ZURDO Jones - Last Filed: 08/29/22 18:38> Source: old records reviewed and nursing notes reviewed <ZURDO Jones - Last Filed: 08/29/22 18:38> Medical History: Medical History Abnormal CT of the abdomen Afib Anemia BPH (benign prostatic hyperplasia) CAD (coronary artery disease) CKD (chronic kidney disease) COPD (chronic obstructive pulmonary disease) CVA (cerebral vascular accident) Taveras catheter in place [place] (hard of hearing) Hyperlipidemia Hyperparathyroidism Hypertension NSTEMI (non-ST elevated myocardial infarction) Smoker Spinal stenosis Urinary retention <Tamiko Chilel NP - Last Filed: 08/29/22 13:51> Surgical History: Surgical History H/O aortic valve replacement with porcine valve History of right-sided carotid endarterectomy History of suprapubic catheter S/P AVR (aortic valve replacement) <Tamiko Chilel NP - Last Filed: 08/29/22 13:51> Family History Family History: Family History Mother CHF (congestive heart failure) <Tamiko Chilel NP - Last Filed: 08/29/22 13:51> Social History Social History: Social History Household Members: Family Housing: House Are you a primary home care nurse to a significant other at home: No Do you presently have visiting nurse or other home services: No Alcohol intake: never Patient Tobacco Use Status: Current everyday Tobacco user Tobacco use type: Cigarette Cigarette Packs Per Day: 1 Cigarettes Per Day: 20.0 Years Smoked: 65+ Smoked in Last 30 Days: Yes Use of substances other than those prescribed or required for medical reasons: No Advance Directives: Yes Advance Directives on File: Yes Advance Directives Date on File: 10/25/21 Current occupational status: retired <Tamiko Chilel NP - Last Filed: 08/29/22 13:51> Physical Exam ED Vital Signs: Vital Signs - 24 hr 08/29/22 13:41 08/29/22 16:45 08/29/22 16:54 Pulse Rate 67 110 H 64 Respiratory Rate 18 12 20 Blood Pressure 135/51 L 139/54 L Pulse Oximetry 97 Oxygen Delivery Method Room Air Room Air BMI result Body Mass Index 19.0 <Tamiko Chilel NP - Last Filed: 08/29/22 13:51> Vital Signs - 24 hr 08/29/22 13:41 08/29/22 16:45 08/29/22 16:54 Pulse Rate 67 110 H 64 Respiratory Rate 18 12 20 Blood Pressure 135/51 L 139/54 L Pulse Oximetry 97 Oxygen Delivery Method Room Air Room Air BMI result Body Mass Index 19.0 vss <ZURDO Jones - Last Filed: 08/29/22 18:38> Appearance: Alert.? Oriented X3.? No acute distress.? Head: Normocephalic, atraumatic, no step-offs or deformities Eyes: Pupils equal, round and reactive to light.? ENT: Pharynx normal.? Neck: Normal inspection.? Neck supple.? CVS: Normal heart rate and rhythm.? Pulses normal.? Respiratory: No respiratory distress.? Breath sounds normal.? Abdomen: Soft and diffusely tender.? Suprapubic catheter in place with slight erythema surrounding side of insertion Skin: Skin warm and dry.? Normal skin color.? Normal skin turgor.? Extremities: No lower extremity edema.? No calf ttp. Global weakness. Neuro: Oriented X 3.? No motor deficit.? No sensory deficit. CN 2-12 intact <ZURDO Jones - Last Filed: 08/29/22 18:38> Course Course Course Narrative: This is rapid medical exam. Defer additional HPI, ROS, PE to primary provider. 86-year-old male who has a chronic suprapubic catheter, history of chronic back pain, spinal stenosis, hypertension, hyperlipidemia, aortic valve replacement, AFib on baby aspirin presents with acute on chronic diarrhea since Latanya now with generalized weakness for crying wheelchair for ambulation, patient report 8-9 episodes of diarrhea a day. Family also concerned that his suprapubic catheter may be leaking. Will check labs, stool studies, UA. <Tamiko Chilel NP - Last Filed: 08/29/22 13:51> Reevaluation(s) Reevaluation #1: CBC with leukocytosis and a normocytic anemia. Deviating significantly from his baseline will obtain an OBS. Patient's potassium is noted to be 5.9 will give lokelma, insulin w/ D5, albuterol 10, patient noted to have acute on chronic kidney injury <ZURDO Jones - Last Filed: 08/29/22 18:38> Time: 16:26 <ZURDO Jones - Last Filed: 08/29/22 18:38> Reevaluation #2: CT of the abdomen pelvis with extensive descending and sigmoid diverticulosis. Colitis is also noted. No evidence of bowel obstruction or other acute intra-abdominal processes. To note upon chart review patient was positive for Clostridium difficile 10/25/2021. Pending stool studies and OBS. <ZURDO Jones - Last Filed: 08/29/22 18:38> Time: 17:29 <ZURDO Jones - Last Filed: 08/29/22 18:38> Reevaluation #3: Plan at this time is to admit patient to the hospital for further inte rvention and treatment. Spoke to hospitalist Dr. Navarro. <ZURDO Jones - Last Filed: 08/29/22 18:38> Time: 17:30 <ZURDO Jones - Last Filed: 08/29/22 18:38> Medical Decision Making Medical Decision Making [facility] Narrative: 1613 86-year-old male presents with acute on chronic diarrhea as well as generalized weakness worsening over the past 4 days. Physical exam with generalized weakness, no focal neuro deficits. Soft and diffusely tender.? Suprapubic catheter in place with slight erythema surrounding side of insertion Regular rate and rhythm. Lungs clear. Concerns for possible C diff, colitis. Unlikely acute abdomen. Plan at this time labs, imaging, stool studies, urine. <ZURDO Jones - Last Filed: 08/29/22 18:38> Lab Data Result Diagrams: : 08/29/22 14:25 08/29/22 14:25 <Tamiko Chilel NP - Last Filed: 08/29/22 13:51> Labs: Lab Results 08/29/22 08/29/22 08/29/22 Range/Units 14:25 14:25 18:12 WBC 13.3 H (4.8-10.8) X10*3/uL RBC 3.27 L (4.60-5.80) X10*6/uL Hgb 9.5 L (14.0-18.0) g/dl Hct 31.5 L (42.0-52.0) % MCV 96.3 (80.0-98.0) fL MCH 29.1 (27.0-33.0) pg MCHC 30.2 L (31.0-36.0) g/dl RDW 17.8 H (11.0-16.0) % Plt Count 292 D (160-400) X10*3/uL MPV 9.5 (9.4-12.4) fL Immature Gran % (Auto) 0.5 H (0.0-0.4) % Neut % (Auto) 61.6 (45-73) % Lymph % (Auto) 29.0 (20-40) % [place] % (Auto) 7.6 (2-11) % Eos % (Auto) 0.8 (0-4) % Baso % (Auto) 0.5 (0-2) % Lymph # (Auto) 3.9 (1.2-4.9) X10*3/uL [place] # (Auto) 1.0 (0.1-1.2) X10*3/uL Eos # (Auto) 0.1 (0.0-0.4) X10*3/uL Baso # (Auto) 0.1 (0.0-0.2) X10*3/uL Abs Immat Gran (auto) 0.06 H (0.00-0.03) X10*3/uL Absolute Neuts (auto) 8.2 (2.0-8.3) x10*3/uL Absolute Nucleated RBC 0.000 (0.0-0.012) X10*3/uL Nucleated RBC % (auto) 0.0 (0.0-0.2) /100WBC Sodium 138 (135-145) mmol/L Potassium 5.9 H D (3.3-5.1) mmol/L Chloride 107 (96-108) mmol/L Carbon Dioxide 21 L (22-29) mmol/L Anion Gap 16 (12-20) BUN 60 H (9-16) mg/dL Creatinine 4.07 H* (0.5-1.4) mg/dL Estim Creat Clear Calc 10.8 Estimated GFR 14 POC Glucose 258 H (60-115) mg/dL Random Glucose 95 (60-115) mg/dL Calcium 9.1 D (8.4-10.2) mg/dL Magnesium 2.3 (1.6-2.6) mg/dL Total Bilirubin 0.4 (0.0-1.0) mg/dL Direct Bilirubin < 0.2 (0.0-0.5) mg/dL AST 21 (5-37) U/L ALT 26 (0-40) U/L Alkaline Phosphatase 54 (39-117) U/L Total Protein 6.8 (6.5-8.0) g/dL Albumin 3.7 (3.5-5.0) g/dL <Tamiko Chilel, ATHLETIC TEAM PHYSICIAN - Last Filed: 08/29/22 13:51> Lab Results 08/29/22 08/29/22 08/29/22 Range/Units 14:25 14:25 18:12 WBC 13.3 H (4.8-10.8) X10*3/uL RBC 3.27 L (4.60-5.80) X10*6/uL Hgb 9.5 L (14.0-18.0) g/dl Hct 31.5 L (42.0-52.0) % MCV 96.3 (80.0-98.0) fL MCH 29.1 (27.0-33.0) pg MCHC 30.2 L (31.0-36.0) g/dl RDW 17.8 H (11.0-16.0) % Plt Count 292 D (160-400) X10*3/uL MPV 9.5 (9.4-12.4) fL Immature Gran % (Auto) 0.5 H (0.0-0.4) % Neut % (Auto) 61.6 (45-73) % Lymph % (Auto) 29.0 (20-40) % [place] % (Auto) 7.6 (2-11) % Eos % (Auto) 0.8 (0-4) % Baso % (Auto) 0.5 (0-2) % Lymph # (Auto) 3.9 (1.2-4.9) X10*3/uL [place] # (Auto) 1.0 (0.1-1.2) X10*3/uL Eos # (Auto) 0.1 (0.0-0.4) X10*3/uL Baso # (Auto) 0.1 (0.0-0.2) X10*3/uL Abs Immat Gran (auto) 0.06 H (0.00-0.03) X10*3/uL Absolute Neuts (auto) 8.2 (2.0-8.3) x10*3/uL Absolute Nucleated RBC 0.000 (0.0-0.012) X10*3/uL Nucleated RBC % (auto) 0.0 (0.0-0.2) /100WBC Sodium 138 (135-145) mmol/L Potassium 5.9 H D (3.3-5.1) mmol/L Chloride 107 (96-108) mmol/L Carbon Dioxide 21 L (22-29) mmol/L Anion Gap 16 (12-20) BUN 60 H (9-16) mg/dL Creatinine 4.07 H* (0.5-1.4) mg/dL Estim Creat Clear Calc 10.8 Estimated GFR 14 POC Glucose 258 H (60-115) mg/dL Random Glucose 95 (60-115) mg/dL Calcium 9.1 D (8.4-10.2) mg/dL Magnesium 2.3 (1.6-2.6) mg/dL Total Bilirubin 0.4 (0.0-1.0) mg/dL Direct Bilirubin < 0.2 (0.0-0.5) mg/dL AST 21 (5-37) U/L ALT 26 (0-40) U/L Alkaline Phosphatase 54 (39-117) U/L Total Protein 6.8 (6.5-8.0) g/dL Albumin 3.7 (3.5-5.0) g/dL <ZURDO Jones - Last Filed: 08/29/22 18:38> Medications Administered Discontinued Medications Generic Name Dose Route Start Last Admin Trade Name Freq PRN Reason Stop Dose Admin Albuterol Sulfate 7.5 mg/ 10 mg 08/29/22 16:21 08/29/22 16:40 Albuterol Sulfate 2.5 mg INHALE 08/29/22 16:22 10 mg ONCE ONE Administration Dextrose 50 gm 08/29/22 16:21 08/29/22 17:17 Dextrose 50 % 25 Gm/50 Ml Syringe IVPUSH 08/29/22 16:22 50 gm ONCE ONE Administration Sodium Chloride 1,000 mls @ 999 mls/hr 08/29/22 16:30 08/29/22 17:16 Ns IV 08/29/22 17:30 999 mls/hr .Q1H1M TORY Administration Insulin Human Regular 5 unit 08/29/22 16:25 08/29/22 17:17 Insulin Regular, Human 100 Unit/Ml 3 Ml Vial IVPUSH 08/29/22 16:26 5 unit ONCE ONE Administration Sodium Zirconium Cyclosilicate 10 gm 08/29/22 16:21 08/29/22 17:20 Sodium Zirconium Cyclosilicate 10 Gm Powd.Pack PO 08/29/22 16:22 10 gm ONCE ONE Administration <Tamiko Chilel NP - Last Filed: 08/29/22 13:51> Medications Administered Discontinued Medications Generic Name Dose Route Start Last Admin Trade Name Freq PRN Reason Stop Dose Admin Albuterol Sulfate 7.5 mg/ 10 mg 08/29/22 16:21 08/29/22 16:40 Albuterol Sulfate 2.5 mg INHALE 08/29/22 16:22 10 mg ONCE ONE Administration Dextrose 50 gm 08/29/22 16:21 08/29/22 17:17 Dextrose 50 % 25 Gm/50 Ml Syringe IVPUSH 08/29/22 16:22 50 gm ONCE ONE Administration Sodium Chloride 1,000 mls @ 999 mls/hr 08/29/22 16:30 08/29/22 17:16 Ns IV 08/29/22 17:30 999 mls/hr .Q1H1M TORY Administration Insulin Human Regular 5 unit 08/29/22 16:25 08/29/22 17:17 Insulin Regular, Human 100 Unit/Ml 3 Ml Vial IVPUSH 08/29/22 16:26 5 unit ONCE ONE Administration Sodium Zirconium Cyclosilicate 10 gm 08/29/22 16:21 08/29/22 17:20 Sodium Zirconium Cyclosilicate 10 Gm Powd.Pack PO 08/29/22 16:22 10 gm ONCE ONE Administration <ZURDO Jones - Last Filed: 08/29/22 18:38> Critical Care Time Critical Care Time Critical Care Time: No <ZURDO Jones - Last Filed: 08/29/22 18:38> Discharge Plan Discharge Clinical Impression: Acute on chronic kidney failure, Acute hyperkalemia, Colitis, Normocytic anemia <Tamiko Chilel NP - Last Filed: 08/29/22 13:51> Patient Disposition: Still a Patient <Tamiko Chilel NP - Last Filed: 08/29/22 13:51> Prescriptions: No Action oxycodone 20 mg tablet 1 tab PO QID PRN (Reason: Pain) atorvastatin 10 mg tablet 1 tab PO BEDTIME metoprolol tartrate 25 mg tablet 2 tab PO DAILY aspirin 81 mg Tablet,Delayed Release (Dr/Ec) 81 mg PO DAILY cyanocobalamin (vitamin B-12) 1,500 mcg Tablet Extended Release 1,500 mcg PO DAILY ferrous sulfate 324 mg (65 mg iron) Tablet,Delayed Release (Dr/Ec) 324 mg PO DAILY cholecalciferol (vitamin D3) [Vitamin D3] 50 mcg (2,000 unit) Tablet 50 mcg PO DAILY gabapentin 100 mg capsule 1 cap PO BEDTIME metoprolol tartrate 25 mg tablet 25 mg PO BEDTIME methenamine hippurate 1 gram tablet 1 g PO DAILY terazosin 5 mg capsule 1 cap PO BEDTIME hydralazine 10 mg tablet 1 tab PO TID finasteride 5 mg tablet 1 tab PO DAILY sodium bicarbonate 650 mg tablet 650 mg PO TID <Tamiko Chilel NP - Last Filed: 08/29/22 13:51>
[2022-08-29 14:29] LABS: MANUAL DIFF FLAG NO
[2022-08-29 14:30] LABS: Basophils Absolute Auto 0.1 X10*3/uL (0.0-0.2); Basophils Percent Auto 0.5 % (0-2); Eosinophils Absolute Auto 0.1 X10*3/uL (0.0-0.4); Eosinophils Percent Auto 0.8 % (0-4); Hematocrit 31.5 % (42.0-52.0); Hemoglobin 9.5 g/dl (14.0-18.0); Imm Gran Abs Auto 0.06 X10*3/uL (0.00-0.03); Imm Gran Pct Auto 0.5 % (0.0-0.4); Lymphocytes Absolute Auto 3.9 X10*3/uL (1.2-4.9); Mean Corpuscular HGB Conc 30.2 g/dl (31.0-36.0); Mean Corpuscular Hemoglobin 29.1 pg (27.0-33.0); Mean Corpuscular Volume 96.3 fL (80.0-98.0); Mean Platelet Volume 9.5 fL (9.4-12.4); Monocytes Percent Auto 7.6 % (2-11); Neutrophils Absolute Auto 8.2 x10*3/uL (2.0-8.3); Neutrophils Percent Auto 61.6 % (45-73); Platelet Count 292 X10*3/uL (160-400); Red Blood Count 3.27 X10*6/uL (4.60-5.80); Red Cell Distribution Width 17.8 % (11.0-16.0); White Blood Count 13.3 X10*3/uL (4.8-10.8)
[2022-08-29 14:55] LABS: Alanine Aminotransferase 26 U/L (0-40); Albumin Level 3.7 g/dL (3.5-5.0); Alkaline Phosphatase 54 U/L (39-117); Anion Gap 16 (12-20); Aspartate Amino Transferase 21 U/L (5-37); Bilirubin Direct < 0.2 mg/dL (0.0-0.5); Bilirubin Total 0.4 mg/dL (0.0-1.0); Blood Urea Nitrogen 60 mg/dL (9-16); Calcium 9.1 mg/dL (8.4-10.2); Carbon Dioxide 21 mmol/L (22-29); Chloride 107 mmol/L (96-108); Creatinine Clr Calc Pharmacy 10.8; Estimated Glomerular Filt Rate 14; Glucose Random 95 mg/dL (60-115); Magnesium 2.3 mg/dL (1.6-2.6); Potassium 5.9 mmol/L (3.3-5.1); Sodium 138 mmol/L (135-145); Total Protein 6.8 g/dL (6.5-8.0)
--- NOTE | 2022-08-29 16:25 | ECG_ITS ---
Test Reason : VOMITING Blood Pressure : / mmHG Vent. Rate : 063 BPM Atrial Rate : 063 BPM P-R Int : 294 ms QRS Dur : 094 ms QT Int : 442 ms P-R-T Axes : 056 -14 088 degrees QTc Int : 452 ms Sinus rhythm with 1st degree A-V block with occasional Premature ventricular complexes Left ventricular hypertrophy with repolarization abnormality ( Sokolow-King ) Anteroseptal infarct (cited on or before 23-JAN-2017) Abnormal ECG When compared with ECG of 28-OCT-2021 01:06, Questionable change in initial forces of Anteroseptal leads Referred By: Naye Walker Electronically Signed By:ALLEN CORNEJO MD
[2022-08-29] MEDS: Albuterol Sulfate 7.5 MG, Albuterol Sulfate (0.083%) 2.5 MG 10 MG INHALE (16:40)
[2022-08-29 16:45] VITALS: PULSE 110; RESP 12; O2SAT 96
[2022-08-29 16:54] VITALS: BP 139/54; PULSE 64; RESP 20
[2022-08-29] MEDS: 0.9 % Sodium Chloride 1,000 ML 999 ML IV ×3 (17:16→19:56)
[2022-08-29] MEDS: Insulin Regular, Human 100 UNIT/ML 3 ML VIAL IVPUSH (17:17)
[2022-08-29] MEDS: Dextrose 50 % 25 GM/50 ML SYRINGE IVPUSH (17:17)
[2022-08-29] MEDS: Sodium Zirconium Cyclosilicate 10 GM POWD.PACK PO (17:20)
[2022-08-29 18:18] LABS: Glucose, Whole Blood 258 mg/dL (60-115)
--- NOTE | 2022-08-29 18:41 | PHA.MEDREC ---
Pharmacy Consult ? Medication Reconciliation Pharmacy has completed the medication reconciliation.
--- NOTE | 2022-08-29 18:58 | PM.IMHP ---
History of Present Illness Date of Service: 08/29/22 Chief Complaint: diarrhea 86 year old male hx of chronic suprapubic catheter,chronic back pain, spinal stenosis, hypertension, hyperlipidemia, nonischhemic cardiomyopathy, aortic valve replacement sp TAVR, AFib on baby aspirin presents with acute on chronic diarrhea, abd pain? X a few months however worsening since Latanya now with generalized weakness and decreased PO intake.? Patient reports around 10 episodes of completely liquid brown diarrhea daily, he tells me he has been eating and drinking however less than usual.? He reports he has been on multiple antibiotics within the past few months.? He denies recent sick contacts, known around him with similar symptoms, denies travel.? Has history of C diff (last time 10/25/21). Review of Systems Review of Systems: Denies chest pain Denies shortness of breath Denies nausea vomiting diarrhea Denies fever chills [facility] Medical History (Updated 08/30/22 @ 14:49 by Rock Navarro DO) Abnormal CT of the abdomen Afib Anemia BPH (benign prostatic hyperplasia) CAD (coronary artery disease) CKD (chronic kidney disease) COPD (chronic obstructive pulmonary disease) CVA (cerebral vascular accident) Taveras catheter in place [place] (hard of hearing) Hyperlipidemia Hyperparathyroidism Hypertension NSTEMI (non-ST elevated myocardial infarction) Smoker Spinal stenosis Urinary retention Family History Mother CHF (congestive heart failure) Surgical History H/O aortic valve replacement with porcine valve History of right-sided carotid endarterectomy History of suprapubic catheter S/P AVR (aortic valve replacement) Social History Household Members: Family Housing: House Are you a primary childcare center administrator to a significant other at home: No Do you presently have visiting nurse or other home services: No Alcohol intake: never Patient Tobacco Use Status: Current everyday Tobacco user Tobacco use type: Cigarette Cigarette Packs Per Day: 1 Cigarettes Per Day: 20.0 Years Smoked: 65+ Smoked in Last 30 Days: Yes Use of substances other than those prescribed or required for medical reasons: No Advance Directives: Yes Advance Directives on File: Yes Advance Directives Date on File: 10/25/21 Current occupational status: retired [email or web address] Allergies Allergy/AdvReac Type Severity Reaction Status Date / Time No Known Allergies Allergy Verified 05/23/22 16:00 [No Known Allergies*] Active Medications: Current Medications Heparin Sodium (Porcine) (Heparin Sodium,Porcine 5,000 Unit/Ml Vial) 5,000 unit SUBCUT Q12H [facility] Sodium Chloride (Ns) 1,000 mls @ 999 mls/hr IV .Q1H1M [facility] Stop: 08/29/22 19:45 Sodium Chloride (Ns) 1,000 mls @ 999 mls/hr IV .Q1H1M [facility] Stop: 08/29/22 19:45 Lactated Ringer's (Lr) 1,000 mls @ 100 mls/hr IVCONT .Q10H [facility] Pharmacy Consult (Consult Rx Perform Med Rec) 1 each MISCELLANE ONCE PRN PRN Reason: Consult order Pharmacy Consult (Consult Rx Perform Med Rec) 1 each MISCELLANE ONCE PRN PRN Reason: Consult order Sodium Chloride (0.9 % Sodium Chloride Flush 3 Ml Syringe) 3 ml IVFLUSH QSHIFT [facility] Vancomycin HCl (Vancomycin Hcl 125 Mg Capsule) 500 mg PO Q6H [facility] Home Medications Medication Instructions Recorded Confirmed Last Taken Type aspirin 81 mg tablet,delayed 81 mg PO DAILY 10/24/21 08/29/22 08/29/22 History release atorvastatin 10 mg tablet 1 tab PO BEDTIME 10/24/21 08/29/22 08/28/22 History cholecalciferol (vitamin D3) 50 50 mcg PO DAILY 10/24/21 08/29/22 08/29/22 History mcg (2,000 unit) tablet (Vitamin D3) cyanocobalamin (vitamin B-12) 1,500 mcg PO DAILY 10/24/21 08/29/22 08/29/22 History 1,500 mcg tablet,extended release ferrous sulfate 324 mg (65 mg 324 mg PO DAILY 10/24/21 08/29/22 08/29/22 History iron) tablet,delayed release metoprolol tartrate 25 mg tablet 2 tab PO DAILY 10/24/21 08/29/22 08/29/22 History sodium bicarbonate 650 mg tablet 650 mg PO TID 03/13/22 08/29/22 08/29/22 History oxycodone 20 mg tablet 1 tab PO QID PRN Pain 04/11/22 08/29/22 08/29/22 History finasteride 5 mg tablet 1 tab PO DAILY 08/29/22 08/29/22 08/29/22 History gabapentin 100 mg capsule 1 cap PO BEDTIME 08/29/22 08/29/22 08/28/22 History hydralazine 10 mg tablet 1 tab PO TID 08/29/22 08/29/22 08/29/22 History ibuprofen 600 mg tablet 600 mg PO Q6H PRN Pain 08/29/22 08/29/22 08/29/22 History methenamine hippurate 1 gram tablet 1 g PO DAILY 08/29/22 08/29/22 08/29/22 History metoprolol tartrate 25 mg tablet 25 mg PO BEDTIME 08/29/22 08/29/22 08/28/22 History terazosin 5 mg capsule 1 cap PO BEDTIME 08/29/22 08/29/22 08/28/22 History Physical Exam Vital Signs and Narrative: Vital Signs: Last Vital Signs Pulse 64 08/29/22 16:54 Resp 20 08/29/22 16:54 BP 139/54 L 08/29/22 16:54 Pulse Ox 97 08/29/22 13:41 O2 Del Method 08/29/22 16:54 BMI result Body Mass Index 19.0 Const: Other: Awake alert acute distress HEENT: Other: Membranes dry Resp: Other: Clear to auscultation bilaterally no rales rhonchi wheezes Cardio: Other: No S4; positive S1-S2; no S3 murmurs rubs or gallops GI: Other: Soft nontender nondistended normoactive bowel sounds. Suprapubic tube without surrounding of erythema Extrem: Other: No edema bilaterally Results Labs CBC and Chem 7: 08/30/22 03:33 08/30/22 03:33 Labs: Laboratory Results - last 24 hr 08/29/22 08/29/22 08/29/22 14:25 14:25 18:12 MCV 96.3 MCH 29.1 MCHC 30.2 L RDW 17.8 H Plt Count 292 D MPV 9.5 Immature Gran % (Auto) 0.5 H Neut % (Auto) 61.6 Lymph % (Auto) 29.0 [place] % (Auto) 7.6 Eos % (Auto) 0.8 Baso % (Auto) 0.5 Lymph # (Auto) 3.9 [place] # (Auto) 1.0 Eos # (Auto) 0.1 Baso # (Auto) 0.1 Abs Immat Gran (auto) 0.06 H Absolute Neuts (auto) 8.2 Absolute Nucleated RBC 0.000 Nucleated RBC % (auto) 0.0 Anion Gap 16 Estim Creat Clear Calc 10.8 Estimated GFR 14 POC Glucose 258 H Random Glucose 95 Calcium 9.1 D Magnesium 2.3 Total Bilirubin 0.4 Direct Bilirubin < 0.2 AST 21 ALT 26 Alkaline Phosphatase 54 Total Protein 6.8 Albumin 3.7 Imaging Radiologist's Impressions: Impressions Abdomen/Pelvis CT 08/29/22 16:40 IMPRESSION: 1. Extensive descending and sigmoid diverticulosis. Somewhat thick-walled appearance of the sigmoid colon without pericolonic inflammatory fat stranding, similar to prior. Findings could be due to chronic diverticular disease or possibly mild colitis. 2. No evidence of bowel obstruction or other acute intra-abdominal process. 3. Additional prominent findings, as described. Assessment and Plan (1) C. difficile colitis: Status: Acute (2) Acute on chronic kidney failure: Status: Acute (3) COPD (chronic obstructive pulmonary disease): Status: Acute Plan 86-year-old male with history of C diff colitis presents with 10 loose bowel movements a day over the last several days. Notes that he has been on antibiotics several times for urinary issues. His last episode of C diff and was October 2021 1. C diff colitis -Dificid b.i.d. -await ID consult 2.AOCRI -returning to baseline with fluids -follow renals/divalents -continue bicarb 3.COPD -@ baseline -continue outpatient therapies Required to these 2 inpatient midnights going forward for IV volume repletion to normalize CKD and backdrop of C diff Time Spent With Patient Time: Total time managing care of this patient today ____ minutes. Quality Stroke Does the patient have a stroke diagnosis?: No VTE Prior VTE?: No VTE Risk Level:: Medical - moderate - high VTE Device Contraindication: Treatment Not Indicated VTE Drug Contraindication: N/A - Med Ordered
--- NOTE | 2022-08-29 19:00 | PC.NURSE ---
This financial writer assumed care of this PT at this time.
[2022-08-29] MEDS: Heparin Sodium,Porcine 5,000 UNIT/ML VIAL 5000 UNIT SUBCUT (19:59)
[2022-08-29 20:26] VITALS: BP 143/57; PULSE 94; RESP 14; TEMP 36.7; O2SAT 99
[2022-08-29 20:43] LABS: COVID-19 Test Negative (Negative); IDNOW Serial# 16C4AD1C
--- NOTE | 2022-08-29 22:19 | PC.NURSE ---
Pt incontinent of brown, loose, watery stool. Sample collected and sent to lab. Incontinent care provided.
[2022-08-29] MEDS: Lactated Ringers 1,000 ML 100 ML IVCONT (22:27)
[2022-08-29] MEDS: Fidaxomicin 200 MG TABLET PO (22:27)
[2022-08-29 22:41] LABS: Appearance Urine Clear; Color Urine Yellow; Glucose Urine UA Negative (Negative); Leukocyte Esterase Urine Moderate (2+) (Negative); Nitrite Urine Negative (Negative); PH 5.5 (5.0-9.0); Specific Gravity - Urine 1.015 (1.005-1.025); UMIC TRIGGER UACC YES; Urine Blood Negative (Negative); Urine Ketones Negative (Negative); Urine Protein 100 (2+) mg/dL (Neg-Trace)
[2022-08-29 22:46] LABS: OBS Int Ctl Valid YES; OBS1 POSITIVE (NEGATIVE)
[2022-08-29 22:47] LABS: Bacteria Urine None Seen (None Seen); Hyaline Casts Urine 0-2 /LPF (0-2); RBC Urine 0-2 /HPF (0-2); Squamous Epithelial Cell Urine 0-2 /HPF (0-2); UACC Culture Trigger YES; WBC Urine 21-50 /HPF (0-5)
[2022-08-29 23:09] LABS: CDiff Gene PCR POSITIVE (Negative)
[2022-08-29 23:58] LABS: CDIFF Internal ctrl Dots and bkg OK (V); CDiff Toxin Negative (Negative)
[2022-08-30] VITALS (7 sets, daily range): BP systolic 106–157; BP diastolic 47–61; PULSE 69–104; RESP 10–19; TEMP 36.6; O2SAT 95–98
--- NOTE | 2022-08-30 | ECG_ITS ---
Test Reason : CHANGES IN EKG Blood Pressure : / mmHG Vent. Rate : 075 BPM Atrial Rate : 060 BPM P-R Int : 000 ms QRS Dur : 100 ms QT Int : 400 ms P-R-T Axes : 000 -27 102 degrees QTc Int : 446 ms Sinus rhythm with occasional Premature ventricular complexes and Premature atrial complexes Minimal voltage criteria for LVH, may be normal variant ( Amilcar product ) Anteroseptal infarct (cited on or before 23-JAN-2017) Abnormal ECG When compared with ECG of 30-AUG-2022 03:16, No significant changes seen Referred By: Cleve Mckeon Electronically Signed By:ALLEN CORNEJO MD
--- NOTE | 2022-08-30 03:20 | PC.NURSE ---
PT had run of 8 beat v-tach, provider notified. New EKG order and labs obtained. PT resting quietly, denies CP or palpitations.
[2022-08-30 03:57] LABS: Anion Gap 16 (12-20); Blood Urea Nitrogen 56 mg/dL (9-16); Carbon Dioxide 17 mmol/L (22-29); Chloride 112 mmol/L (96-108); Creatinine Clr Calc Pharmacy 12.6; Estimated Glomerular Filt Rate 17; Glucose Random 81 mg/dL (60-115); Magnesium 1.9 mg/dL (1.6-2.6); Potassium 4.8 mmol/L (3.3-5.1); Sodium 140 mmol/L (135-145)
[2022-08-30 04:40] LABS: MANUAL DIFF FLAG NO
[2022-08-30 04:41] LABS: Basophils Absolute Auto 0.1 X10*3/uL (0.0-0.2); Basophils Percent Auto 0.5 % (0-2); Eosinophils Absolute Auto 0.1 X10*3/uL (0.0-0.4); Hematocrit 28.4 % (42.0-52.0); Hemoglobin 8.4 g/dl (14.0-18.0); Imm Gran Abs Auto 0.06 X10*3/uL (0.00-0.03); Imm Gran Pct Auto 0.6 % (0.0-0.4); Lymphocytes Absolute Auto 3.3 X10*3/uL (1.2-4.9); Lymphocytes Percent Auto 29.8 % (20-40); Mean Corpuscular HGB Conc 29.6 g/dl (31.0-36.0); Mean Corpuscular Hemoglobin 28.6 pg (27.0-33.0); Mean Corpuscular Volume 96.6 fL (80.0-98.0); Mean Platelet Volume 10.3 fL (9.4-12.4); Monocytes Absolute Auto 0.9 X10*3/uL (0.1-1.2); Monocytes Percent Auto 7.9 % (2-11); Neutrophils Absolute Auto 6.6 x10*3/uL (2.0-8.3); Neutrophils Percent Auto 60.2 % (45-73); Platelet Count 238 X10*3/uL (160-400); Red Blood Count 2.94 X10*6/uL (4.60-5.80); Red Cell Distribution Width 17.6 % (11.0-16.0); White Blood Count 10.9 X10*3/uL (4.8-10.8)
--- NOTE | 2022-08-30 06:22 | PC.NURSE ---
Pt resting quietly, no apparent distress. Incontinent of stool, yudi care provided.
--- NOTE | 2022-08-30 07:43 | PC.NURSE ---
assumed care at 0700am, no pain or needs at this time. IV infusing as ordered. incont of stool and has no control of his bowels. AM care done by PCT
[2022-08-30] MEDS: Lactated Ringers 1,000 ML 100 ML IVCONT ×2 (08:09→15:24)
[2022-08-30] MEDS: Heparin Sodium,Porcine 5,000 UNIT/ML VIAL 5000 UNIT SUBCUT ×2 (08:10→17:54)
[2022-08-30] MEDS: Sodium Bicarbonate 650 MG TABLET PO ×3 (08:11→21:01)
[2022-08-30] MEDS: 0.9 % Sodium Chloride Flush 3 ML SYRINGE IVFLUSH (08:11)
[2022-08-30] MEDS: Fidaxomicin 200 MG TABLET PO ×2 (08:42→21:01)
[2022-08-30 12:01] LABS: Adenovirus F 40/41 Not Detected (Not Detect.); Astrovirus Not Detected (Not Detect.); Campylobacter Not Detected (Not Detect.); Cryptosporidium Not Detected (Not Detect.); Cyclospora cayetanensis Not Detected (Not Detect.); E. coli EAEC Not Detected (Not Detect.); E. coli EPEC Not Detected (Not Detect.); E. coli ETEC Not Detected (Not Detect.); E. coli STEC Not Detected (Not Detect.); Entamoeba histolytica Not Detected (Not Detect.); Giardia lamblia Not Detected (Not Detect.); Norovirus GI/GII Not Detected (Not Detect.); Plesiomonas shigelloides Not Detected (Not Detect.); Rotavirus A Not Detected (Not Detect.); Salmonella Not Detected (Not Detect.); Sapovirus Not Detected (Not Detect.); Shigella sp./EIEC Not Detected (Not Detect.); Vibrio Not Detected (Not Detect.); Vibrio Cholerae Not Detected (Not Detect.); Yersinia enterocolitica Not Detected (Not Detect.)
--- NOTE | 2022-08-30 12:10 | PC.NURSE ---
right IV infiltrated and warm compress given for swelling, arm is cool to touch , denies any pain.
--- NOTE | 2022-08-30 12:13 | PC.NURSE ---
IV placed in left upper arm with a #20 without complications.
--- NOTE | 2022-08-30 14:56 | HO.PM.IMPN ---
Subjective Subjective Date of Service: 08/30/22 Interval History: Somewhat improved overnight. Tolerating volume Review of Systems Denies chest pain Denies shortness of breath Denies nausea vomiting diarrhea Denies fever chills Physical Exam Vital Signs: Vital Signs: Last Vital Signs Temp 97.9 F 08/30/22 07:21 Pulse 80 08/30/22 07:21 Resp 10 L 08/30/22 07:21 BP 127/52 L 08/30/22 07:21 Pulse Ox 97 08/30/22 07:21 O2 Del Method 08/30/22 07:21 BMI result Body Mass Index 19.0 Const: Other: Awake alert acute distress HEENT: Other: Membranes dry Resp: Other: Clear to auscultation bilaterally no rales rhonchi wheezes Cardio: Other: No S4; positive S1-S2; no S3 murmurs rubs or gallops GI: Other: Soft nontender nondistended normoactive bowel sounds. Suprapubic tube without surrounding of erythema Extrem: Other: No edema bilaterally Objective Data Active Medications Fidaxomicin (Fidaxomicin 200 Mg Tablet) 200 mg PO Q12H [facility] Last Admin: 08/30/22 08:42 Dose: 200 mg Documented By: IGANNA Heparin Sodium (Porcine) (Heparin Sodium,Porcine 5,000 Unit/Ml Vial) 5,000 unit SUBCUT Q12H [facility] Last Admin: 08/30/22 08:10 Dose: 5,000 unit Documented By: GIANNA Lactated Ringer's (Lr) 1,000 mls @ 100 mls/hr IVCONT .Q10H [facility] Last Admin: 08/30/22 08:09 Dose: 100 mls/hr Documented By: GIANNA Non-Formulary Medication (Methenamine Hippurate) 1 gm PO DAILY [facility] Pharmacy Consult (Consult Rx Perform Med Rec) 1 each MISCELLANE ONCE PRN PRN Reason: Consult order Pharmacy Consult (Consult Rx Perform Med Rec) 1 each MISCELLANE ONCE PRN PRN Reason: Consult order Sodium Bicarbonate (Sodium Bicarbonate 650 Mg Tablet) 650 mg PO TID [facility] Last Admin: 08/30/22 08:11 Dose: 650 mg Documented By: GIANNA Sodium Chloride (0.9 % Sodium Chloride Flush 3 Ml Syringe) 3 ml IVFLUSH QSHIFT [facility] Last Admin: 08/30/22 08:11 Dose: 3 ml Documented By: GIANNA Labs CBC & Chem 7: 08/30/22 03:33 08/30/22 03:33 Labs: Laboratory Results - last 24 hr 08/29/22 08/29/22 08/29/22 14:25 18:12 20:15 MCV MCH MCHC RDW Plt Count MPV Immature Gran % (Auto) Neut % (Auto) Lymph % (Auto) Amelia % (Auto) Eos % (Auto) Baso % (Auto) Lymph # (Auto) Amelia # (Auto) Eos # (Auto) Baso # (Auto) Abs Immat Gran (auto) Absolute Neuts (auto) Absolute Nucleated RBC Nucleated RBC % (auto) Anion Gap 16 Estim Creat Clear Calc 10.8 Estimated GFR 14 POC Glucose 258 H Random Glucose 95 Calcium 9.1 D Magnesium 2.3 Total Bilirubin 0.4 Direct Bilirubin < 0.2 AST 21 ALT 26 Alkaline Phosphatase 54 Total Protein 6.8 Albumin 3.7 Urine Color Urine Appearance Urine pH Ur Specific Collins Urine Protein Urine Glucose (UA) Urine Ketones Urine Blood Urine Nitrite Ur Leukocyte Esterase Urine RBC Urine WBC Ur Squamous Epith Cells Urine Bacteria Hyaline Casts Stool Occult Blood Stl C. cayetanensis PCR Stool Rotavirus A PCR Stl Adenov F 40/41 PCR Stool Astrovirus (PCR) Stool Campylobacter PCR Stool Cryptosporidium PCR Stl Sh Tox Pr E STEC PCR Stool E coli O157 PCR Stl Enterotoxigenic E PCR Stool EPEC (PCR) Stool EAEC (PCR) Stl E. histolytica PCR Stool Giardia Lamblia PCR Stl P. shigelloides PCR Stool Salmonella PCR Stool Sapovirus (PCR) Stl Shigella/EIEC PCR St Y.enterocolitica PCR Stool Vibrio (PCR) Stl Vibrio cholerae PCR Stl Norovirus GI/GII PCR C. difficile Tox B Gene C. difficile Toxin A&B C. difficile Interpret COVID-19 ([facility]) Negative COVID-19 Clin Com See Note 08/29/22 08/29/22 08/29/22 22:13 22:13 22:13 MCV MCH MCHC RDW Plt Count MPV Immature Gran % (Auto) Neut % (Auto) Lymph % (Auto) Amelia % (Auto) Eos % (Auto) Baso % (Auto) Lymph # (Auto) Amelia # (Auto) Eos # (Auto) Baso # (Auto) Abs Immat Gran (auto) Absolute Neuts (auto) Absolute Nucleated RBC Nucleated RBC % (auto) Anion Gap Estim Creat Clear Calc Estimated GFR POC Glucose Random Glucose Calcium Magnesium Total Bilirubin Direct Bilirubin AST ALT Alkaline Phosphatase Total Protein Albumin Urine Color Urine Appearance Urine pH Ur Specific Collins Urine Protein Urine Glucose (UA) Urine Ketones Urine Blood Urine Nitrite Ur Leukocyte Esterase Urine RBC Urine WBC Ur Squamous Epith Cells Urine Bacteria Hyaline Casts Stool Occult Blood POSITIVE Stl C. cayetanensis PCR Not Detected Stool Rotavirus A PCR Not Detected Stl Adenov F 40/41 PCR Not Detected Stool Astrovirus (PCR) Not Detected Stool Campylobacter PCR Not Detected Stool Cryptosporidium PCR Not Detected Stl Sh Tox Pr E STEC PCR Not Detected Stool E coli O157 PCR Not applicable Stl Enterotoxigenic E PCR Not Detected Stool EPEC (PCR) Not Detected Stool EAEC (PCR) Not Detected Stl E. histolytica PCR Not Detected Stool Giardia Lamblia PCR Not Detected Stl P. shigelloides PCR Not Detected Stool Salmonella PCR Not Detected Stool Sapovirus (PCR) Not Detected Stl Shigella/EIEC PCR Not Detected St Y.enterocolitica PCR Not Detected Stool Vibrio (PCR) Not Detected Stl Vibrio cholerae PCR Not Detected Stl Norovirus GI/GII PCR Not Detected C. difficile Tox B Gene POSITIVE A* C. difficile Toxin A&B Negative C. difficile Interpret SEE NOTE COVID-19 ([facility]) COVID-19 Clin Com 08/29/22 08/30/22 08/30/22 22:26 03:33 03:33 MCV 96.6 MCH 28.6 MCHC 29.6 L RDW 17.6 H Plt Count 238 MPV 10.3 Immature Gran % (Auto) 0.6 H Neut % (Auto) 60.2 Lymph % (Auto) 29.8 Amelia % (Auto) 7.9 Eos % (Auto) 1.0 Baso % (Auto) 0.5 Lymph # (Auto) 3.3 Amelia # (Auto) 0.9 Eos # (Auto) 0.1 Baso # (Auto) 0.1 Abs Immat Gran (auto) 0.06 H Absolute Neuts (auto) 6.6 Absolute Nucleated RBC 0.000 Nucleated RBC % (auto) 0.0 Anion Gap 16 Estim Creat Clear Calc 12.6 Estimated GFR 17 POC Glucose Random Glucose 81 Calcium 8.0 L D Magnesium 1.9 Total Bilirubin Direct Bilirubin AST ALT Alkaline Phosphatase Total Protein Albumin Urine Color Yellow Urine Appearance Clear Urine pH 5.5 Ur Specific Collins 1.015 Urine Protein 100 (2+) H Urine Glucose (UA) Negative Urine Ketones Negative Urine Blood Negative Urine Nitrite Negative Ur Leukocyte Esterase Moderate (2+) H Urine RBC 0-2 Urine WBC 21-50 H Ur Squamous Epith Cells 0-2 Urine Bacteria None Seen Hyaline Casts 0-2 Stool Occult Blood Stl C. cayetanensis PCR Stool Rotavirus A PCR Stl Adenov F 40/41 PCR Stool Astrovirus (PCR) Stool Campylobacter PCR Stool Cryptosporidium PCR Stl Sh Tox Pr E STEC PCR Stool E coli O157 PCR Stl Enterotoxigenic E PCR Stool EPEC (PCR) Stool EAEC (PCR) Stl E. histolytica PCR Stool Giardia Lamblia PCR Stl P. shigelloides PCR Stool Salmonella PCR Stool Sapovirus (PCR) Stl Shigella/EIEC PCR St Y.enterocolitica PCR Stool Vibrio (PCR) Stl Vibrio cholerae PCR Stl Norovirus GI/GII PCR C. difficile Tox B Gene C. difficile Toxin A&B C. difficile Interpret COVID-19 ([facility]) COVID-19 Clin Com Microbiology Microbiology Results: Microbiology 08/29/22 22:48 Urine Culture - Preliminary Urine clean catch - Urine pacheco top No growth to date. Assessment and Plan (1) C. difficile colitis: Status: Acute (2) Acute on chronic kidney failure: Status: Acute Plan 86-year-old male with history of C diff colitis presents with 10 loose bowel movements a day over the last several days. Notes that he has been on antibiotics several times for urinary issues. His last episode of C diff and was October 2021 1. C diff colitis -Dificid b.i.d. -await ID consult... Continue volume repletion 2.AOCRI -returning to baseline with fluids -follow renals/divalents -continue bicarb 3.COPD -@ baseline -continue outpatient therapies Required to these 2 inpatient midnights going forward for IV volume repletion to normalize CKD and backdrop of C diff Time Spent With Patient Time: Total time managing care of this patient today ____ minutes. Quality Stroke Does the patient have a stroke diagnosis?: No VTE Prior VTE?: No VTE Risk Level:: Medical - moderate - high VTE Device Contraindication: Treatment Not Indicated VTE Drug Contraindication: N/A - Med Ordered
--- NOTE | 2022-08-30 17:28 | PC.NURSE ---
incontinence care provided. skin is intact. patient alert, oriented x4. able to make needs known. using call kay, bed in lowest locked position. will continue to make hourly rounds for safety
--- NOTE | 2022-08-30 23:16 | P.CNID_ITS ---
History of Present Illness Data of Consult Service Date: 08/30/22 Requesting physician: Rock Navarro Primary Care Provider: Filipe Malin MD HPI Reason for consult: diarrhea He has diarrhea, worse over last month. He has no fever or chills. He has fatigue and leaking catheter. Review of Systems Review of Systems: Yes all other systems are reviewed and are negative PMFSH Past Medical History Medical History Abnormal CT of the abdomen Afib Anemia BPH (benign prostatic hyperplasia) CAD (coronary artery disease) CKD (chronic kidney disease) COPD (chronic obstructive pulmonary disease) CVA (cerebral vascular accident) Taveras catheter in place [place] (hard of hearing) Hyperlipidemia Hyperparathyroidism Hypertension NSTEMI (non-ST elevated myocardial infarction) Smoker Spinal stenosis Urinary retention Family History Family History Mother CHF (congestive heart failure) Surgical History Surgical History H/O aortic valve replacement with porcine valve History of right-sided carotid endarterectomy History of suprapubic catheter S/P AVR (aortic valve replacement) Social History Social History Household Members: Family Housing: House Are you a primary rn palliative care to a significant other at home: No Do you presently have visiting nurse or other home services: No Alcohol intake: never Patient Tobacco Use Status: Current everyday Tobacco user Tobacco use type: Cigarette Cigarette Packs Per Day: 1 Cigarettes Per Day: 20.0 Years Smoked: 65+ Smoked in Last 30 Days: Yes Use of substances other than those prescribed or required for medical reasons: No Advance Directives: Yes Advance Directives on File: Yes Advance Directives Date on File: 10/25/21 Current occupational status: retired Meds Allergies Allergy/AdvReac Type Severity Reaction Status Date / Time No Known Allergies Allergy Verified 05/23/22 16:00 [No Known Allergies*] Active Medications: Current Medications Fidaxomicin (Fidaxomicin 200 Mg Tablet) 200 mg PO Q12H [facility] Last Admin: 08/30/22 21:01 Dose: 200 mg Heparin Sodium (Porcine) (Heparin Sodium,Porcine 5,000 Unit/Ml Vial) 5,000 unit SUBCUT Q12H [facility] Last Admin: 08/30/22 17:54 Dose: 5,000 unit Lactated Ringer's (Lr) 1,000 mls @ 100 mls/hr IVCONT .Q10H [facility] Last Admin: 08/30/22 15:24 Dose: 100 mls/hr Non-Formulary Medication (Methenamine Hippurate) 1 gm PO DAILY [facility] Pharmacy Consult (Consult Rx Perform Med Rec) 1 each MISCELLANE ONCE PRN PRN Reason: Consult order Pharmacy Consult (Consult Rx Perform Med Rec) 1 each MISCELLANE ONCE PRN PRN Reason: Consult order Sodium Bicarbonate (Sodium Bicarbonate 650 Mg Tablet) 650 mg PO TID [facility] Last Admin: 08/30/22 21:01 Dose: 650 mg Sodium Chloride (0.9 % Sodium Chloride Flush 3 Ml Syringe) 3 ml IVFLUSH QSHIFT [facility] Last Admin: 08/30/22 16:24 Dose: Not Given Home Medications Medication Instructions Recorded Confirmed Last Taken Type aspirin 81 mg tablet,delayed 81 mg PO DAILY 10/24/21 08/29/22 08/29/22 History release atorvastatin 10 mg tablet 1 tab PO BEDTIME 10/24/21 08/29/22 08/28/22 History cholecalciferol (vitamin D3) 50 50 mcg PO DAILY 10/24/21 08/29/22 08/29/22 History mcg (2,000 unit) tablet (Vitamin D3) cyanocobalamin (vitamin B-12) 1,500 mcg PO DAILY 10/24/21 08/29/22 08/29/22 History 1,500 mcg tablet,extended release ferrous sulfate 324 mg (65 mg 324 mg PO DAILY 10/24/21 08/29/22 08/29/22 History iron) tablet,delayed release metoprolol tartrate 25 mg tablet 2 tab PO DAILY 10/24/21 08/29/22 08/29/22 History sodium bicarbonate 650 mg tablet 650 mg PO TID 03/13/22 08/29/22 08/29/22 History oxycodone 20 mg tablet 1 tab PO QID PRN Pain 04/11/22 08/29/22 08/29/22 History finasteride 5 mg tablet 1 tab PO DAILY 08/29/22 08/29/22 08/29/22 History gabapentin 100 mg capsule 1 cap PO BEDTIME 08/29/22 08/29/22 08/28/22 History hydralazine 10 mg tablet 1 tab PO TID 08/29/22 08/29/22 08/29/22 History ibuprofen 600 mg tablet 600 mg PO Q6H PRN Pain 08/29/22 08/29/22 08/29/22 History methenamine hippurate 1 gram tablet 1 g PO DAILY 08/29/22 08/29/22 08/29/22 History metoprolol tartrate 25 mg tablet 25 mg PO BEDTIME 08/29/22 08/29/22 08/28/22 History terazosin 5 mg capsule 1 cap PO BEDTIME 08/29/22 08/29/22 08/28/22 History Physical Exam Vital Signs: Vital Signs: Last Vital Signs Temp 97.9 F 08/30/22 22:09 Pulse 80 08/30/22 22:09 Resp 19 08/30/22 22:09 BP 134/48 L 08/30/22 22:09 Pulse Ox 97 08/30/22 22:09 O2 Del Method 08/30/22 22:09 BMI result Body Mass Index 19.0 Const: General: cooperative HEENT: Head: Yes normal to inspection Face and sinus: Yes normal facial exam Mouth: Normal oral and palatal mucosa present Teeth and gingiva: dentition normal Eyes: General: appearance normal, both eyes and all related structures P upils: Equal, round and reactive pupils present Resp: Effort & Inspection: normal respiratory effort Cardio: Rate: regular rate Rhythm: regular rhythm GI: Palpation (GI): Soft to palpation and nontender : General: Yes no CVA tenderness Back/Spine/Pelvis: Back: no CVA tenderness Skin: General skin exam: no rashes or lesions noted Neuro: General: moves all extremities Cranial nerves: Yes Equal, round and reactive pupils present Extrem: General: Yes normal to inspection Psych: Appearance: grossly normal Results Labs CBC & Chem 7: 08/30/22 03:33 08/30/22 03:33 Labs: Short CBC 08/30/22 Range/Units 03:33 WBC 10.9 H (4.8-10.8) X10*3/uL Hgb 8.4 L (14.0-18.0) g/dl Hct 28.4 L (42.0-52.0) % Plt Count 238 (160-400) X10*3/uL BMP 08/30/22 03:33 Sodium 140 Potassium 4.8 Chloride 112 H Carbon Dioxide 17 L BUN 56 H Creatinine 3.48 H Calcium 8.0 L D Microbiology Microbiology Results: Microbiology 08/29/22 22:48 Urine clean catch - Urine pacheco top Urine Culture - Preliminary No growth to date. Assessment and Plan (1) Colitis: Status: Acute He has had Cdiff almost a year ago. He probably has antibiotic associted colitis as well reports being on antibiotics for urine (2) UTI (urinary tract infection): Status: Acute (3) Status post transcatheter aortic valve replacement (TAVR) using bioprosthesis: Status: Acute Plan Vancomycin 125 po qid for 10 days with likely taper after 125 tid one week 125 bid one week 125 mg daily one week 125 mg ,,Friday Dificid would likely have no effect on recurrence since likely second recurrenc e. Time Spent With Patient Time: Total time managing care of this patient today ____ minutes.
[2022-08-31] MEDS: vancomycin HCL 125 MG CAPSULE PO ×4 (00:02→19:41)
--- NOTE | 2022-08-31 00:41 | PC.NURSE ---
patient cleaned up and linens changed. warm blankets provided,patient in no apparent distress. call kay within reach. needs met. will continue to monitor.
[2022-08-31] MEDS: Lactated Ringers 1,000 ML 100 ML IVCONT ×2 (02:16→13:08)
[2022-08-31 04:05] VITALS: BP 166/63; PULSE 69; RESP 16; TEMP 36.8; O2SAT 97
[2022-08-31] MEDS: Heparin Sodium,Porcine 5,000 UNIT/ML VIAL 5000 UNIT SUBCUT ×2 (06:35→19:42)
[2022-08-31 07:16] VITALS: BP 152/53; PULSE 78; RESP 16; TEMP 36.1; O2SAT 94
[2022-08-31] MEDS: Sodium Bicarbonate 650 MG TABLET PO ×3 (10:04→19:41)
--- NOTE | 2022-08-31 10:18 | MHC.EDTECH ---
Patient has loose stool. Cleaned patient up and changed bedding.
[2022-08-31 15:17] VITALS: BP 165/63; PULSE 72; RESP 18; TEMP 36.9; O2SAT 97
--- NOTE | 2022-08-31 15:50 | P.PNIM_ITS ---
Subjective Subjective Date of Service: 08/31/22 Interval History: Continue was with multiple loose stools; cramping improved Review of Systems Denies chest pain Denies shortness of breath Denies nausea vomiting diarrhea Denies fever chills Physical Exam Vital Signs: Vital Signs: Last Vital Signs Temp 98.5 F 08/31/22 15:17 Pulse 72 08/31/22 15:17 Resp 18 08/31/22 15:17 BP 165/63 H 08/31/22 15:17 Pulse Ox 97 08/31/22 15:17 O2 Del Method 08/31/22 15:17 BMI result Body Mass Index 19.0 Const: Other: Awake alert acute distress HEENT: Other: Membranes dry Resp: Other: Clear to auscultation bilaterally no rales rhonchi wheezes Cardio: Other: No S4; positive S1-S2; no S3 murmurs rubs or gallops GI: Other: Soft nontender nondistended normoactive bowel sounds. Suprapubic tube without surrounding of erythema Extrem: Other: No edema bilaterally Objective Data Active Medications Heparin Sodium (Porcine) (Heparin Sodium,Porcine 5,000 Unit/Ml Vial) 5,000 unit SUBCUT Q12H [facility] Last Admin: 08/31/22 06:35 Dose: 5,000 unit Documented By: ALEJANDRINA Lactated Ringer's (Lr) 1,000 mls @ 100 mls/hr IVCONT .Q10H [facility] Last Admin: 08/31/22 13:08 Dose: 100 mls/hr Documented By: SHON Pharmacy Consult (Consult Rx Perform Med Rec) 1 each MISCELLANE ONCE PRN PRN Reason: Consult order Pharmacy Consult (Consult Rx Perform Med Rec) 1 each MISCELLANE ONCE PRN PRN Reason: Consult order Sodium Bicarbonate (Sodium Bicarbonate 650 Mg Tablet) 650 mg PO TID [facility] Last Admin: 08/31/22 10:04 Dose: 650 mg Documented By: SHON Sodium Chloride (0.9 % Sodium Chloride Flush 3 Ml Syringe) 3 ml IVFLUSH QSHIFT [facility] Last Admin: 08/31/22 09:56 Dose: Not Given Documented By: SHON Non-Admin Reason: IV Running Vancomycin HCl (Vancomycin Hcl 125 Mg Capsule) 125 mg PO Q6H [facility] Last Admin: 08/31/22 13:11 Dose: 125 mg Documented By: SHON Labs CBC & Chem 7: 08/30/22 03:33 08/30/22 03:33 Microbiology Microbiology Results: Microbiology 08/29/22 22:48 Urine Culture - Preliminary Urine clean catch - Urine pacheco top Staphylococcus species Assessment and Plan (1) C. difficile colitis: Status: Acute (2) Acute kidney injury superimposed on CKD: Status: Acute Plan 86-year-old male with history of C diff colitis presents with 10 loose bowel movements a day over the last several days. Notes that he has been on antibiotics several times for urinary issues. His last episode of C diff and was October 2021 1. C diff colitis -switch back to vanco by ID -taper as outlined -continue IV fluids until stools form 2.AOCRI -returning to baseline with fluids -follow renals/divalents -continue bicarb 3.COPD -@ baseline -continue outpatient therapies Required to these 2 inpatient midnights going forward for IV volume repletion to normalize CKD and backdrop of C diff Time Spent With Patient Time: Total time managing care of this patient today ____ minutes. Quality Stroke Does the patient have a stroke diagnosis?: No VTE Prior VTE?: No VTE Risk Level:: Medical - moderate - high VTE Device Contraindication: Treatment Not Indicated VTE Drug Contraindication: N/A - Med Ordered
[2022-08-31] MEDS: 0.9 % Sodium Chloride Flush 3 ML SYRINGE IVFLUSH (16:14)
[2022-08-31 18:28] VITALS: BMI 19.4
[2022-08-31 20:00] VITALS: BP 123/89; PULSE 88; RESP 18; TEMP 36.8; O2SAT 94
[2022-09-01] VITALS (11 sets, daily range): BP systolic 122–195; BP diastolic 60–96; PULSE 45–78; RESP 16–20; TEMP 36.1–37.2; O2SAT 96–100
[2022-09-01] MEDS: vancomycin HCL 125 MG CAPSULE PO ×5 (01:00→22:54)
[2022-09-01] MEDS: Heparin Sodium,Porcine 5,000 UNIT/ML VIAL 5000 UNIT SUBCUT ×2 (06:30→19:58)
[2022-09-01 06:32] LABS: MANUAL DIFF FLAG NO
[2022-09-01 06:37] LABS: Basophils Percent Auto 0.4 % (0-2); Eosinophils Absolute Auto 0.2 X10*3/uL (0.0-0.4); Eosinophils Percent Auto 1.6 % (0-4); Hematocrit 21.3 % (42.0-52.0); Imm Gran Abs Auto 0.06 X10*3/uL (0.00-0.03); Imm Gran Pct Auto 0.6 % (0.0-0.4); Lymphocytes Absolute Auto 3.7 X10*3/uL (1.2-4.9); Lymphocytes Percent Auto 39.6 % (20-40); Mean Corpuscular HGB Conc 31.9 g/dl (31.0-36.0); Mean Corpuscular Hemoglobin 29.8 pg (27.0-33.0); Mean Corpuscular Volume 93.4 fL (80.0-98.0); Mean Platelet Volume 10.5 fL (9.4-12.4); Monocytes Absolute Auto 0.7 X10*3/uL (0.1-1.2); Monocytes Percent Auto 7.3 % (2-11); Neutrophils Absolute Auto 4.7 x10*3/uL (2.0-8.3); Neutrophils Percent Auto 50.5 % (45-73); Platelet Count 224 X10*3/uL (160-400); Red Blood Count 2.28 X10*6/uL (4.60-5.80); Red Cell Distribution Width 17.4 % (11.0-16.0); White Blood Count 9.4 X10*3/uL (4.8-10.8)
[2022-09-01 06:58] LABS: Alanine Aminotransferase 23 U/L (0-40); Albumin Level 2.7 g/dL (3.5-5.0); Alkaline Phosphatase 39 U/L (39-117); Anion Gap 11 (12-20); Aspartate Amino Transferase 20 U/L (5-37); Bilirubin Total 0.3 mg/dL (0.0-1.0); Blood Urea Nitrogen 45 mg/dL (9-16); Calcium 7.9 mg/dL (8.4-10.2); Carbon Dioxide 21 mmol/L (22-29); Chloride 110 mmol/L (96-108); Creatinine Clr Calc Pharmacy 19.4; Estimated Glomerular Filt Rate 27; Glucose Fasting 77 mg/dL (60-99); Potassium 4.3 mmol/L (3.3-5.1); Sodium 138 mmol/L (135-145); Total Protein 4.7 g/dL (6.5-8.0)
[2022-09-01 07:12] LABS: Hemoglobin 6.8 g/dl (14.0-18.0)
[2022-09-01] MEDS: Metoprolol Tartrate 50 MG TABLET PO (09:33)
[2022-09-01] MEDS: 0.9 % Sodium Chloride Flush 3 ML SYRINGE IVFLUSH ×2 (09:33→20:04)
[2022-09-01] MEDS: Finasteride 5 MG TABLET PO (09:33)
[2022-09-01] MEDS: Cholecalciferol (Vitamin D3) 25 MCG TABLET 50 MCG PO (09:33)
[2022-09-01] MEDS: Cyanocobalamin (Vitamin B-12) 1,000 MCG TABLET 1500 MCG PO (09:34)
[2022-09-01] MEDS: Sodium Bicarbonate 650 MG TABLET PO ×3 (09:34→19:56)
[2022-09-01 11:14] LABS: Iron 55 mcg/dL (45-160); Lactate Dehydrogenase 184 U/L (118-273); Percent Iron Saturation 34 % (15-50); Total Iron Binding Capacity 164 mcg/dL (228-428); Unsaturated Iron Binding 109 ug/dL
[2022-09-01 11:29] LABS: Ferritin 55 ng/mL (20-250)
[2022-09-01 11:51] LABS: Folate 9.6 ng/mL (> or = 4.0); Vitamin B12 427 pg/mL (200-900)
--- NOTE | 2022-09-01 12:08 | P.PNIM_ITS ---
Subjective Subjective Date of Service: 09/01/22 Interval History: loose stools ongoing no fever no lightheadedness no abd pain Review of Systems Review of Systems: Yes all other systems are reviewed and are negative Physical Exam Vital Signs: Vital Signs: Last Vital Signs Temp 98.4 F 09/01/22 10:45 Pulse 50 09/01/22 10:45 Resp 20 09/01/22 10:45 BP 147/64 H 09/01/22 10:45 Pulse Ox 98 09/01/22 07:37 O2 Del Method 09/01/22 07:37 BMI result Body Mass Index 19.4 Gen: in no acute distress HEENT: sclera anicteric, moist mucus membranes Neck: supple Lungs: clear to auscultation bilaterally Heart: regular rate and rhythm, no murmurs Abd: soft, non-tender, non-distended : suprapubic catheter Ext: no edema Skin: warm/well-perfused Neuro: alert and oriented x3, no focal findings Psych: appropriate affect Objective Data Active Medications Atorvastatin Calcium (Atorvastatin Calcium 10 Mg Tablet) 10 mg PO BEDTIME [facility] Cyanocobalamin (Cyanocobalamin (Vitamin B-12) 1,000 Mcg Tablet) 1,500 mcg PO DAILY [facility] Last Admin: 09/01/22 09:34 Dose: 1,500 mcg Documented By: NICOLA Doxazosin Mesylate (Doxazosin Mesylate 2 Mg Tablet) 4 mg PO BEDTIME [facility] Finasteride (Finasteride 5 Mg Tablet) 5 mg PO DAILY [facility] Last Admin: 09/01/22 09:33 Dose: 5 mg Documented By: NICOLA Heparin Sodium (Porcine) (Heparin Sodium,Porcine 5,000 Unit/Ml Vial) 5,000 unit SUBCUT Q12H [facility] Last Admin: 09/01/22 06:30 Dose: 5,000 unit Documented By: ROSY Metoprolol Tartrate (Metoprolol Tartrate 50 Mg Tablet) 50 mg PO DAILY [facility]; Protocol Last Admin: 09/01/22 09:33 Dose: 50 mg Documented By: NICOLA Metoprolol Tartrate (Metoprolol Tartrate 25 Mg Tablet) 25 mg PO BEDTIME [facility]; Protocol Pharmacy Consult (Consult Rx Perform Med Rec) 1 each MISCELLANE ONCE PRN PRN Reason: Consult order Pharmacy Consult (Consult Rx Perform Med Rec) 1 each MISCELLANE ONCE PRN PRN Reason: Consult order Sodium Bicarbonate (Sodium Bicarbonate 650 Mg Tablet) 650 mg PO TID [facility] Last Admin: 09/01/22 09:34 Dose: 650 mg Documented By: NICOLA Sodium Chloride (0.9 % Sodium Chloride Flush 3 Ml Syringe) 3 ml IVFLUSH QSHIFT [facility] Last Admin: 09/01/22 09:33 Dose: 3 ml Documented By: NICOLA Vancomycin HCl (Vancomycin Hcl 125 Mg Capsule) 125 mg PO Q6H [facility] Last Admin: 09/01/22 11:48 Dose: 125 mg Documented By: NICOLA Vitamin D (Cholecalciferol (Vitamin D3) 25 Mcg Tablet) 50 mcg PO DAILY [facility] Last Admin: 09/01/22 09:33 Dose: 50 mcg Documented By: NICOLA Labs CBC & Chem 7: 09/01/22 05:32 09/01/22 05:32 Labs: Laboratory Results - last 24 hr 09/01/22 09/01/22 09/01/22 05:32 05:32 05:32 MCV 93.4 MCH 29.8 MCHC 31.9 RDW 17.4 H Plt Count 224 MPV 10.5 Immature Gran % (Auto) 0.6 H Neut % (Auto) 50.5 Lymph % (Auto) 39.6 [place] % (Auto) 7.3 Eos % (Auto) 1.6 Baso % (Auto) 0.4 Lymph # (Auto) 3.7 [place] # (Auto) 0.7 Eos # (Auto) 0.2 Baso # (Auto) 0.0 Abs Immat Gran (auto) 0.06 H Absolute Neuts (auto) 4.7 Absolute Nucleated RBC 0.000 Nucleated RBC % (auto) 0.0 Absolute Retic Cancelled Percent Retic Cancelled Immature Retic Fraction Cancelled Retic Hgb Equivalent Cancelled Anion Gap 11 L Estim Creat Clear Calc 19.4 Estimated GFR 27 Fasting Glucose 77 Calcium 7.9 L Iron 55 TIBC 164 L % Saturation 34 Unsat Iron Binding 109 Ferritin 55 Total Bilirubin 0.3 AST 20 ALT 23 Alkaline Phosphatase 39 Lactate Dehydrogenase 184 Total Protein 4.7 L Albumin 2.7 L Vitamin B12 427 Folate 9.6 Blood Type Antibody Screen Crossmatch 09/01/22 08:00 MCV MCH MCHC RDW Plt Count MPV Immature Gran % (Auto) Neut % (Auto) Lymph % (Auto) [place] % (Auto) Eos % (Auto) Baso % (Auto) Lymph # (Auto) [place] # (Auto) Eos # (Auto) Baso # (Auto) Abs Immat Gran (auto) Absolute Neuts (auto) Absolute Nucleated RBC Nucleated RBC % (auto) Absolute Retic Percent Retic Immature Retic Fraction Retic Hgb Equivalent Anion Gap Estim Creat Clear Calc Estimated GFR Fasting Glucose Calcium Iron TIBC % Saturation Unsat Iron Binding Ferritin Total Bilirubin AST ALT Alkaline Phosphatase Lactate Dehydrogenase Total Protein Albumin Vitamin B12 Folate Blood Type O Positive Antibody Screen NEGATIVE Crossmatch See Detail Microbiology Microbiology Results: Microbiology 08/29/22 22:48 Urine Culture - Final Urine clean catch - Urine pacheco top Staphylococcus epidermidis Assessment and Plan (1) C. 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 diff symptoms improve In my clinical judgment, the patient requires continued inpatient hospitalization for the following reasons: C difficile colitis, severe Time Spent With Patient Time: Total time managing care of this patient today _40___ minutes. Quality Stroke Does the patient have a stroke diagnosis?: No VTE Prior VTE?: No VTE Risk Level:: Medical - moderate - high VTE Device Contraindication: Treatment Not Indicated VTE Drug Contraindication: N/A - Med Ordered
[2022-09-01] MEDS: Doxazosin Mesylate 2 MG TABLET 4 MG PO (19:56)
[2022-09-01] MEDS: Metoprolol Tartrate 25 MG TABLET PO (19:57)
[2022-09-01] MEDS: Atorvastatin Calcium 10 MG TABLET PO (19:58)
[2022-09-02 03:34] VITALS: BP 165/72; PULSE 61; RESP 17; TEMP 36.1; O2SAT 95
[2022-09-02 03:50] VITALS: BP 156/68
[2022-09-02] MEDS: vancomycin HCL 125 MG CAPSULE PO ×4 (05:08→23:05)
[2022-09-02 06:08] LABS: MANUAL DIFF FLAG NO
[2022-09-02 06:18] LABS: Basophils Percent Auto 0.5 % (0-2); Eosinophils Absolute Auto 0.2 X10*3/uL (0.0-0.4); Eosinophils Percent Auto 2.1 % (0-4); Hematocrit 28.3 % (42.0-52.0); Hemoglobin 9.1 g/dl (14.0-18.0); Imm Gran Abs Auto 0.06 X10*3/uL (0.00-0.03); Imm Gran Pct Auto 0.7 % (0.0-0.4); Lymphocytes Absolute Auto 3.4 X10*3/uL (1.2-4.9); Lymphocytes Percent Auto 39.5 % (20-40); Mean Corpuscular HGB Conc 32.2 g/dl (31.0-36.0); Mean Corpuscular Hemoglobin 29.4 pg (27.0-33.0); Mean Corpuscular Volume 91.3 fL (80.0-98.0); Mean Platelet Volume 10.2 fL (9.4-12.4); Monocytes Absolute Auto 0.6 X10*3/uL (0.1-1.2); Neutrophils Absolute Auto 4.4 x10*3/uL (2.0-8.3); Neutrophils Percent Auto 50.2 % (45-73); Platelet Count 165 X10*3/uL (160-400); Red Cell Distribution Width 17.5 % (11.0-16.0); White Blood Count 8.7 X10*3/uL (4.8-10.8)
[2022-09-02 06:44] LABS: Alanine Aminotransferase 23 U/L (0-40); Albumin Level 2.7 g/dL (3.5-5.0); Alkaline Phosphatase 38 U/L (39-117); Anion Gap 10 (12-20); Aspartate Amino Transferase 19 U/L (5-37); Bilirubin Total 0.5 mg/dL (0.0-1.0); Blood Urea Nitrogen 38 mg/dL (9-16); Calcium 7.6 mg/dL (8.4-10.2); Carbon Dioxide 20 mmol/L (22-29); Chloride 112 mmol/L (96-108); Creatinine Clr Calc Pharmacy 21.3; Estimated Glomerular Filt Rate 30; Glucose Fasting 95 mg/dL (60-99); Potassium 4.2 mmol/L (3.3-5.1); Sodium 138 mmol/L (135-145); Total Protein 4.8 g/dL (6.5-8.0)
[2022-09-02 07:45] VITALS: BP 166/69; PULSE 62; RESP 16; TEMP 36.5; O2SAT 98
[2022-09-02 08:10] LABS: C Reactive Protein 0.31 mg/dL (< or = 0.50)
[2022-09-02] MEDS: Cyanocobalamin (Vitamin B-12) 1,000 MCG TABLET 1500 MCG PO (09:17)
[2022-09-02] MEDS: Metoprolol Tartrate 50 MG TABLET PO (09:17)
[2022-09-02] MEDS: Sodium Bicarbonate 650 MG TABLET PO ×3 (09:17→20:03)
[2022-09-02] MEDS: Cholecalciferol (Vitamin D3) 25 MCG TABLET 50 MCG PO (09:19)
[2022-09-02] MEDS: Heparin Sodium,Porcine 5,000 UNIT/ML VIAL 5000 UNIT SUBCUT ×2 (09:19→17:51)
[2022-09-02] MEDS: 0.9 % Sodium Chloride Flush 3 ML SYRINGE IVFLUSH ×2 (09:20→15:14)
[2022-09-02] MEDS: Finasteride 5 MG TABLET PO (09:20)
--- NOTE | 2022-09-02 09:45 | P.PNIM_ITS ---
Subjective Subjective Date of Service: 09/02/22 Interval History: ongoing diarrhea but no abd pain and no N/V wants to try solid foods Review of Systems Review of Systems: Yes all other systems are reviewed and are negative Physical Exam Vital Signs: Vital Signs: Last Vital Signs Temp 97.7 F 09/02/22 07:45 Pulse 62 09/02/22 07:45 Resp 16 09/02/22 07:45 BP 166/69 H 09/02/22 07:45 Pulse Ox 98 09/02/22 07:45 O2 Del Method 09/02/22 07:45 BMI result Body Mass Index 19.4 Gen: in no acute distress HEENT: sclera anicteric, moist mucus membranes Neck: supple Lungs: clear to auscultation bilaterally Heart: regular rate and rhythm, no murmurs Abd: soft, non-tender, non-distended : suprapubic catheter Ext: no edema Skin: warm/well-perfused Neuro: alert and oriented x3, no focal findings Psych: appropriate affect Objective Data Active Medications Atorvastatin Calcium (Atorvastatin Calcium 10 Mg Tablet) 10 mg PO BEDTIME [facility] Last Admin: 09/01/22 19:58 Dose: 10 mg Documented By: MALINDA Cyanocobalamin (Cyanocobalamin (Vitamin B-12) 1,000 Mcg Tablet) 1,500 mcg PO DAILY [facility] Last Admin: 09/02/22 09:17 Dose: 1,500 mcg Documented By: PATRICK Doxazosin Mesylate (Doxazosin Mesylate 2 Mg Tablet) 4 mg PO BEDTIME [facility] Last Admin: 09/01/22 19:56 Dose: 4 mg Documented By: MALINDA Finasteride (Finasteride 5 Mg Tablet) 5 mg PO DAILY [facility] Last Admin: 09/02/22 09:20 Dose: 5 mg Documented By: PATRICK Heparin Sodium (Porcine) (Heparin Sodium,Porcine 5,000 Unit/Ml Vial) 5,000 unit SUBCUT Q12H [facility] Last Admin: 09/02/22 09:19 Dose: 5,000 unit Documented By: PATRICK Metoprolol Tartrate (Metoprolol Tartrate 50 Mg Tablet) 50 mg PO DAILY [facility]; Protocol Last Admin: 09/02/22 09:17 Dose: 50 mg Documented By: PATRICK Metoprolol Tartrate (Metoprolol Tartrate 25 Mg Tablet) 25 mg PO BEDTIME [facility]; Protocol Last Admin: 09/01/22 19:57 Dose: 25 mg Documented By: MALINDA Pharmacy Consult (Consult Rx Perform Med Rec) 1 each MISCELLANE ONCE PRN PRN Reason: Consult order Pharmacy Consult (Consult Rx Perform Med Rec) 1 each MISCELLANE ONCE PRN PRN Reason: Consult order Sodium Bicarbonate (Sodium Bicarbonate 650 Mg Tablet) 650 mg PO TID [facility] Last Admin: 09/02/22 09:17 Dose: 650 mg Documented By: PATRICK Sodium Chloride (0.9 % Sodium Chloride Flush 3 Ml Syringe) 3 ml IVFLUSH QSHIFT [facility] Last Admin: 09/02/22 09:20 Dose: 3 ml Documented By: PATRICK Vancomycin HCl (Vancomycin Hcl 125 Mg Capsule) 125 mg PO Q6H [facility] Last Admin: 09/02/22 05:08 Dose: 125 mg Documented By: MALINDA Vitamin D (Cholecalciferol (Vitamin D3) 25 Mcg Tablet) 50 mcg PO DAILY [facility] Last Admin: 09/02/22 09:19 Dose: 50 mcg Documented By: PATRICK Labs CBC & Chem 7: 09/02/22 06:01 09/02/22 06:01 Labs: Laboratory Results - last 24 hr 09/01/22 09/01/22 09/01/22 05:32 05:32 05:32 MCV MCH MCHC RDW Plt Count MPV Immature Gran % (Auto) Neut % (Auto) Lymph % (Auto) [place] % (Auto) Eos % (Auto) Baso % (Auto) Lymph # (Auto) [place] # (Auto) Eos # (Auto) Baso # (Auto) Abs Immat Gran (auto) Absolute Neuts (auto) Absolute Nucleated RBC Nucleated RBC % (auto) Absolute Retic Cancelled Percent Retic Cancelled Immature Retic Fraction Cancelled Retic Hgb Equivalent Cancelled Anion Gap Estim Creat Clear Calc Estimated GFR Random Glucose Fasting Glucose Calcium Iron 55 TIBC 164 L % Saturation 34 Unsat Iron Binding 109 Ferritin 55 Total Bilirubin AST ALT Alkaline Phosphatase Lactate Dehydrogenase 184 C-Reactive Protein Total Protein Albumin Vitamin B12 427 Folate 9.6 Blood Type Antibody Screen Crossmatch 09/01/22 09/02/22 09/02/22 08:00 06:01 06:01 MCV 91.3 MCH 29.4 MCHC 32.2 RDW 17.5 H Plt Count 165 D MPV 10.2 Immature Gran % (Auto) 0.7 H Neut % (Auto) 50.2 Lymph % (Auto) 39.5 [place] % (Auto) 7.0 Eos % (Auto) 2.1 Baso % (Auto) 0.5 Lymph # (Auto) 3.4 [place] # (Auto) 0.6 Eos # (Auto) 0.2 Baso # (Auto) 0.0 Abs Immat Gran (auto) 0.06 H Absolute Neuts (auto) 4.4 Absolute Nucleated RBC 0.000 Nucleated RBC % (auto) 0.0 Absolute Retic Percent Retic Immature Retic Fraction Retic Hgb Equivalent Anion Gap 10 L Estim Creat Clear Calc 21.3 Estimated GFR 30 Random Glucose Cancelled Fasting Glucose 95 Calcium 7.6 L Iron TIBC % Saturation Unsat Iron Binding Ferritin Total Bilirubin 0.5 AST 19 ALT 23 Alkaline Phosphatase 38 L D Lactate Dehydrogenase C-Reactive Protein 0.31 Total Protein 4.8 L Albumin 2.7 L Vitamin B12 Folate Blood Type O Positive Antibody Screen NEGATIVE Crossmatch See Detail Microbiology Microbiology Results: Microbiology 08/29/22 22:48 Urine Culture - Final Urine clean catch - Urine pacheco top Staphylococcus epidermidis Assessment and Plan (1) C. 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 diff symptoms improve In my clinical judgment, the patient requires continued inpatient hospitalization for the following reasons: C difficile colitis, severe Time Spent With Patient Time: Total time managing care of this patient today _26___ minutes. Quality Stroke Does the patient have a stroke diagnosis?: No VTE Prior VTE?: No VTE Risk Level:: Medical - moderate - high VTE Device Contraindication: Treatment Not Indicated VTE Drug Contraindication: N/A - Med Ordered
[2022-09-02 15:35] VITALS: BP 142/70; PULSE 51; RESP 17; TEMP 36.4; O2SAT 98
[2022-09-02 19:51] VITALS: BP 164/72; PULSE 64; RESP 16; TEMP 36.1; O2SAT 97
[2022-09-02] MEDS: Atorvastatin Calcium 10 MG TABLET PO (20:03)
[2022-09-02] MEDS: Metoprolol Tartrate 25 MG TABLET PO (20:03)
[2022-09-02] MEDS: Doxazosin Mesylate 2 MG TABLET 4 MG PO (20:03)
[2022-09-03 03:23] VITALS: BP 170/76; PULSE 62; RESP 18; TEMP 36.4; O2SAT 95
[2022-09-03] MEDS: Heparin Sodium,Porcine 5,000 UNIT/ML VIAL 5000 UNIT SUBCUT ×2 (05:28→18:28)
[2022-09-03] MEDS: vancomycin HCL 125 MG CAPSULE PO ×4 (05:28→23:35)
[2022-09-03 06:33] LABS: MANUAL DIFF FLAG NO
[2022-09-03 06:38] LABS: Basophils Absolute Auto 0.1 X10*3/uL (0.0-0.2); Basophils Percent Auto 0.5 % (0-2); Eosinophils Absolute Auto 0.2 X10*3/uL (0.0-0.4); Eosinophils Percent Auto 1.8 % (0-4); Hematocrit 27.8 % (42.0-52.0); Hemoglobin 8.6 g/dl (14.0-18.0); Imm Gran Abs Auto 0.09 X10*3/uL (0.00-0.03); Imm Gran Pct Auto 0.8 % (0.0-0.4); Lymphocytes Absolute Auto 3.8 X10*3/uL (1.2-4.9); Lymphocytes Percent Auto 34.1 % (20-40); Mean Corpuscular HGB Conc 30.9 g/dl (31.0-36.0); Mean Corpuscular Hemoglobin 28.7 pg (27.0-33.0); Mean Corpuscular Volume 92.7 fL (80.0-98.0); Mean Platelet Volume 10.3 fL (9.4-12.4); Monocytes Absolute Auto 0.9 X10*3/uL (0.1-1.2); Monocytes Percent Auto 8.4 % (2-11); Neutrophils Absolute Auto 6.1 x10*3/uL (2.0-8.3); Neutrophils Percent Auto 54.4 % (45-73); Platelet Count 159 X10*3/uL (160-400); Red Cell Distribution Width 17.4 % (11.0-16.0); White Blood Count 11.1 X10*3/uL (4.8-10.8)
[2022-09-03 06:58] LABS: Alanine Aminotransferase 19 U/L (0-40); Albumin Level 2.8 g/dL (3.5-5.0); Alkaline Phosphatase 40 U/L (39-117); Anion Gap 11 (12-20); Aspartate Amino Transferase 19 U/L (5-37); Bilirubin Total 0.3 mg/dL (0.0-1.0); Blood Urea Nitrogen 42 mg/dL (9-16); Carbon Dioxide 20 mmol/L (22-29); Chloride 111 mmol/L (96-108); Creatinine Clr Calc Pharmacy 21.2; Estimated Glomerular Filt Rate 30; Glucose Fasting 75 mg/dL (60-99); Glucose Random 75 mg/dL (60-115); Potassium 4.8 mmol/L (3.3-5.1); Sodium 137 mmol/L (135-145); Total Protein 5.1 g/dL (6.5-8.0)
[2022-09-03 08:00] VITALS: BP 160/69; PULSE 58; RESP 17; TEMP 36.1; O2SAT 94
[2022-09-03] MEDS: Cyanocobalamin (Vitamin B-12) 1,000 MCG TABLET 1500 MCG PO (09:07)
[2022-09-03] MEDS: Metoprolol Tartrate 50 MG TABLET PO (09:07)
[2022-09-03] MEDS: Sodium Bicarbonate 650 MG TABLET PO ×3 (09:07→20:14)
[2022-09-03] MEDS: 0.9 % Sodium Chloride Flush 3 ML SYRINGE IVFLUSH ×3 (09:07→20:21)
[2022-09-03] MEDS: Cholecalciferol (Vitamin D3) 25 MCG TABLET 50 MCG PO (09:08)
[2022-09-03] MEDS: Finasteride 5 MG TABLET PO (09:08)
--- NOTE | 2022-09-03 12:02 | P.PNIM_ITS ---
Subjective Subjective Date of Service: 09/03/22 Interval History: diarrhea improving, 1 episode this AM so far no abd pain tolerating solid diet Review of Systems Review of Systems: Yes all other systems are reviewed and are negative Physical Exam Vital Signs: Vital Signs: Last Vital Signs Temp 97.0 F 09/03/22 08:00 Pulse 58 09/03/22 08:00 Resp 17 09/03/22 08:00 BP 160/69 H 09/03/22 08:00 Pulse Ox 94 09/03/22 08:00 O2 Del Method 09/03/22 08:00 BMI result Body Mass Index 19.4 Gen: in no acute distress HEENT: sclera anicteric, moist mucus membranes Neck: supple Lungs: clear to auscultation bilaterally Heart: regular rate and rhythm, no murmurs Abd: soft, non-tender, non-distended : suprapubic catheter Ext: no edema Skin: warm/well-perfused Neuro: alert and oriented x3, no focal findings Psych: appropriate affect Objective Data Active Medications Atorvastatin Calcium (Atorvastatin Calcium 10 Mg Tablet) 10 mg PO BEDTIME [facility] Last Admin: 09/02/22 20:03 Dose: 10 mg Documented By: GARRET Cyanocobalamin (Cyanocobalamin (Vitamin B-12) 1,000 Mcg Tablet) 1,500 mcg PO DAILY [facility] Last Admin: 09/03/22 09:07 Dose: 1,500 mcg Documented By: DEMOND Comments: Doxazosin Mesylate (Doxazosin Mesylate 2 Mg Tablet) 4 mg PO BEDTIME [facility] Last Admin: 09/02/22 20:03 Dose: 4 mg Documented By: GARRET Finasteride (Finasteride 5 Mg Tablet) 5 mg PO DAILY [facility] Last Admin: 09/03/22 09:08 Dose: 5 mg Documented By: DEMOND Heparin Sodium (Porcine) (Heparin Sodium,Porcine 5,000 Unit/Ml Vial) 5,000 unit SUBCUT Q12H [facility] Last Admin: 09/03/22 05:28 Dose: 5,000 unit Documented By: GARRET Metoprolol Tartrate (Metoprolol Tartrate 50 Mg Tablet) 50 mg PO DAILY [facility]; Protocol Last Admin: 09/03/22 09:07 Dose: 50 mg Documented By: DEMOND Metoprolol Tartrate (Metoprolol Tartrate 25 Mg Tablet) 25 mg PO BEDTIME [facility]; Protocol Last Admin: 09/02/22 20:03 Dose: 25 mg Documented By: GARRET Pharmacy Consult (Consult Rx Perform Med Rec) 1 each MISCELLANE ONCE PRN PRN Reason: Consult order Pharmacy Consult (Consult Rx Perform Med Rec) 1 each MISCELLANE ONCE PRN PRN Reason: Consult order Sodium Bicarbonate (Sodium Bicarbonate 650 Mg Tablet) 650 mg PO TID [facility] Last Admin: 09/03/22 09:07 Dose: 650 mg Documented By: DEMOND Sodium Chloride (0.9 % Sodium Chloride Flush 3 Ml Syringe) 3 ml IVFLUSH QSHIFT [facility] Last Admin: 09/03/22 09:07 Dose: 3 ml Documented By: DEMOND Vancomycin HCl (Vancomycin Hcl 125 Mg Capsule) 125 mg PO Q6H [facility] Last Admin: 09/03/22 11:53 Dose: 125 mg Documented By: DEMOND Vitamin D (Cholecalciferol (Vitamin D3) 25 Mcg Tablet) 50 mcg PO DAILY [facility] Last Admin: 09/03/22 09:08 Dose: 50 mcg Documented By: DEMOND Labs CBC & Chem 7: 09/03/22 05:42 09/03/22 05:42 Labs: Laboratory Results - last 24 hr 09/03/22 09/03/22 05:42 05:42 MCV 92.7 MCH 28.7 MCHC 30.9 L RDW 17.4 H Plt Count 159 L MPV 10.3 Immature Gran % (Auto) 0.8 H Neut % (Auto) 54.4 Lymph % (Auto) 34.1 [place] % (Auto) 8.4 Eos % (Auto) 1.8 Baso % (Auto) 0.5 Lymph # (Auto) 3.8 [place] # (Auto) 0.9 Eos # (Auto) 0.2 Baso # (Auto) 0.1 Abs Immat Gran (auto) 0.09 H Absolute Neuts (auto) 6.1 Absolute Nucleated RBC 0.000 Nucleated RBC % (auto) 0.0 Anion Gap 11 L Estim Creat Clear Calc 21.2 Estimated GFR 30 Random Glucose 75 Fasting Glucose 75 Calcium 8.0 L Total Bilirubin 0.3 AST 19 ALT 19 Alkaline Phosphatase 40 Total Protein 5.1 L Albumin 2.8 L Assessment and Plan (1) C. 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 diff symptoms improve, possibly tomorrow In my clinical judgment, the patient requires continued inpatient hospitalization for the following reasons: C difficile colitis, severe Time Spent With Patient Time: Total time managing care of this patient today _30___ minutes. Quality Stroke Does the patient have a stroke diagnosis?: No VTE Prior VTE?: No VTE Risk Level:: Medical - moderate - high VTE Device Contraindication: Treatment Not Indicated VTE Drug Contraindication: N/A - Med Ordered
--- NOTE | 2022-09-03 14:38 | MHC.CLN ---
RE: CONSULT ADDED ENSURE BID R/T RECENT WT LOSS SUPP TO PROVIDE 700KCALS, 40G PROTEIN MONITOR PO
[2022-09-03 15:21] VITALS: BP 146/55; PULSE 58; RESP 18; TEMP 37.1; O2SAT 94
[2022-09-03 19:15] VITALS: BP 164/72; PULSE 88; RESP 18; TEMP 37.1; O2SAT 97
[2022-09-03] MEDS: Metoprolol Tartrate 25 MG TABLET PO (20:14)
[2022-09-03] MEDS: Doxazosin Mesylate 2 MG TABLET 4 MG PO (20:14)
[2022-09-03] MEDS: Atorvastatin Calcium 10 MG TABLET PO (20:15)
[2022-09-04 03:17] VITALS: BP 177/83; PULSE 80; RESP 18; TEMP 36.3; O2SAT 95
[2022-09-04] MEDS: vancomycin HCL 125 MG CAPSULE PO ×2 (06:09→11:42)
[2022-09-04] MEDS: Heparin Sodium,Porcine 5,000 UNIT/ML VIAL 5000 UNIT SUBCUT (06:09)
[2022-09-04 07:15] LABS: Hematocrit 26.4 % (42.0-52.0); Hemoglobin 8.2 g/dl (14.0-18.0); Mean Corpuscular HGB Conc 31.1 g/dl (31.0-36.0); Mean Corpuscular Hemoglobin 29.3 pg (27.0-33.0); Mean Corpuscular Volume 94.3 fL (80.0-98.0); Mean Platelet Volume 10.7 fL (9.4-12.4); Platelet Count 159 X10*3/uL (160-400); Red Cell Distribution Width 17.3 % (11.0-16.0); White Blood Count 11.5 X10*3/uL (4.8-10.8)
[2022-09-04 07:31] LABS: Anion Gap 11 (12-20); Blood Urea Nitrogen 40 mg/dL (9-16); Calcium 8.1 mg/dL (8.4-10.2); Carbon Dioxide 21 mmol/L (22-29); Chloride 111 mmol/L (96-108); Creatinine Clr Calc Pharmacy 21.8; Estimated Glomerular Filt Rate 31; Glucose Random 71 mg/dL (60-115); Potassium 4.2 mmol/L (3.3-5.1); Sodium 139 mmol/L (135-145)
[2022-09-04 08:00] VITALS: BP 132/68; PULSE 67; RESP 18; TEMP 36.1; O2SAT 95
[2022-09-04] MEDS: 0.9 % Sodium Chloride Flush 3 ML SYRINGE IVFLUSH (08:47)
[2022-09-04] MEDS: Finasteride 5 MG TABLET PO (08:48)
[2022-09-04] MEDS: Cholecalciferol (Vitamin D3) 25 MCG TABLET 50 MCG PO (08:48)
[2022-09-04] MEDS: Sodium Bicarbonate 650 MG TABLET PO (08:48)
[2022-09-04] MEDS: Cyanocobalamin (Vitamin B-12) 1,000 MCG TABLET 1500 MCG PO (08:48)
[2022-09-04] MEDS: Metoprolol Tartrate 50 MG TABLET PO (08:48)
--- NOTE | 2022-09-04 12:38 | P.CDIC_ITS ---
CDI Concurrent Query Documentation Clarification: PHYSICIAN'S DOCUMENTATION REQUEST Date of Query: 09/04/22 1239 Patient Name: Adam Park Admit Date: 08/29/22 Dear Doctor, A review of the medical record indicates additional documentation may be needed. Please review below and update the documentation accordingly. Clinical Indicators: Is there a diagnosis that correlates with the findings below: Risk Factors/Clinical Indicators/Treatments Per earth science technical officer consult on 09/03: ADDED ENSURE BID R/T RECENT WT LOSS SUPP TO PROVIDE 700KCALS, 40G PROTEIN BMI: 19.4 Height: 5ft 8in Weight: 58kg Other indicators: -Patient with recurrent cdiff colitis w/ diarrhea -Patient with poor PO intake per RN shif t assessments -Per provider progress notes: with generalized weakness and decreased PO intake If possible, please provide an associated diagnosis related to the abnormal BMI, such as: Malnutrition: * Mild * Moderate * Severe For a BMI <= 19: * Underweight * Weight loss * Cachexia * Anorexia Or: * BMI is not significant * Other (please specify) * Unable to determine Use of terms such as suspected, likely, concern for, or probable (associated with a specific diagnosis that is being evaluated, monitored, or treated as if it exists) are acceptable and can be coded in the inpatient setting, when documented at the time of discharge. Thank you, Phuong Michelle MS, RN, CCRN Extension: [phone] Please use your independent medical judgment in providing your response. THIS QUERY IS PART OF THE PERMANENT MEDICAL RECORD Provider Response: Other Other Diagnosis: just poor intake not maln
--- NOTE | 2022-09-04 13:37 | P.DS_ITS ---
DS: Providers Provider Date of Service: 09/04/22 Date of admission: 08/29/22 18:53 Primary care physician: Filipe Malin MD Consults: 08/29/22 19:56 Consult to Infectious Diseases Routine Consulting Provider: Rebeca Montague Reason for consultation: restricted abx DS: Diagnosis Discharge Diagnosis (1) C. difficile colitis: Status: Acute (2) Acute kidney injury superimposed on CKD: Status: Acute (3) Anemia due to GI blood loss: Status: Acute (4) Anemia, chronic renal failure: Status: Acute DS: Summary Hospital Course Hospital Course: from admission history and physical by hospitalist Rock Navarro DO, 08/29/22: 86 year old male hx of chronic suprapubic catheter,chronic back pain, spinal stenosis, hypertension, hyperlipidemia, nonischhemic cardiomyopathy, aortic valve replacement sp TAVR, AFib on baby aspirin presents with acute on chronic diarrhea, abd pain X a few months however worsening since Latanya now with generalized weakness and decreased PO intake. Patient reports around 10 episodes of completely liquid brown diarrhea daily, he tells me he has been eating and drinking however less than usual. He reports he has been on multiple antibiotics within the past few months. He denies recent sick contacts, known around him with similar symptoms, denies travel. Has history of C diff (last time 10/25/21). This 86yo M with suprapubic catheter and hx C diff colitis was admitted for recurrent C diff colitis. Infectious Disease was consulted. He was treated with vancomycin taper and discharged on the following taper dosin mg qid one week 125 mg tid one week 125 mg bid one week 125 mg daily one week 125 mg MWF one week He had acute-chronic anemia due to GI blood loss and CKD and was transfused 2 units of packed red blood cells on 09/01/22 with appropriate rise in hemoglobin. 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 He was discharged home and should have repeat labs [H+H, BMP] in 1 week. Time Spent with Patient Time attestation: Total time managing care of this patient today _38___ minutes. Discharge coordination time: Greater than 30 minutes Quality: Safe Use of Opioids Does Pt have an Active Cancer Diagnosis on the Problem List?: No Quality: Stroke Does the patient have a stroke diagnosis?: No Physical Exam Vital Signs: Vital Signs: Last Vital Signs Temp 97.0 F 09/04/22 08:00 Pulse 67 09/04/22 08:00 Resp 18 09/04/22 08:00 BP 132/68 09/04/22 08:00 Pulse Ox 95 09/04/22 08:00 O2 Del Method 09/04/22 08:00 BMI result Body Mass Index 19.4 Gen: in no acute distress HEENT: sclera anicteric, moist mucus membranes Neck: supple Lungs: clear to auscultation bilaterally Heart: regular rate and rhythm, no murmurs Abd: soft, non-tender, non-distended Ext: no edema Skin: warm/well-perfused Neuro: alert and oriented x3, no focal findings Psych: appropriate affect DS: Data Data Completed and Pending Completed studies during hospitalization [Text1]: Laboratory Results WBC 11.5 X10*3/uL (4.8-10.8) H 09/04/22 05:41 RBC 2.80 X10*6/uL (4.60-5.80) L 09/04/22 05:41 Hgb 8.2 g/dl (14.0-18.0) L 09/04/22 05:41 Hct 26.4 % (42.0-52.0) L 09/04/22 05:41 MCV 94.3 fL (80.0-98.0) 09/04/22 05:41 MCH 29.3 pg (27.0-33.0) 09/04/22 05:41 MCHC 31.1 g/dl (31.0-36.0) 09/04/22 05:41 RDW 17.3 % (11.0-16.0) H 09/04/22 05:41 Plt Count 159 X10*3/uL (160-400) L 09/04/22 05:41 MPV 10.7 fL (9.4-12.4) 09/04/22 05:41 Immature Gran % (Auto) 0.8 % (0.0-0.4) H 09/03/22 05:42 Neut % (Auto) 54.4 % (45-73) 09/03/22 05:42 Lymph % (Auto) 34.1 % (20-40) 09/03/22 05:42 [place] % (Auto) 8.4 % (2-11) 09/03/22 05:42 Eos % (Auto) 1.8 % (0-4) 09/03/22 05:42 Baso % (Auto) 0.5 % (0-2) 09/03/22 05:42 Lymph # (Auto) 3.8 X10*3/uL (1.2-4.9) 09/03/22 05:42 [place] # (Auto) 0.9 X10*3/uL (0.1-1.2) 09/03/22 05:42 Eos # (Auto) 0.2 X10*3/uL (0.0-0.4) 09/03/22 05:42 Baso # (Auto) 0.1 X10*3/uL (0.0-0.2) 09/03/22 05:42 Abs Immat Gran (auto) 0.09 X10*3/uL (0.00-0.03) H 09/03/22 05:42 Absolute Neuts (auto) 6.1 x10*3/uL (2.0-8.3) 09/03/22 05:42 Absolute Nucleated RBC 0.000 X10*3/uL (0.0-0.012) 09/04/22 05:41 Nucleated RBC % (auto) 0.0 /100WBC (0.0-0.2) 09/04/22 05:41 Absolute Retic Cancelled 09/01/22 05:32 Percent Retic Cancelled 09/01/22 05:32 Immature Retic Fraction Cancelled 09/01/22 05:32 Retic Hgb Equivalent Cancelled 09/01/22 05:32 Sodium 139 mmol/L (135-145) 09/04/22 05:41 Potassium 4.2 mmol/L (3.3-5.1) 09/04/22 05:41 Chloride 111 mmol/L (96-108) H 09/04/22 05:41 Carbon Dioxide 21 mmol/L (22-29) L 09/04/22 05:41 Anion Gap 11 (12-20) L 09/04/22 05:41 BUN 40 mg/dL (9-16) H 09/04/22 05:41 Creatinine 2.06 mg/dL (0.5-1.4) H 09/04/22 05:41 Estim Creat Clear Calc 21.8 09/04/22 05:41 Estimated GFR 31 09/04/22 05:41 POC Glucose 258 mg/dL (60-115) H 08/29/22 18:12 Random Glucose 71 mg/dL (60-115) 09/04/22 05:41 Fasting Glucose 75 mg/dL (60-99) 09/03/22 05:42 Calcium 8.1 mg/dL (8.4-10.2) L 09/04/22 05:41 Magnesium 1.9 mg/dL (1.6-2.6) 08/30/22 03:33 Iron 55 mcg/dL (45-160) 09/01/22 05:32 TIBC 164 mcg/dL (228-428) L 09/01/22 05:32 % Saturation 34 % (15-50) 09/01/22 05:32 Unsat Iron Binding 109 ug/dL 09/01/22 05:32 Ferritin 55 ng/mL (20-250) 09/01/22 05:32 Total Bilirubin 0.3 mg/dL (0.0-1.0) 09/03/22 05:42 Direct Bilirubin < 0.2 mg/dL (0.0-0.5) 08/29/22 14:25 AST 19 U/L (5-37) 09/03/22 05:42 ALT 19 U/L (0-40) 09/03/22 05:42 Alkaline Phosphatase 40 U/L (39-117) 09/03/22 05:42 Lactate Dehydrogenase 184 U/L (118-273) 09/01/22 05:32 C-Reactive Protein 0.31 mg/dL (< or = 0.50) 09/02/22 06:01 Total Protein 5.1 g/dL (6.5-8.0) L 09/03/22 05:42 Albumin 2.8 g/dL (3.5-5.0) L 09/03/22 05:42 Vitamin B12 427 pg/mL (200-900) 09/01/22 05:32 Folate 9.6 ng/mL (> or = 4.0) 09/01/22 05:32 Urine Color Yellow 08/29/22 22:26 Urine Appearance Clear 08/29/22 22:26 Urine pH 5.5 (5.0-9.0) 08/29/22: Ur Specific [place] 1.015 (1.005-1.025) 08/29/22: Urine Protein 100 (2+) mg/dL (Neg-Trace) H 08/29/22: Urine Glucose (UA) Negative mg/dL (Negative) 08/29/22: Urine Ketones Negative mg/dL (Negative) 08/29/22: Urine Blood Negative (Negative) 08/29/22: Urine Nitrite Negative (Negative) 08/29/22: Ur Leukocyte Esterase Moderate (2+) (Negative) H 08/29/22: Urine RBC 0-2 /HPF (0-2) 08/29/22 Urine WBC 21-50 /HPF (0-5) H 08/29/22: Ur Squamous Epith Cells 0-2 /HPF (0-2) 08/29/22: Urine Bacteria None Seen (None Seen) 08/29/22: Hyaline Casts 0-2 /LPF (0-2) 08/29/22 22: Stool Occult Blood POSITIVE (NEGATIVE) 08/29/22 22:13 Stl C. cayetanensis PCR Not Detected (Not Detect.) 08/29/22 22:13 Stool Rotavirus A PCR Not Detected (Not Detect.) 08/29/22 22: Stl Adenov F 40/41 PCR Not Detected (Not Detect.) 08/29/22 22: Stool Astrovirus (PCR) Not Detected (Not Detect.) 08/29/22 22:13 Stool Campylobacter PCR Not Detected (Not Detect.) 08/29/22 22:13 Stool Cryptosporidium PCR Not Detected (Not Detect.) 08/29/22 22:13 Stl Sh Tox Pr E STEC PCR Not Detected (Not Detect.) 08/29/22 22:13 Stool E coli O157 PCR Not applicable (Not Detect.) 08/29/22 22:13 Stl Enterotoxigenic E PCR Not Detected (Not Detect.) 08/29/22 22:13 Stool EPEC (PCR) Not Detected (Not Detect.) 08/29/22 22: Stool EAEC (PCR) Not Detected (Not Detect.) 08/29/22 22:13 Stl E. histolytica PCR Not Detected (Not Detect.) 08/29/22 22:13 Stool Giardia Lamblia PCR Not Detected (Not Detect.) 08/29/22 22:13 Stl P. shigelloides PCR Not Detected (Not Detect.) 08/29/22 22:13 Stool Salmonella PCR Not Detected (Not Detect.) 08/29/22 22:13 Stool Sapovirus (PCR) Not Detected (Not Detect.) 08/29/22 22:13 Stl Shigella/EIEC PCR Not Detected (Not Detect.) 08/29/22 22:13 St Y.enterocolitica PCR Not Detected (Not Detect.) 08/29/22 22:13 Stool Vibrio (PCR) Not Detected (Not Detect.) 08/29/22 22:13 Stl Vibrio cholerae PCR Not Detected (Not Detect.) 08/29/22 22:13 Stl Norovirus GI/GII PCR Not Detected (Not Detect.) 08/29/22 22:13 C. difficile Tox B Gene POSITIVE (Negative) A* 08/29/22 22:13 C. difficile Toxin A&B Negative (Negative) 08/29/22 22:13 C. difficile Interpret SEE NOTE 08/29/22 22:13 COVID-19 (KARINA) Negative (Negative) 08/29/22 20:15 COVID-19 Clin Com See Note 08/29/22 20:15 Blood Type O Positive 09/01/22 08:00 Antibody Screen NEGATIVE 09/01/22 08:00 Crossmatch See Detail 09/01/22 08:00 Impressions Abdomen/Pelvis CT 08/29/22 16:40 IMPRESSION: 1. Extensive descending and sigmoid diverticulosis. Somewhat thick-walled appearance of the sigmoid colon without pericolonic inflammatory fat stranding, similar to prior. Findings could be due to chronic diverticular disease or possibly mild colitis. 2. No evidence of bowel obstruction or other acute intra-abdominal process. 3. Additional prominent findings, as described. Discharge Plan Discharge Anticipated Discharge Date/Time: 09/04/22 13:30 Patient Disposition: Home, Self-Care Discharge Diagnosis: Clostridium difficile colitis, anemia, KARLA/CKD Referrals: Filipe Malin MD [Primary Care Provider] - 1 Week Discharge Medications: New vancomycin 125 mg capsule See Rx Instructions .ROUTE .COMPLEX Qty: 73 0RF Rx Instructions: 1 cap qid x 1 week, then 1 cap tid x 1 week, then 1 cap bid x 1 week, then 1 cap daily x 1 week, then 1 cap on MWF x 1 week Continued oxycodone 20 mg tablet 1 tab PO QID PRN (Reason: Pain) atorvastatin 10 mg tablet 1 tab PO BEDTIME metoprolol tartrate 25 mg tablet 2 tab PO DAILY aspirin 81 mg Tablet,Delayed Release (Dr/Ec) 81 mg PO DAILY cyanocobalamin (vitamin B-12) 1,500 mcg Tablet Extended Release 1,500 mcg PO DAILY ferrous sulfate 324 mg (65 mg iron) Tablet,Delayed Release (Dr/Ec) 324 mg PO DAILY cholecalciferol (vitamin D3) [Vitamin D3] 50 mcg (2,000 unit) Tablet 50 mcg PO DAILY gabapentin 100 mg capsule 1 cap PO BEDTIME metoprolol tartrate 25 mg tablet 25 mg PO BEDTIME methenamine hippurate 1 gram tablet 1 g PO DAILY terazosin 5 mg capsule 1 cap PO BEDTIME hydralazine 10 mg tablet 1 tab PO TID finasteride 5 mg tablet 1 tab PO DAILY ibuprofen 600 mg Tablet 600 mg PO Q6H PRN (Reason: Pain) sodium bicarbonate 650 mg tablet 650 mg PO TID Discharge Orders: Discharge Order (Routine); Ordered 09/04/22 Ordered By: Betty Orellana Diet: Advance to usual diet Activity on Discharge: As tolerated Stand Alone Forms: Patient Portal Discharge page Other Ambulatory Orders: Basic Metabolic Panel (Routine) Timeframe: 1 Week Facility: [facility] - Location: Laboratory Ordered By: Betty Orellana Hemoglobin and Hematocrit (Routine) Timeframe: 1 Week Facility: [facility] - Location: Laboratory Ordered By: Betty Orellana Care Plan Goals: cure of C. difficile infection Health Concerns: Clostridium difficile colitis, anemia, KARLA/CKD, anemia, KARLA/CKD Plan of Treatment: vancomycin 125 mg capsules tapered as follows: 1 capsule 4x a day for a week, then 1 capsule 3x a day for a week, then 1 capsule 2x a day for a week, then 1 capsule 1x a day for a week, then 1 capsule on MWF for a week check labs in 1 week Please follow up with your primary care doctor within 1 week. Return to the hospital if you experience recurrent or worsening symptoms. Assessment: See Discharge Summary.
--- NOTE | 2022-09-04 14:27 | MHC.CM.PN ---
PT MEDICALLY CLEARED FOR D/C HOME SELF CARE, PT'S SON LIZZY TO TRANSPORT.
== END 2022-09-04 14:49 | disposition home or self-care (01) | DRG 372 ==
LOC: HO.ED 17:12 → HO.EDOVER 18:57 → HO.S3 08-31 15:16
PROVIDERS: Internal Medicine; Nurse Practitioner Family; Physician Assistant; Admitting Provider Hospitalist; Emergency Provider Emergency Medicine; PCP Internal Medicine; Visit Provider Family Medicine
DX: A04.71 Enterocolitis due to Clostridium difficile, recurrent (principal); D62 Acute posthemorrhagic anemia; N18.4 Chronic kidney disease, stage 4 (severe); N25.81 Secondary hyperparathyroidism of renal origin; I42.8 Other cardiomyopathies; K92.2 Gastrointestinal hemorrhage, unspecified; E78.5 Hyperlipidemia, unspecified; I25.2 Old myocardial infarction; I12.9 Hypertensive chronic kidney disease with stage 1 through stage 4 chronic kidney disease, or unspecified chronic kidney disease; D63.1 Anemia in chronic kidney disease; I48.91 Unspecified atrial fibrillation; I25.10 Atherosclerotic heart disease of native coronary artery without angina pectoris; E87.5 Hyperkalemia; N40.0 Benign prostatic hyperplasia without lower urinary tract symptoms; Z23 Encounter for immunization; Z95.3 Presence of xenogenic heart valve; Z20.822 Contact with and (suspected) exposure to COVID-19; F17.210 Nicotine dependence, cigarettes, uncomplicated; Z71.6 Tobacco abuse counseling; Z96.0 Presence of urogenital implants; Z79.82 Long term (current) use of aspirin; Z79.899 Other long term (current) drug therapy
CPT/HCPCS: 36415; 74176; 80048; 80053; 80076; 81001; 82272; 82607; 82728; 82746; 82947; 83540; 83615; 83735; 85025; 85027; 85045; 86140; 86850; 86900; 86901; 86923; 87086; 87088; 87186; 87324; 87493; 87507; 87635; 90686; 93005; 94640; 97161; 99285; P9016

== ENCOUNTER → 2022-09-13 13:22 | Outpatient (BNVA) | payer MEDICARE, SELFPAY | PROVIDERS: PCP Internal Medicine; Visit Provider Urology | DX: Z43.5 Encounter for attention to cystostomy (principal); R33.9 Retention of urine, unspecified | CPT/HCPCS: 51705 ==

== ENCOUNTER → 2022-10-11 13:31 | Outpatient (BNVA) | payer MEDICARE, SELFPAY | PROVIDERS: PCP Internal Medicine; Visit Provider Urology | DX: R33.9 Retention of urine, unspecified (principal) | CPT/HCPCS: 51705 ==

== ENCOUNTER → 2022-11-08 13:42 | Outpatient (BNVA) | payer MEDICARE, SELFPAY | PROVIDERS: PCP Internal Medicine; Visit Provider Urology | DX: R33.9 Retention of urine, unspecified (principal) | CPT/HCPCS: 51705; 99212 ==

== ENCOUNTER → 2022-12-06 13:59 | Outpatient (BNVA) | payer MEDICARE, SELFPAY | PROVIDERS: PCP Internal Medicine; Visit Provider Urology | DX: Z43.5 Encounter for attention to cystostomy (principal); R33.9 Retention of urine, unspecified | CPT/HCPCS: 51705 ==